=== PATIENT | male | born 1925 | race Caucasian/White ===

== ENCOUNTER 2016-09-03 13:26 | Inpatient (IN) | payer OTHER ==
[2016-09-03] MEDS ORDERED: NS 500 ML IV ONE (14:22)
[2016-09-03 14:53] LABS: % IMMATURE GRANULYOCYTES 0.6 % (0.0-1.1); ABSOLUTE IMMATURE GRANULOCYTES 0.07 10^3/uL (0.00-0.10); ADD DIFF? NO; ADD MORPH? NO; ADD SCAN? NO; ATYPICAL LYMPHOCYTE FLAG 0 (0-99); FRAGMENT RBC FLAG 20 (0-99); HEMATOCRIT 25.9 % (40.0-51.0); HEMOGLOBIN 8.1 g/dL (13.7-17.5); LEFT SHIFT FLG 0 (0-99); LIPEMIA HEMOLYSIS FLAG 80 (0-99); MEAN CELL HEMOGLOBIN 25.7 pg (27.9-34.1); MEAN CELL HEMOGLOBIN CONCENTR. 31.3 g/dL (32.4-36.7); MEAN CELL VOLUME 82.2 fL (81.5-99.8); MEAN PLATELET VOLUME 9.4 fL (8.7-11.7); PLATELET CLUMPS FLAG 0 (0-99); PLATELET COUNT 394 10^3/uL (150-400); RED BLOOD CELL COUNT 3.15 10^6/uL (4.40-6.38); RED CELL DISTRIBUTION WIDTH 15.2 % (11.5-15.2)
[2016-09-03 15:12] LABS: ALBUMIN 2.7 g/dL (3.5-5.0); BILIRUBIN,TOTAL 0.4 mg/dL (0.1-1.4); BILIRUBIN-CONJUGATED 0.4 mg/dL (0.0-0.5); CALCIUM 9.8 mg/dL (8.5-10.4); CREATININE 2.9 mg/dL (0.7-1.3); POTASSIUM 3.9 mEq/L (3.5-5.2); TOTAL PROTEIN 5.6 g/dL (6.3-8.2)
[2016-09-03] MEDS ORDERED: NS 1,000 ML IV ONE (15:19)
[2016-09-03 15:24] LABS: INR 1.05 (0.83-1.16); PROTIME(PATIENT) 13.5 SEC (12.0-15.0)
[2016-09-03] MEDS ORDERED: NS 100 ML BAG (MINI-BAG) IV ONE (15:30)
[2016-09-03 15:31] LABS: OCCULT BLOOD FECES POSITIVE (NEGATIVE)
--- NOTE | 2016-09-03 15:31 | UCPHY ---
H & P Patient Type: Established Chief Complaint Nursing Narrative: Pt reports lethargy & dairrhea x 1 1/2 wks. reports black with blood since testerday. Denied nausea, vomiting or pain. Time Seen by Provider: 09/03/16 14:59 HPI/ROS: This patient presents with generalized fatigue in the setting of dark tarry stools that started 4 days prior to arrival. He also had some loose stools for few days prior to that. He was taking Kaopectate for the loose stools last week but stopping Kaopectate and still had dark tarry stools and then noticed a bit of bright blood in his brighter blood-wine color this morning the prompted his visit. During the same period time he reports increasing fatigue over the past week and his reports that he has no ambition. He admits he does feel very tired and he also feels anorexia with some crampy abdominal discomfort in the periumbilical and lower belly region. He tells me that it is colon cancer ." However, he has never had endoscopy. ROS: He has not noticed any fevers. No lightheadedness. He reports no chest pain or shortness of breath. He has no upper belly pain. He denies any recent NSAID use other than a baby aspirin a day. No nausea or vomiting. 10 point ROS is otherwise negative Source: Patient, Family (His also provides history) Exam Limitations: No limitations - Personal History Current Tetanus/Diphtheria Vaccine: Yes - Medical/Surgical History PMH: Pacemaker Inguinal hernia repair Gout Renal insufficiency-sees Dr. Cardoza Hx Asthma: No Hx Chronic Respiratory Disease: No Hx Diabetes: No Hx Cardiac Disease: Yes Hx Renal Disease: No Hx Cirrhosis: No Hx Alcoholism: No Hx HIV/AIDS: No Hx Splenectomy or Spleen Trauma: No Other PMH: tonsils, pacemaker & 1 revision, inguinal hernia repair, gout - Family History Significant Family History: No pertinent family hx - Social History Smoking Status: Former smoker (Quit several years ago.) Alcohol Use: Other (Until this past handful of days the patient typically had a glass a wine or so at night of alcohol.) Drug Use: None - Physical Exam Exam: Vital signs are notable for positive orthostatic changes. When he stands up his systolic pressure drops to 88 & his pulse goes from 95 to 110. General Appearance: Pleasant elderly male Alert, no distress. Eyes: Pupils equal and round no pallor or injection. ENT, Mouth: Mucous membranes moist. Respiratory: There are no retractions, lungs are clear to auscultation. Cardiovascular: Regular rate and rhythm. Gastrointestinal: Hyperactive bowel sounds, soft, nontender Rectal exam: Patient has a 2 x 1 cm hemorrhoid with odd appearing tissue versus exophytic lesion. No particular tenderness. This is at 9 o'clock in lithotomy position stool is red wine color/melena Neurological: Alert with no focal deficits appreciated. Skin: Warm and dry, no rashes. Musculoskeletal: Neck is supple nontender. Extremities are symmetrical, full range of motion. Psychiatric: Patient is mildly agitated but otherwise pleasant and reluctantly cooperative DIFFERENTIAL DIAGNOSIS: After history and physical exam differential diagnosis was considered for ulcer/upper GI bleed versus lower GI bleed from colon cancer , diverticulitis, bleeding polyp, large internal hemorrhoid Constitutional: Initial Vital Signs Heart Rate 112 H 09/03/16 14:22 Blood Pressure 85/55 L 09/03/16 14:22 O2 Delivery Mode Room Air Allergies/Adverse Reactions: No Known Allergies Allergy (Verified 09/03/16 15:00) Home Medications: Medication Instructions Recorded Lisinopril [Zestril 10 mg (*)] 10 mg PO DAILY 10/26/11 Cholecalciferol (Vitamin D3) 2,000 unit PO DAILY 10/29/13 [Vitamin D-3] Lasix 09/03/16 PRILOSEC 09/03/16 Prednisone 09/03/16 Medical Decision Making - Diagnostics EKG Interpretation: 12 lead EKG performed at 3:36 p.m. Ventricular pacer with capture-rate of 86 QRS of 142 [place]: P of 0, QRS of-44, T of 110 Overall assessment ventricular pacing with capture at a rate of 86. ED Course/Re-evaluation: IV normal saline bolus placed on a monitor I counseled patient regarding the need for admission I spoke with the hospitalist at [facility] who accepts the patient to a PCU bed. At the moment no beds are available but some is being discharged soon per bed - board staff. I left a message with the on-call GI specialist-on his cell phone - Dr. Almazan at 15:30 as recommended by the staff at [facility] who answered the chief cardiopulmonary technologist phone number. I spoke with Dr. Almazan at approximately 3: 45 a.m. and he would like to proceed with upper endoscopy. Will transport the patient to [facility] for further workup and admission. They are working on a step-down unit bed has no PCU is available Discussion on stable GI bleed with melena orthostatic changes, acute anemia and history of renal insufficiency warranting emergent admission further evaluation - Data Points Laboratory Results: Laboratory Results 09/03/16 14:45 09/03/16 14:45 09/03/16 09/03/16 15:15 14:45 WBC 12.36 H 10^3/uL (3.80-9.50) RBC 3.15 L 10^6/uL (4.40-6.38) Hgb 8.1 L g/dL (13.7-17.5) Hct 25.9 L % (40.0-51.0) MCV 82.2 fL (81.5-99.8) MCH 25.7 L pg (27.9-34.1) MCHC 31.3 L g/dL (32.4-36.7) RDW 15.2 % (11.5-15.2) Plt Count 394 10^3/uL (150-400) MPV 9.4 fL (8.7-11.7) Neut % (Auto) 78.1 H % (39.3-74.2) Lymph % (Auto) 14.0 L % (15.0-45.0) Faulkner % (Auto) 6.7 % (4.5-13.0) Eos % (Auto) 0.4 L % (0.6-7.6) Baso % (Auto) 0.2 L % (0.3-1.7) Nucleat RBC Rel Count 0.0 % (0.0-0.2) Absolute Neuts (auto) 9.65 H 10^3/uL (1.70-6.50) Absolute Lymphs (auto) 1.73 10^3/uL (1.00-3.00) Absolute Monos (auto) 0.83 H 10^3/uL (0.30-0.80) Absolute Eos (auto) 0.05 10^3/uL (0.03-0.40) Absolute Basos (auto) 0.03 10^3/uL (0.02-0.10) Absolute Nucleated RBC 0.00 10^3/uL (0-0.01) Immature Gran % 0.6 % (0.0-1.1) Immature Gran # 0.07 10^3/uL (0.00-0.10) PT 13.5 SEC (12.0-15.0) INR 1.05 (0.83-1.16) APTT 32.0 SEC (23.0-38.0) VBG Lactic Acid 1.0 mmol/L (0.7-2.1) Sodium 136 mEq/L (134-144) Potassium 3.9 mEq/L (3.5-5.2) Chloride 104 mEq/L (97-110) Carbon Dioxide 19 L mEq/l (22-31) Anion Gap 13 mEq/L (8-16) BUN 62 H mg/dL (7-23) Creatinine 2.9 H mg/dL (0.7-1.3) Estimated GFR 21 Glucose 109 H mg/dL (70-100) Calcium 9.8 mg/dL (8.5-10.4) Total Bilirubin 0.4 mg/dL (0.1-1.4) Conjugated Bilirubin 0.4 mg/dL (0.0-0.5) Unconjugated Bilirubin 0.0 mg/dL (0.0-1.1) AST 15 L IU/L (17-59) ALT 25 IU/L (21-72) Alkaline Phosphatase 77 IU/L (38-126) Total Protein 5.6 L g/dL (6.3-8.2) Albumin 2.7 L g/dL (3.5-5.0) Stool Occult Bld Scrn POSITIVE H (NEGATIVE) C. difficile Tox (PCR) Pending Medications Given: Discontinued Medications Sodium Chloride (Ns) 500 mls @ 0 mls/hr IV ONCE ONE PRN Reason: As Directed Stop: 09/03/16 14:23 Last Admin: 09/03/16 15:20 Dose: Not Given Sodium Chloride (Ns) 1,000 mls @ 0 mls/hr IV ONCE ONE PRN Reason: Wide Open Stop: 09/03/16 15:20 Last Admin: 09/03/16 15:10 Dose: 1,000 mls Departure - Departure Disposition: [facility] In[facility] Acute Clinical Impression: Orthostatic hypotension, Acute blood loss anemia GI bleed Qualifiers: GI bleed type/associated pathology: melena Qualifier Code: (K92.1) Melena Condition: Serious - PQRS PQRS Measurement: 134: Depression screening and followup, PRIME MD-PHQ2 (12 years and older) Over the last 2 weeks, how often have you been bothered by any of the following problems? 1. Feeling down, depressed, or hopeless? 2. Little interest or pleasure in doing things? Patient answered no to both 1 and 2 130: Documentation of medications. Reviewed all patient medications, doses, route and frequency. 226: Do you smoke? [No.] 47: 65 and older: Advanced care planning. Patient designates surrogate decision maker as spouse. 51: 18 years old and older with diagnosis of COPD, spirometry performance. NA 52: 18 years old and older with COPD and symptoms of COPD or FEV1<60% predicted prescribed a B Agonist. NA
--- NOTE | 2016-09-03 15:32 | DX ---
PA and lateral chest x-ray 14 and 53 hours. History: Dry cough. Findings: Comparison to October 26, 2011. Heart size remains borderline enlarged. Pulmonary vasculature is mildly prominent centrally similar t o the prior study. The lungs are clear without consolidation, effusion, or pneumothorax. Dual-lead pa cemaker unit is in stable position. There has been mild progression of ankylosis midthoracic spine wi th stable mild compression superior endplate of T11. There is mild increase in compression of L1 sinc e the prior study. Impression: 1. No active cardiopulmonary disease seen. 2. 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 3. Stable mild to moderate anterior wedge compression superior endplate of T11 with mild increase in compression superior endplate of L1 since October,.
[2016-09-03] MEDS: PANTOPRAZOLE SODIUM 40 MG VIAL IVP ONE ×2 (15:36→16:02)
[2016-09-03] MEDS ORDERED: PANTOPRAZOLE SODIUM 80 MG in NS 100 ML IV ONE (15:38)
--- NOTE | 2016-09-03 15:38 | CPEKG ---
Heart Rate: 86 RR Interval: 698 P-R Interval: 226 QRSD Interval: 142 QT Interval: 404 QTC Interval: 484 P Donora: 0 QRS Donora: -44 T Wave Donora: 110 EKG Severity - ABNORMAL ECG - EKG Impression: VENTRICULAR-PACED RHYTHM Electronically Signed By: Henrry Echeverria 03-Sep-2016 16:14:41
[2016-09-03] MEDS ORDERED: LIDOCAINE 2% 5 ML SDV ONE (17:11)
[2016-09-03] MEDS ORDERED: PROPOFOL 200 MG/20 ML VIAL ONE (17:11)
[2016-09-03] MEDS ORDERED: METOCLOPRAMIDE 10 MG/2 ML VIAL IVP PRN (17:44)
--- NOTE | 2016-09-03 17:46 | SOAPPROG ---
SOAP Progress Note Assessment/Plan: Assessment:EGD for melena/hematochezia shows no bleeding sites. Large hiatal hernia sac. No blood or coffee grounds noted. Will proceed to colonoscopy tomorrow afternoon at 1630. Pt to start prep in AM. Plan: 09/03/16 17:45 Objective: Vital Signs Temp Pulse Resp BP Pulse Ox 36.3 C 89 18 107/60 97 09/03/16 14:40 09/03/16 16:00 09/03/16 16:00 09/03/16 16:00 09/03/16 16:00 09/02/16 09/03/16 09/04/16 05:59 05:59 05:59 Intake Total 1100 Balance 1100 PT 13.5 SEC (12.0-15.0) 09/03/16 14:45 INR 1.05 (0.83-1.16) 09/03/16 14:45 ICD10 Worksheet Patient Problems: Problems Problem Status Diagnosed Acute blood loss anemia Acute GI bleed Acute Orthostatic hypotension Acute Cellulitis Acute
--- NOTE | 2016-09-03 18:11 | GPN ---
[f rep st] PROCEDURE NOTE DATE OF PROCEDURE: 09/03/2016 PROCEDURE: Gastroscopy. INDICATIONS: Mr. Guthrie is an 89-year-old male with no previous history of GI disease, who has had several days of melena and reddish, maroon stools. He complains of lower abdominal pain. He has nev er had an ulcer. He denies being on any recent Advil or aspirin products. Endoscopy is being perfor med urgently to rule out upper GI hemorrhage as a source of the melena. DESCRIPTION OF PROCEDURE: After proper consent was obtained, patient was placed in left lateral dec ubitus position, received IV general anesthesia due to his ASA class of 3. Videogastroscope was introduced through the mouth, down the esophagus, into the stomach, past the pyl orus, into the duodenum. The findings were as follows: 1. Esophagus was normal. 2. Large hiatal hernia, sac approximately 5 cm with no Nicholas lesions or other abnormalities noted. 3. Stomach and duodenum were normal. 4. No blood, coffee-grounds, or other evidence of recent bleeding was noted. At this point, the instrument was removed. Patient tolerated the procedure well and was returned to the recovery room in stable condition. RECOMMENDATIONS: Patient will be admitted per hospitalist team. I have scheduled him for a colonosc opy tomorrow. He has never had 1 before. Bowel prep will start in the morning and he is scheduled f or 1630. If that exam is normal, then would need to consider a small bowel source of bleeding and pr obably need a camera pill endoscopy to evaluate that region. /[id number]/MODL
[2016-09-03] MEDS ORDERED: HYDROmorphONE/DILAUDID 1 MG/ML SYR IVP PRN (19:56)
[2016-09-03] MEDS ORDERED: PROMETHAZINE HCL 25 MG/ML VIAL IVP PRN (19:56)
[2016-09-03] MEDS ORDERED: ONDANSETRON DISINTEGRATING 4 MG TAB PO PRN (19:56)
[2016-09-03] MEDS ORDERED: oxyCODONE IR 5 MG TAB PO PRN (19:56)
[2016-09-03] MEDS ORDERED: PANTOPRAZOLE SODIUM 80 MG in NS 100 ML IV SCH (20:30)
[2016-09-03] MEDS: NS 1,000 ML IV SCH (20:33)
[2016-09-03 21:38] LABS: HEMATOCRIT 23.4 % (40.0-51.0); HEMOGLOBIN 7.3 g/dL (13.7-17.5)
--- NOTE | 2016-09-03 22:01 | GHP ---
[f rep st] HISTORY AND PHYSICAL DATE OF ADMISSION: 09/03/2016 CHIEF COMPLAINT: Weakness. HISTORY: This is an 89-year-old man with past medical history of chronic kidney disease and complete heart block, status post permanent pacemaker placement, who presents with complaints of generalized weakness and malaise in the setting of dark tarry stools followed by bright red blood per rectum for the last several days. He notes he was having dark and tarry stools for about 4 days, he thinks, and in the last 24 hours this has become bright red. He is somewhat of a poor historian, though he is a ble to tell me that he feels "blah" and as if he "has no ambition." When I asked him if this is a ch ronic or more acute thing, he states he thinks it is more acute and recent. He denies dizziness or l ightheadedness. He denies chest pain. He is really not very interested in giving me much of a histo ry and tells me that all of it is "in the chart somewhere." He denies NSAID use but does admit to ba by aspirin daily. He has never had similar symptoms in the past. PAST MEDICAL HISTORY: Includes: 1. Complete heart block, status post permanent pacemaker. 2. Gout. 3. Hypertension. 4. Chronic kidney disease; baseline creatinine around 2.1. 5. History of upper extremity deep vein thrombosis. 6. History of iron-deficiency anemia. PAST SURGICAL HISTORY: 1. Inguinal hernia repair. 2. Tonsillectomy. 3. Permanent pacemaker placement. FAMILY HISTORY: Parents are . SOCIAL HISTORY: The patient drinks about 2 beers per day. He denies tobacco use. He is . Mark lira has 2 children. REVIEW OF SYSTEMS: A 10-point review of systems obtained. Negative except as per HPI. MEDICATIONS: Include: 1. Prednisone. 2. Omeprazole. 3. Lisinopril. 4. Iron. 5. Lasix. 6. Cholecalciferol. ALLERGIES: No known drug allergies. PHYSICAL EXAM: VITAL SIGNS: BP 97/64, heart rate 96, respiratory rate 22, O2 sats 100% on room air, temperature is 35.7. GENERAL APPEARANCE: Elderly man. He is awake and alert. He is in no acute d istress. EYES: Anicteric. HENT: Oropharynx clear. CARDIOVASCULAR: Mildly tachy, regular, no MRG . PULMONARY: CTA bilaterally to anterior exam. ABDOMEN: Soft, nontender. Positive bowel sounds. EXTREMITIES: No clubbing, cyanosis, or edema. SKIN: Warm, dry, well perfused. NEURO/PSYCH: Orie nted and appropriate. He is a little bit reluctant to talk too much, however. CLINICAL DATA: Labs reviewed. Significant for white blood cell count of 12.36, hemoglobin of 8.1, d own from 9.9, hematocrit of 25.9, down from 31.5, platelets of 394. Coags are within normal limits. Lactic acid is normal. Chemistry is remarkable for BUN of 62, creatinine of 2.9, up from 42 and 2.4 . EKG, reviewed and interpreted independently by myself, shows V paced rhythm; otherwise unremarkable. No change from prior. Chest x-ray, reviewed and interpreted independently by myself, shows no active cardiopulmonary diseas e. ASSESSMENT AND PLAN: This is an 89-year-old man with past medical history of chronic kidney disease and gout, presenting with gastrointestinal bleed. 1. Gastrointestinal bleed, with concern for upper bleed given dark stools. He has already undergone EGD per Dr. Almazan which did not show evidence of active bleed but does show a large hiatal hernia s ac. Plan is for colonoscopy to be performed in the morning. He has been on a Protonix drip which wi ll be continued for now. Serial H and H will be obtained. He is on prednisone likely for his gout, possibly raising his risk for ulcer. However, again, this is not noted on upper endoscopy. 2. [id number] iron-deficiency anemia. Patient with baseline anemia; however, he does have a d ecrease in his usual H and H. No indication for transfusion at the time being. Again, we will repea t hemoglobin and hematocrit this evening and further evaluation for his blood loss is as per above. 3. Acute kidney injury on chronic kidney disease. Patient does have a mild bump in his creatinine a nd BUN in the setting of acute gastrointestinal bleed. IV fluids to run overnight. I suspect this i s a prerenal etiology in the setting of GI bleed and hypotension. 4. Hypertension. Currently blood pressure has been slightly low with orthostatic changes. Will hol d his usual BP medications including Lasix and lisinopril for now. 5. Gout. Prednisone is listed on his home medications. I am not clear if that is an active medicat ion currently, and patient was unable to give me that information. Should he remain hypotensive, I w ould consider stress dose steroids for possibility of acute adrenal insufficiency; though, again at t his point, this is more likely related to his gastrointestinal bleed and would prefer to avoid steroi ds if possible. DISPOSITION: Inpatient status. High-risk presenting issues. CODE STATUS: This is reviewed with the patient. He initially stated it does not make any difference , but then said he would like us to do "whatever we need to do." I did explain that we do not have t o do anything, that it is up to him, but he continued to state he would like us to do everything, and his would decide should he be unable to make decisions. In reviewing his chart, this is in jason ping with his preference in the past, so he will be kept full code. The patient is new to my care. Old records reviewed and summarized as per HPI and Past Medical Histo ry. Care plan reviewed with urgent care physician including plans for GI consultation. /[id number]/MODL
[2016-09-04 00:08] LABS: COLOR YELLOW; LEUKOCYTE ESTERASE,URINE NEGATIVE (NEGATIVE); NITRITE,URINE NEGATIVE (NEGATIVE)
[2016-09-04 00:09] LABS: BACTERIA TRACE /hpf (NONE SEEN); MUCUS TRACE /lpf (NONE-1+)
[2016-09-04] MEDS ORDERED: GOLYTELY 4000 ML BTL PO ONE (07:00)
[2016-09-04 07:03] LABS: % IMMATURE GRANULYOCYTES 0.4 % (0.0-1.1); ABSOLUTE IMMATURE GRANULOCYTES 0.04 10^3/uL (0.00-0.10); ADD DIFF? NO; ADD MORPH? NO; ADD SCAN? NO; ATYPICAL LYMPHOCYTE FLAG 0 (0-99); FRAGMENT RBC FLAG 10 (0-99); HEMOGLOBIN 8.1 g/dL (13.7-17.5); LEFT SHIFT FLG 0 (0-99); LIPEMIA HEMOLYSIS FLAG 80 (0-99); MEAN CELL HEMOGLOBIN 26.8 pg (27.9-34.1); MEAN CELL HEMOGLOBIN CONCENTR. 32.4 g/dL (32.4-36.7); MEAN CELL VOLUME 82.8 fL (81.5-99.8); MEAN PLATELET VOLUME 9.7 fL (8.7-11.7); PLATELET CLUMPS FLAG 0 (0-99); PLATELET COUNT 331 10^3/uL (150-400); RED BLOOD CELL COUNT 3.02 10^6/uL (4.40-6.38); RED CELL DISTRIBUTION WIDTH 15.6 % (11.5-15.2)
[2016-09-04 07:06] LABS: ANION GAP 7 mEq/L (8-16); CALCIUM 9.1 mg/dL (8.5-10.4); CARBON DIOXIDE 18 mEq/l (22-31); CHLORIDE 111 mEq/L (97-110); CREATININE 2.6 mg/dL (0.7-1.3); GLOMERULAR FILTRATION RATE 23; GLUCOSE 83 mg/dL (70-100); MAGNESIUM 1.5 mg/dL (1.6-2.3); POTASSIUM 3.9 mEq/L (3.5-5.2); SODIUM 136 mEq/L (134-144)
[2016-09-04] MEDS: PANTOPRAZOLE SODIUM 40 MG in NS 100 ML IV SCH ×2 (09:03→21:40)
--- NOTE | 2016-09-04 09:24 | HOSPPROG ---
Hospitalist Progress Note Assessment/Plan: #Acute blood loss anemia -due to hemaochezia/melena -EGD unrevealing. Colonoscopy showed sigmoid mass -H/H stable after transfusion #LGIB -colonoscopy by Dr. Almazan showed sigmoid mass. He will speak to surgery #Gout: cont pred #Diet: ADAt #DVT px: SCDs #Disp: warrant inpatient admission with acute GIB and new colon mass Subjective: denies pain or dizziness Objective: Vital Signs Temp Pulse Resp BP Pulse Ox 36.4 C 89 14 119/52 L 96 09/04/16 08:00 09/04/16 08:00 09/04/16 08:00 09/04/16 08:00 09/04/16 08:00 Laboratory Results 09/04/16 06:09 09/04/16 06:09 09/03/16 09/04/16 09/05/16 05:59 05:59 05:59 Intake Total 2310 Balance 2310 PT 13.5 SEC (12.0-15.0) 09/03/16 14:45 INR 1.05 (0.83-1.16) 09/03/16 14:45 - Physical Exam Constitutional: no apparent distress Eyes: PERRL, pale conjunctiva Ears, Nose, Mouth, Throat: moist mucous membranes Cardiovascular: regular rate and rhythym Respiratory: no respiratory distress, no rales or rhonchi Gastrointestinal: normoactive bowel sounds, soft, non-tender abdomen Skin: warm Musculoskeletal: full muscle strength Neurologic: AAOx3 Psychiatric: interacting appropriately ICD10 Worksheet Patient Problems: Problems Problem Status Diagnosed Acute blood loss anemia Acute GI bleed Acute Orthostatic hypotension Acute Cellulitis Acute
[2016-09-04] MEDS ORDERED: GOLYTELY 4000 ML BTL ONE (09:51)
[2016-09-04] MEDS: ONDANSETRON 4 MG/2 ML VIAL IVP PRN (10:36)
[2016-09-04 12:43] LABS: CLOSTRIDIUM DIFFICILE DNA NEGATIVE (NEGATIVE)
[2016-09-04 14:47] LABS: HEMATOCRIT 25.6 % (40.0-51.0); HEMOGLOBIN 8.4 g/dL (13.7-17.5)
--- NOTE | 2016-09-04 16:38 | GCON ---
[f rep st] CONSULTATION CRITICAL CARE CONSULTATION DATE OF CONSULTATION: 09/04/2016 REQUESTING PHYSICIAN: Cayden Rivera MD CHIEF COMPLAINT: GI bleed. HISTORY OF PRESENT ILLNESS: This 89-year-old male has noted dark tarry stools with some red blood as well per the rectum. He did not have hematemesis. There was no chest pain, and he had really no ab dominal pain with this. He has a history of chronic kidney disease and also has a complete heart blo ck with a permanent pacemaker implanted. He certainly has been weak over the past several days, but has not fallen or had any syncopal episodes. He takes aspirin daily but has not used any NSAIDs. EG D was done and was normal. PAST MEDICAL HISTORY: 1. Complete heart block with pacemaker. 2. Gout. 3. Hypertension. 4. Chronic kidney disease. 5. Remote history of upper extremity DVT. PAST SURGICAL HISTORY: 1. Inguinal hernia repair. 2. Tonsillectomy. 3. Permanent pacemaker. FAMILY HISTORY: No early arteriosclerotic vascular disease and no familial types of cancer. SOCIAL HISTORY: He has never used tobacco or illicit drugs. He drinks 2 beers a day. The patient h as 2 children. REVIEW OF SYSTEMS: Otherwise noncontributory x10 points, except as included above. PHYSICAL EXAMINATION: VITAL SIGNS: Blood pressure 98/50, with pulse of 90, respiratory rate of 16, oxygen saturation of 98% on room air, and he is afebrile. SKIN: Normal. HEAD: Without external ev idence of trauma. EYES: PERRL. External ocular movements full. Fundi not visualized. EARS: Tamanna ls clear. Tympanic membranes intact. NOSE: Without septal deviation or polyps. MOUTH/PHARYNX: Cl ear without lesions. NECK: Supple, without adenopathy. No jugular venous distention. CHEST: Alexandra r to auscultation and percussion. HEART: PMI at 5th intercostal space, midclavicular line. S1 and S2 normal. There is no S3, S4, or murmur. ABDOMEN: Soft, without organomegaly or masses. Bowel so unds are present. There is no tenderness. EXTREMITIES: Full range of motion without clubbing, cyan osis, or peripheral edema. DATABASE: As noted above, the EGD was negative. Chest x-ray shows no acute infiltrates. White bloo d count is 10,600 with hematocrit of 25, platelets of 331,000. INR is 1.005. Chemistry panel shows a slightly low bicarb of 18 with BUN of 55 and creatinine of 2.6. He has had an elevated creatinine before, but it looks like his baseline creatinine is closer to 2.1. IMPRESSION: Gastrointestinal bleed, presumably lower, as esophagogastroduodenoscopy was normal. PLAN: The patient will have a colonoscopy today. Repeat hematocrits will be obtained. CORE status has been discussed with the patient and there is some uncertainty with regard to that in the patient' s mind and, so far, he is a full code. /[id number]/MODL
[2016-09-04] MEDS ORDERED: PROPOFOL 200 MG/20 ML VIAL ONE ×2 (16:49)
--- NOTE | 2016-09-04 17:10 | SOAPPROG ---
SOAP Progress Note Assessment/Plan: Assessment:EGD for melena/hematochezia shows no bleeding sites. Large hiatal hernia sac. No blood or coffee grounds noted. Will proceed to colonoscopy tomorrow afternoon at 1630. Pt to start prep in AM. Plan: 09/03/16 17:45 09/04/16 17:09 Colonoscopy shows apple core lesion at 20 cm, unable to pass beyond it. Biopsies taken and distal margin tattooed with Parris ink. Prep was poor. Objective: Vital Signs Temp Pulse Resp BP Pulse Ox 36.3 C 90 16 98/50 L 98 09/04/16 12:00 09/04/16 12:00 09/04/16 12:00 09/04/16 12:00 09/04/16 12:00 Laboratory Results 09/04/16 14:40 09/04/16 06:09 09/03/16 09/04/16 09/05/16 05:59 05:59 05:59 Intake Total 2310 Balance 2310 PT 13.5 SEC (12.0-15.0) 09/03/16 14:45 INR 1.05 (0.83-1.16) 09/03/16 14:45 ICD10 Worksheet Patient Problems: Problems Problem Status Diagnosed Acute blood loss anemia Acute GI bleed Acute Orthostatic hypotension Acute Cellulitis Acute
--- NOTE | 2016-09-04 18:39 | GPN ---
[f rep st] PROCEDURE NOTE DATE OF PROCEDURE: 09/04/2016 PROCEDURE: Attempted colonoscopy with biopsies. INDICATIONS: The patient is an 89-year-old male admitted for hematochezia and anemia. Gastroscopy y esterday was essentially negative. Colonoscopy is being performed to evaluate. PROCEDURE IN DETAIL: After proper consent was obtained, the patient was placed in the left lateral d ecubitus position and received IV general anesthesia due to his ASA class of 3. The video colonoscope was introduced through the anus and rectum up the left colon approximately 20 c m, at which point a large apple-core lesion was noted. This could not be passed with the instrument. The lesion was biopsied and tattoos were placed with Parris ink just distal to the lesion. The remainder of the sigmoid colon and rectum was grossly normal. At this point, the instrument was removed. The patient tolerated procedure well and was returned to the recovery room in stable condition. RECOMMENDATIONS: The patient will need surgical consultation for this lesion regardless of its stage . This will probably cause obstruction in near future and is also the source of bleeding. I have frankie arzate with the family and will obtain surgical consultation. /[id number]/MODL
--- NOTE | 2016-09-04 20:33 | SOAPPROG ---
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 and anemia/ hct 25 abd soft wo masses or hernias risks and options fully discussed with pt and family who wish to proceed with surgery Plan: left colectomy in am/ may need colostomy 09/04/16 20:30 Objective: Vital Signs Temp Pulse Resp BP Pulse Ox 36.5 C 90 16 118/78 97 09/04/16 18:25 09/04/16 18:25 09/04/16 18:25 09/04/16 18:25 09/04/16 18:25 Laboratory Results 09/04/16 14:40 09/04/16 06:09 09/03/16 09/04/16 09/05/16 05:59 05:59 05:59 Intake Total 2310 250 Balance 2310 250 PT 13.5 SEC (12.0-15.0) 09/03/16 14:45 INR 1.05 (0.83-1.16) 09/03/16 14:45 ICD10 Worksheet Patient Problems: Problems Problem Status Diagnosed Acute blood loss anemia Acute GI bleed Acute Orthostatic hypotension Acute Cellulitis Acute
[2016-09-05] MEDS: NS 1,000 ML IV SCH ×2 (00:42→08:54)
[2016-09-05] MEDS ORDERED: cefOXitin SODIUM 1 GM in D5W 50 ML IV ONE (06:00)
[2016-09-05 06:42] LABS: % IMMATURE GRANULYOCYTES 0.4 % (0.0-1.1); ABSOLUTE IMMATURE GRANULOCYTES 0.05 10^3/uL (0.00-0.10); ADD DIFF? NO; ADD MORPH? NO; ADD SCAN? NO; ATYPICAL LYMPHOCYTE FLAG 0 (0-99); FRAGMENT RBC FLAG 10 (0-99); HEMATOCRIT 23.9 % (40.0-51.0); HEMOGLOBIN 7.7 g/dL (13.7-17.5); LEFT SHIFT FLG 0 (0-99); LIPEMIA HEMOLYSIS FLAG 80 (0-99); MEAN CELL HEMOGLOBIN 27.3 pg (27.9-34.1); MEAN CELL HEMOGLOBIN CONCENTR. 32.2 g/dL (32.4-36.7); MEAN CELL VOLUME 84.8 fL (81.5-99.8); MEAN PLATELET VOLUME 9.2 fL (8.7-11.7); PLATELET CLUMPS FLAG 0 (0-99); PLATELET COUNT 285 10^3/uL (150-400); RED BLOOD CELL COUNT 2.82 10^6/uL (4.40-6.38); RED CELL DISTRIBUTION WIDTH 15.5 % (11.5-15.2)
[2016-09-05 07:07] LABS: ANION GAP 11 mEq/L (8-16); CALCIUM 9.2 mg/dL (8.5-10.4); CARBON DIOXIDE 17 mEq/l (22-31); CHLORIDE 114 mEq/L (97-110); CREATININE 2.5 mg/dL (0.7-1.3); GLOMERULAR FILTRATION RATE 24; GLUCOSE 74 mg/dL (70-100); POTASSIUM 4.3 mEq/L (3.5-5.2); SODIUM 142 mEq/L (134-144)
[2016-09-05] MEDS ORDERED: cefOXitin SODIUM 2 GM in D5W 100 ML IV ONE (07:43)
--- NOTE | 2016-09-05 08:28 | HOSPPROG ---
Hospitalist Progress Note Assessment/Plan: #Acute blood loss anemia -due to hemaochezia/melena -EGD unrevealing. Colonoscopy showed sigmoid mass -H/H stable after transfusion #LGIB -colonoscopy by Dr. Almazan showed sigmoid mass. -plan for colectomy today by Dr. Cortes #Gout: cont pred #CKD: Cr at baseline #Diet: NPO for surgery #DVT px: SCDs #Disp: warrant inpatient admission with acute GIB and new colon mass Subjective: no abd pain Objective: Vital Signs Temp Pulse Resp BP Pulse Ox 36.3 C 99 21 H 99/58 L 96 09/05/16 08:00 09/05/16 08:00 09/05/16 08:00 09/05/16 08:00 09/05/16 08:00 Laboratory Results 09/05/16 06:30 09/05/16 06:30 09/04/16 09/05/16 09/06/16 05:59 05:59 05:59 Intake Total 2310 1440 Output Total 50 Balance 2310 1390 PT 13.5 SEC (12.0-15.0) 09/03/16 14:45 INR 1.05 (0.83-1.16) 09/03/16 14:45 - Physical Exam Constitutional: no apparent distress Eyes: PERRL Ears, Nose, Mouth, Throat: moist mucous membranes, hearing normal Cardiovascular: regular rate and rhythym, no murmur, rub, or gallop Respiratory: no respiratory distress, no rales or rhonchi Gastrointestinal: normoactive bowel sounds, soft, non-tender abdomen Genitourinary: no bladder fullness Skin: warm Musculoskeletal: full muscle strength Neurologic: CN II-XII Intact ICD10 Worksheet Patient Problems: Problems Problem Status Diagnosed Acute blood loss anemia Acute GI bleed Acute Orthostatic hypotension Acute Cellulitis Acute
--- NOTE | 2016-09-05 09:36 | PDINTPN ---
Portfolio Administrator Progress Note Assessment/Plan: Assessment: #GIB due to a sigmoid mass #CKD with a baseline creatinine of about Plan: Surgery today, ? colostomy He is on IV saline now and will need close attention to fluids periop due to his renal disease 09/05/16 09:31 Subjective: He is hungry Objective: Vital Signs Temp Pulse Resp BP Pulse Ox 36.3 C 99 21 H 99/58 L 96 09/05/16 08:00 09/05/16 08:00 09/05/16 08:00 09/05/16 08:00 09/05/16 08:00 Laboratory Results 09/05/16 06:30 09/05/16 06:30 09/04/16 09/05/16 09/06/16 05:59 05:59 05:59 Intake Total 2310 1440 Output Total 50 Balance 2310 1390 PT 13.5 SEC (12.0-15.0) 09/03/16 14:45 INR 1.05 (0.83-1.16) 09/03/16 14:45 Physical Exam - Physical Exam General Appearance: alert, no apparent distress EENT: normal ENT inspection Neck: non-tender Respiratory: lungs clear Cardiac/Chest: regular rate, rhythm Abdomen: non-tender Back: Normal inspection Skin: warm/dry Lymphatic: no adenopathy Extremities: non-tender, No pedal edema Neuro/Psych: alert, oriented x 3 ICD10 Worksheet Patient Problems: Problems Problem Status Diagnosed Acute blood loss anemia Acute GI bleed Acute Orthostatic hypotension Acute Cellulitis Acute
[2016-09-05] MEDS ORDERED: HEPARIN 1000 UNIT/1 ML MDV ONE (11:03)
[2016-09-05] MEDS ORDERED: ceFAZolin 1 GM/5 ML SYR ONE (11:04)
[2016-09-05] MEDS ORDERED: BUPIVACAINE 0.5% 30 ML SDV ONE (11:04)
--- NOTE | 2016-09-05 12:14 | SOAPPROG ---
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 and anemia/ hct 25 abd soft wo masses or hernias risks and options fully discussed with pt and family who wish to proceed with surgery Plan: left colectomy in am/ may need colostomy 09/04/16 20:30 09/05/16 12:13 HCT SLIGHTLY LOWER/ ABD SOFT/ RISKS AND OPTIONS FULLY DISCUSSED AGAIN/ PROCEED WITH LAP COLECTOMY Objective: Vital Signs Temp Pulse Resp BP Pulse Ox 36.4 C 100 18 103/55 L 99 09/05/16 11:34 09/05/16 11:34 09/05/16 11:34 09/05/16 11:34 09/05/16 11:34 Laboratory Results 09/05/16 06:30 09/05/16 06:30 09/04/16 09/05/16 09/06/16 05:59 05:59 05:59 Intake Total 2310 1440 Output Total 50 Balance 2310 1390 PT 13.5 SEC (12.0-15.0) 09/03/16 14:45 INR 1.05 (0.83-1.16) 09/03/16 14:45 ICD10 Worksheet Patient Problems: Problems Problem Status Diagnosed Acute blood loss anemia Acute GI bleed Acute Orthostatic hypotension Acute Cellulitis Acute
[2016-09-05] MEDS ORDERED: fentaNYL 250 MCG/5 ML INJ ONE ×2 (12:26→13:25)
[2016-09-05] MEDS ORDERED: PROPOFOL 200 MG/20 ML VIAL ONE (12:27)
[2016-09-05] MEDS ORDERED: ROCURONIUM 100 MG/10 ML VIAL ONE (12:28)
--- NOTE | 2016-09-05 15:08 | POSTOPPROG ---
Post Op Note Date of Operation: 09/05/16 Surgeon: Tito Cortes Jewel Hole Cornerer: karen Anesthesiologist: warm Anesthesia: GET(General Endotracheal) Pre-op Diagnosis: obstructing colon cancer Post-op Diagnosis: same with perforation and abscess Indication: anemia, obstruction Procedure: laplow ant colectomy with hartmans and end colostomy/ drainage pelvic absce Findings: large cancer at pelvic reflection with abscess and perforation Inf/Abcess present in the surg proc area at time of surgery?: Yes Depth: Organ Space EBL: 50-100 Complications: 0 Drains: Vick Bailon Specimen(s): sigmoid colon
[2016-09-05] MEDS ORDERED: OXYCODONE/APAP 5/325 TAB PO PRN (15:11)
[2016-09-05] MEDS ORDERED: fentaNYL 100 MCG/2 ML INJ ONE (15:13)
[2016-09-05] MEDS: predniSONE 5 MG TAB PO SCH (16:37)
[2016-09-05 16:38] LABS: HEMATOCRIT 28.1 % (40.0-51.0); HEMOGLOBIN 8.6 g/dL (13.7-17.5)
[2016-09-05] MEDS: D5W 1/2 NS W/ 20 KCl/L 1,000 ML IV SCH (16:45)
[2016-09-05] MEDS: PANTOPRAZOLE SODIUM 40 MG in NS 100 ML IV SCH ×2 (16:50→21:47)
[2016-09-06] MEDS: D5W 1/2 NS W/ 20 KCl/L 1,000 ML IV SCH ×2 (04:45→16:12)
[2016-09-06 05:06] LABS: % IMMATURE GRANULYOCYTES 0.4 % (0.0-1.1); ABSOLUTE IMMATURE GRANULOCYTES 0.06 10^3/uL (0.00-0.10); ADD DIFF? NO; ADD MORPH? NO; ADD SCAN? NO; ATYPICAL LYMPHOCYTE FLAG 0 (0-99); FRAGMENT RBC FLAG 20 (0-99); HEMATOCRIT 23.5 % (40.0-51.0); HEMOGLOBIN 7.6 g/dL (13.7-17.5); LEFT SHIFT FLG 30 (0-99); LIPEMIA HEMOLYSIS FLAG 80 (0-99); MEAN CELL HEMOGLOBIN 27.4 pg (27.9-34.1); MEAN CELL HEMOGLOBIN CONCENTR. 32.3 g/dL (32.4-36.7); MEAN CELL VOLUME 84.8 fL (81.5-99.8); MEAN PLATELET VOLUME 9.5 fL (8.7-11.7); PLATELET CLUMPS FLAG 10 (0-99); PLATELET COUNT 306 10^3/uL (150-400); RED BLOOD CELL COUNT 2.77 10^6/uL (4.40-6.38); RED CELL DISTRIBUTION WIDTH 15.9 % (11.5-15.2)
[2016-09-06 05:21] LABS: ANION GAP 10 mEq/L (8-16); CALCIUM 8.8 mg/dL (8.5-10.4); CARBON DIOXIDE 16 mEq/l (22-31); CHLORIDE 117 mEq/L (97-110); CREATININE 2.8 mg/dL (0.7-1.3); GLOMERULAR FILTRATION RATE 21; GLUCOSE 167 mg/dL (70-100); POTASSIUM 4.5 mEq/L (3.5-5.2); SODIUM 143 mEq/L (134-144)
[2016-09-06] MEDS: ERTAPENEM 0.5 GM in NS 100 ML IV SCH (08:30)
[2016-09-06] MEDS ORDERED: ERTAPENEM 1 GM in NS 100 ML IV SCH (09:00)
[2016-09-06] MEDS: PANTOPRAZOLE SODIUM 40 MG in NS 100 ML IV SCH ×2 (09:01→20:16)
--- NOTE | 2016-09-06 09:53 | PDINTPN ---
Flame Channeler Progress Note Assessment/Plan: Assessment: #GIB due to a sigmoid mass. Post surgery with resection and colostomy. Perforation and abscess were found #CKD with a baseline creatinine of about Plan: Ertapenem Fungal cultures pending No colostomy drainage so far, 150ml out of NG He is on IV saline now and will get close attention to fluids periop due to his renal disease which is stable so far with a creatinine of 2.8 and a K of 4.5 and good u/o 09/06/16 09:55 Subjective: Minimal abdominal pain, some mild right shoulder pain, ? reason Objective: Vital Signs Temp Pulse Resp BP Pulse Ox 36.6 C 92 17 105/51 L 96 09/06/16 08:00 09/06/16 08:00 09/06/16 08:00 09/06/16 08:00 09/06/16 08:00 Microbiology 09/05/16 13:17 Gram Stain - Final Pelvis - Aspirate Laboratory Results 09/06/16 04:55 09/06/16 04:55 09/05/16 09/06/16 09/07/16 05:59 05:59 05:59 Intake Total 1440 3218 Output Total 50 1660 Balance 1390 1558 PT 13.5 SEC (12.0-15.0) 09/03/16 14:45 INR 1.05 (0.83-1.16) 09/03/16 14:45 Physical Exam - Physical Exam General Appearance: alert, no apparent distress EENT: PERRL/EOMI Neck: non-tender Respiratory: lungs clear Cardiac/Chest: regular rate, rhythm Abdomen: soft Back: Normal inspection Skin: warm/dry Lymphatic: no adenopathy Extremities: non-tender, No pedal edema Neuro/Psych: alert ICD10 Worksheet Patient Problems: Problems Problem Status Diagnosed Acute blood loss anemia Acute GI bleed Acute Orthostatic hypotension Acute Cellulitis Acute
--- NOTE | 2016-09-06 10:56 | SOAPPROG ---
SOAP Progress Note Assessment/Plan: Assessment/Plan -89yo M POD#1 s/p Matt's for low, perforated rectosigmoid Ca - VSS, HDS overnight. Pain minimal to none this AM - Hb down to <8, will need recheck later today to ensure doesnt need transfusion but EBL intra-op was minimal - JOSIANE serosang, will cont to bulb suction - OK for clears today, ostomy beefy red with some bloody sweat in appliance. Await more robust ostomy output before advancing diet. 09/06/16 10:54 Subjective: Denies pain, alert and oriented. Objective: Vital Signs Temp Pulse Resp BP Pulse Ox 36.6 C 92 17 105/51 L 96 09/06/16 08:00 09/06/16 08:00 09/06/16 08:00 09/06/16 08:00 09/06/16 08:00 Microbiology 09/05/16 13:17 Gram Stain - Final Pelvis - Aspirate Laboratory Results 09/06/16 04:55 09/06/16 04:55 09/05/16 09/06/16 09/07/16 05:59 05:59 05:59 Intake Total 1440 3218 Output Total 50 1660 Balance 1390 1558 PT 13.5 SEC (12.0-15.0) 09/03/16 14:45 INR 1.05 (0.83-1.16) 09/03/16 14:45 ICD10 Worksheet Patient Problems: Problems Problem Status Diagnosed Acute blood loss anemia Acute GI bleed Acute Orthostatic hypotension Acute Cellulitis Acute
[2016-09-06] MEDS: ACETAMINOPHEN 325 MG TAB PO PRN (11:30)
[2016-09-06] MEDS: predniSONE 5 MG TAB PO SCH (11:50)
[2016-09-06 12:36] LABS: HEMATOCRIT 24.4 % (40.0-51.0); HEMOGLOBIN 7.6 g/dL (13.7-17.5)
--- NOTE | 2016-09-06 15:00 | HOSPPROG ---
Hospitalist Progress Note Assessment/Plan: #Acute blood loss anemia -due to hemaochezia/melena -EGD unrevealing. Colonoscopy showed sigmoid mass -H/H stable. serial CBC #Perforated rectosigmoid mass with abscess -s/p Matt POD #1 -gram negative dyllan on culture -cont Ertapenem #LGIB -colonoscopy by Dr. Almazan showed sigmoid mass. -H/H stable. Monitor closely, transfuse if Hb <7 #Gout: cont pred #CKD: Cr at baseline -monitor fluid status closely #Diet: clears #DVT px: SCDs #Disp: warrants ICU admission for serial abd checks, H/H Subjective: denies abd pain Objective: Vital Signs Temp Pulse Resp BP Pulse Ox 36.7 C 99 12 112/45 L 77 L 09/06/16 12:00 09/06/16 12:00 09/06/16 12:00 09/06/16 12:00 09/06/16 12:30 Microbiology 09/04/16 02:41 Stool Culture - Final Stool 09/05/16 13:17 Gram Stain - Final Pelvis - Aspirate Laboratory Results 09/06/16 12:10 09/06/16 04:55 09/05/16 09/06/16 09/07/16 05:59 05:59 05:59 Intake Total 1440 3218 Output Total 50 1660 Balance 1390 1558 PT 13.5 SEC (12.0-15.0) 09/03/16 14:45 INR 1.05 (0.83-1.16) 09/03/16 14:45 - Physical Exam Constitutional: no apparent distress Eyes: PERRL Ears, Nose, Mouth, Throat: moist mucous membranes Cardiovascular: regular rate and rhythym, no murmur, rub, or gallop Respiratory: no respiratory distress Gastrointestinal: other (ostomy with pink tissue, sanginous drainage. JOSIANE in place. Min TTP) Genitourinary: no bladder fullness Skin: warm Musculoskeletal: full muscle strength Neurologic: AAOx3 Psychiatric: interacting appropriately ICD10 Worksheet Patient Problems: Problems Problem Status Diagnosed Acute blood loss anemia Acute GI bleed Acute Orthostatic hypotension Acute Cellulitis Acute
[2016-09-06] MEDS ORDERED: FUROSEMIDE 20 MG/2 ML VIAL IVP ONE (15:26)
[2016-09-07] MEDS: D5W 1/2 NS W/ 20 KCl/L 1,000 ML IV SCH ×2 (02:18→17:19)
[2016-09-07 06:01] LABS: % IMMATURE GRANULYOCYTES 0.7 % (0.0-1.1); ABSOLUTE IMMATURE GRANULOCYTES 0.11 10^3/uL (0.00-0.10); ADD DIFF? NO; ADD MORPH? YES; ADD SCAN? NO; ATYPICAL LYMPHOCYTE FLAG 0 (0-99); FRAGMENT RBC FLAG 10 (0-99); HEMATOCRIT 20.2 % (40.0-51.0); LEFT SHIFT FLG 0 (0-99); LIPEMIA HEMOLYSIS FLAG 80 (0-99); MEAN CELL HEMOGLOBIN 27.1 pg (27.9-34.1); MEAN CELL HEMOGLOBIN CONCENTR. 32.2 g/dL (32.4-36.7); MEAN CELL VOLUME 84.2 fL (81.5-99.8); MEAN PLATELET VOLUME 9.5 fL (8.7-11.7); PLATELET CLUMPS FLAG 0 (0-99); PLATELET COUNT 250 10^3/uL (150-400); RED CELL DISTRIBUTION WIDTH 16.2 % (11.5-15.2)
[2016-09-07 06:17] LABS: HEMOGLOBIN 6.5 g/dL (13.7-17.5)
[2016-09-07 06:21] LABS: ANION GAP 8 mEq/L (8-16); CARBON DIOXIDE 17 mEq/l (22-31); CHLORIDE 116 mEq/L (97-110); CREATININE 3.5 mg/dL (0.7-1.3); GLOMERULAR FILTRATION RATE 17; GLUCOSE 101 mg/dL (70-100); POTASSIUM 5.3 mEq/L (3.5-5.2); SODIUM 141 mEq/L (134-144)
[2016-09-07 06:45] LABS: PLATELET ESTIMATE ADEQUATE (ADEQ)
[2016-09-07 06:47] LABS: HYPOCHROMIA 2+
[2016-09-07 06:48] LABS: MICROCYTES 1+; POLYCHROMASIA 1+
--- NOTE | 2016-09-07 09:59 | SOAPPROG ---
SOMADI Progress Note Assessment/Plan: Assessment/Plan -89yo M POD#2 s/p Matt's for low, perforated rectosigmoid Ca - Hb down to 6.5 today, receiving transfusion. Does not appear to be currently bleeding and Hb drift likely not 2/2 acute bleed - Abdomen soft, Incision open and c/d/i/. Stoma beefy red with some sweat in appliance. will await more robust ostomy output before advancing diet - Josiane serosang, will monitor today, likely d/c tomorrow. - Path pending 09/06/16 10:54 09/07/16 09:57 Subjective: Doing well, denies pain. Wants to go home Objective: Vital Signs Temp Pulse Resp BP Pulse Ox 36.3 C 85 22 H 110/49 L 98 09/07/16 08:00 09/07/16 08:00 09/07/16 08:00 09/07/16 08:00 09/07/16 08:00 Microbiology 09/05/16 13:17 Gram Stain - Final Pelvis - Aspirate 09/04/16 02:41 Stool Culture - Final Stool Laboratory Results 09/07/16 05:57 09/07/16 05:57 09/06/16 09/07/16 09/08/16 05:59 05:59 05:59 Intake Total 3218 1603 Output Total 1660 925 Balance 1558 678 PT 13.5 SEC (12.0-15.0) 09/03/16 14:45 INR 1.05 (0.83-1.16) 09/03/16 14:45 Physical Exam - Physical Exam General Appearance: alert, no apparent distress Respiratory: chest non-tender, lungs clear Cardiac/Chest: regular rate, rhythm Abdomen: other (soft, Incision c/d/i, Stoma beefy red with some sweat in appliance. JOSIANE serosang) ICD10 Worksheet Patient Problems: Problems Problem Status Diagnosed Acute blood loss anemia Acute GI bleed Acute Orthostatic hypotension Acute Cellulitis Acute
[2016-09-07] MEDS: ACETAMINOPHEN 325 MG TAB PO PRN (10:26)
[2016-09-07] MEDS: predniSONE 5 MG TAB PO SCH (10:27)
[2016-09-07] MEDS ORDERED: ALTEPLASE 2 MG VIAL IVP PRN (10:40)
[2016-09-07] MEDS: PANTOPRAZOLE SODIUM 40 MG in NS 100 ML IV SCH ×2 (12:02→20:33)
[2016-09-07] MEDS: ERTAPENEM 0.5 GM in NS 100 ML IV SCH (12:41)
--- NOTE | 2016-09-07 12:49 | HOSPPROG ---
Hospitalist Progress Note Assessment/Plan: #Acute blood loss anemia -due to hemaochezia/melena. Blood loss from surgery -Hb < 7 this morning. Getting 1 unit RBC #Perforated rectosigmoid mass with abscess -s/p Matt POD #2 -Klebsiella, Strep intermedius on culture; awaiting sensitivities. Blood cx NGTD -cont Ertapenem -pathology pending #LGIB -colonoscopy by Dr. Almazan showed sigmoid mass. -H/H stable. Monitor closely, transfuse if Hb <7 #Gout: cont pred #Acute on CKD -Cr 3.5 today which was of concern given acute bleed, hypotension -K 5.3, will repeat this after. Monitor fluid status closely #Diet: clears #DVT px: SCDs #Disp: warrants ICU admission for serial abd checks, H/H Subjective: feels very weak today Objective: Vital Signs Temp Pulse Resp BP Pulse Ox 36.3 C 85 22 H 110/49 L 98 09/07/16 08:00 09/07/16 08:00 09/07/16 08:00 09/07/16 08:00 09/07/16 08:00 Microbiology 09/05/16 13:17 Gram Stain - Final Pelvis - Aspirate 09/04/16 02:41 Stool Culture - Final Stool Laboratory Results 09/07/16 05:57 09/07/16 05:57 09/06/16 09/07/16 09/08/16 05:59 05:59 05:59 Intake Total 3218 1603 Output Total 1660 925 Balance 1558 678 PT 13.5 SEC (12.0-15.0) 09/03/16 14:45 INR 1.05 (0.83-1.16) 09/03/16 14:45 - Physical Exam Constitutional: other (very tired-appearing today) Eyes: PERRL, pale conjunctiva Ears, Nose, Mouth, Throat: moist mucous membranes, hearing normal Cardiovascular: regular rate and rhythym, no murmur, rub, or gallop Respiratory: no respiratory distress, no rales or rhonchi Gastrointestinal: other (ostomy with pink tissue; sanginous drainage. surgical site C/D/I) Genitourinary: no bladder fullness Skin: warm Musculoskeletal: full muscle strength Neurologic: AAOx3 Psychiatric: interacting appropriately ICD10 Worksheet Patient Problems: Problems Problem Status Diagnosed Acute blood loss anemia Acute GI bleed Acute Orthostatic hypotension Acute Cellulitis Acute
--- NOTE | 2016-09-07 12:57 | PDINTPN ---
Medical Payment Poster Progress Note Assessment/Plan: Assessment: #GIB due to a sigmoid mass. Post surgery with resection and colostomy. Perforation and abscess were found. Minimal abdominal pain. #CKD with a baseline creatinine of about 2.5, now 3.5 Plan: Ertapenem Fungal cultures pending No colostomy drainage so far, 150ml out of NG He is on IV saline now and will get close attention to fluids periop due to his renal disease which is stable so far with a creatinine of 2.8 and a K of 4.5 and good u/o Check weight 09/07/16 12:57 Subjective: Slightly more abdominal pain today Objective: Vital Signs Temp Pulse Resp BP Pulse Ox 36.3 C 85 22 H 110/49 L 98 09/07/16 08:00 09/07/16 08:00 09/07/16 08:00 09/07/16 08:00 09/07/16 08:00 Microbiology 09/05/16 13:17 Gram Stain - Final Pelvis - Aspirate 09/04/16 02:41 Stool Culture - Final Stool Laboratory Results 09/07/16 05:57 09/07/16 05:57 09/06/16 09/07/16 09/08/16 05:59 05:59 05:59 Intake Total 3218 1603 Output Total 1660 925 Balance 1558 678 PT 13.5 SEC (12.0-15.0) 09/03/16 14:45 INR 1.05 (0.83-1.16) 09/03/16 14:45 Physical Exam - Physical Exam General Appearance: no apparent distress EENT: normal ENT inspection Neck: non-tender Respiratory: lungs clear Cardiac/Chest: regular rate, rhythm Abdomen: soft Back: Normal inspection Skin: warm/dry Lymphatic: no adenopathy Extremities: non-tender, No pedal edema Neuro/Psych: alert ICD10 Worksheet Patient Problems: Problems Problem Status Diagnosed Acute blood loss anemia Acute GI bleed Acute Orthostatic hypotension Acute Cellulitis Acute
--- NOTE | 2016-09-07 13:51 | IR ---
PICC Clinical Indication: Abscess and GI bleeding central venous access. Procedures Performed: 1. Ultrasound-guided puncture of the basilic vein. 2. Microwire was passed under fluoroscopic guidance and serially exchanged for the peel-away. 3. Measuring wire was used to estimate the length of the PICC, and it was trimmed at the 42 cm pham. 4. The PICC was advanced to the SVC/right atrial junction over the measuring wire. The measuring wire and dilator were removed. EBL less than 10 mL. Specimens: None. Fluoroscopy Time: 0.2 minutes. 2.2 mGy Operative Report: After obtaining informed consent and performing a formal timeout, the right arm was prepped and draped. 1% lidocaine local field block was achieved. The basilic vein was punctured unde r direct ultrasound visualization after deeming the vessel patent. Microwire was passed under fluoros copic guidance and serially exchanged for the peel-away dilator. The measuring wire was used to estim ate the length of the PICC. The PICC was trimmed to 42 cm. The PICC was advanced over the measuring w roby to the SVC/right atrial junction. The measuring wire and peel-away were removed. The PICC was sec ured and dressed with sterile gauze dressing. Plan: Double lumen PICC ready for use. Informed consent: Obtained from the patient. Risks and benefits were discussed. Crosscutting Measure: Patient's current list of medications including all known prescriptions, over- the-counters, herbals, and vitamin/mineral/dietary supplements are reviewed. Medications' name, dosa ge, frequency, and route of administration are confirmed. Prophylactic Antibiotic: Cefazolin was not ordered and administered for antimicrobial prophylaxis be cause it was not medically necessary. VTE Prophylaxis: There is not an order for VTE prophylaxis to be given within 24 hours of the proced ure end time. VTE prophylaxis was not given because it was not medically necessary. Technique: Patient was placed in supine position. A "timeout" procedure was performed to identify t he correct patient and the correct procedure. 1% Xylocaine was used for local anesthetic. All redding ents of maximal sterile barrier technique including cap, mask, sterile gown, sterile gloves, large st erile sheet, hand hygiene, and 2% chlorhexidine for cutaneous antisepsis, followed. Ultrasound evaluation of potential access site was performed. After successfully identifying a patent vessel, ultrasound guidance was used to puncture the vein. A permanent recording was created for the patient's record. When ultrasound is used, sterile gel and probe covers are used. Rik Baldwin M.D., [facility]
[2016-09-07 14:26] LABS: HEMATOCRIT 25.3 % (40.0-51.0); HEMOGLOBIN 8.5 g/dL (13.7-17.5)
[2016-09-07 14:37] LABS: ANION GAP 11 mEq/L (8-16); CALCIUM 9.1 mg/dL (8.5-10.4); CARBON DIOXIDE 15 mEq/l (22-31); CHLORIDE 114 mEq/L (97-110); CREATININE 3.5 mg/dL (0.7-1.3); GLOMERULAR FILTRATION RATE 17; GLUCOSE 82 mg/dL (70-100); MAGNESIUM 1.5 mg/dL (1.6-2.3); POTASSIUM 4.6 mEq/L (3.5-5.2); SODIUM 140 mEq/L (134-144)
[2016-09-08] MEDS: D5W 1/2 NS W/ 20 KCl/L 1,000 ML IV SCH ×2 (03:27→16:52)
[2016-09-08 05:50] LABS: % IMMATURE GRANULYOCYTES 0.7 % (0.0-1.1); ADD DIFF? NO; ADD MORPH? NO; ADD SCAN? NO; ATYPICAL LYMPHOCYTE FLAG 0 (0-99); FRAGMENT RBC FLAG 20 (0-99); HEMATOCRIT 25.2 % (40.0-51.0); HEMOGLOBIN 8.5 g/dL (13.7-17.5); LEFT SHIFT FLG 0 (0-99); LIPEMIA HEMOLYSIS FLAG 80 (0-99); MEAN CELL HEMOGLOBIN 28.4 pg (27.9-34.1); MEAN CELL HEMOGLOBIN CONCENTR. 33.7 g/dL (32.4-36.7); MEAN CELL VOLUME 84.3 fL (81.5-99.8); MEAN PLATELET VOLUME 9.1 fL (8.7-11.7); PLATELET CLUMPS FLAG 10 (0-99); PLATELET COUNT 263 10^3/uL (150-400); RED BLOOD CELL COUNT 2.99 10^6/uL (4.40-6.38); RED CELL DISTRIBUTION WIDTH 16.5 % (11.5-15.2)
[2016-09-08 06:02] LABS: ANION GAP 7 mEq/L (8-16); CALCIUM 8.8 mg/dL (8.5-10.4); CARBON DIOXIDE 17 mEq/l (22-31); CHLORIDE 114 mEq/L (97-110); CREATININE 3.6 mg/dL (0.7-1.3); GLOMERULAR FILTRATION RATE 16; GLUCOSE 83 mg/dL (70-100); POTASSIUM 5.1 mEq/L (3.5-5.2); SODIUM 138 mEq/L (134-144)
[2016-09-08] MEDS: ACETAMINOPHEN 325 MG TAB PO PRN ×2 (08:50→19:50)
[2016-09-08] MEDS: ERTAPENEM 0.5 GM in NS 100 ML IV SCH (08:50)
[2016-09-08] MEDS: PANTOPRAZOLE SODIUM 40 MG in NS 100 ML IV SCH ×2 (08:50→20:14)
[2016-09-08] MEDS: predniSONE 5 MG TAB PO SCH (08:51)
[2016-09-08 10:05] LABS: COLOR PALE YELLOW; LEUKOCYTE ESTERASE,URINE NEGATIVE (NEGATIVE); NITRITE,URINE NEGATIVE (NEGATIVE)
[2016-09-08 10:13] LABS: MUCUS TRACE /lpf (NONE-1+)
--- NOTE | 2016-09-08 10:18 | HOSPPROG ---
Hospitalist Progress Note Assessment/Plan: Assessment: 89 yo M p/w acute perforated rectosigmoid mass w/ polymicrobial abscess c/b acute blood loss anemia, lower GI bleed, ASHA on CKD Plan: # Acute blood loss anemia. Anticipated post-op, evidenced by Hgb 8.5 w/ visible blood loss in ostomy bag - s/p 1u PRBC - cont to monitor Hgb # Perforated rectosigmoid mass with polymicrobial abscess. POA, POD#3 Matt - Cx w/ Klebsiella, Strep intermedius, sensitivities pending - cont Ertapenem, either cont as outpt for total 2 weeks vs. PO pending sensitivity above - pathology pending - d/w Dr. Hurtado, plan to adv diet today and gauge whether ostomy output thickens - cont drain, monitoring outpt # Lower GI Bleed. Acute, in setting of mass - colonoscopy by Dr. Almazan showed sigmoid mass. - H/H stable. Monitor closely, transfuse if Hb <7 # Gout. Chronic, no e/o acute flare - given recent surgery and potential impairment in healing, stop prednisone # ASHA on CKD Stage III. Acute, new problem, further w/u. 2/2 hypovolemia in setting of above, baseline Cr 2-2.5 - worsening Cr level of concern for possible ongoing hypovolemia, get FeNa and repeat UA - DC head cathether, but patient getting to restroom so monitor I/O and repeat sCr in AM - EKG w/ V-paced rhythm (personally interpreted), cont on tele given hyperkalemia Diet. Clears, advance per Dr. Hennessy Prophylaxis. Moderate risk patient, heparin subcu Code. Full Disposition. Anticipated discharge is 1/3 versus 1/4, pending stabilization of the above, case management working with family to determine home versus [facility] facility needs Subjective: Loose fluid from ostomy bag, limited mobility Objective: Vital Signs Temp Pulse Resp BP Pulse Ox 36.4 C 86 21 H 125/76 H 98 09/08/16 07:32 09/08/16 07:32 09/08/16 07:32 09/08/16 07:32 09/08/16 07:32 Microbiology 09/05/16 13:17 Gram Stain - Final Pelvis - Aspirate Laboratory Results 09/08/16 05:40 09/08/16 05:40 09/07/16 09/08/16 09/09/16 05:59 05:59 05:59 Intake Total 1603 2190 Output Total 925 1485 Balance 678 705 PT 13.5 SEC (12.0-15.0) 09/03/16 14:45 INR 1.05 (0.83-1.16) 09/03/16 14:45 - Physical Exam Constitutional: no apparent distress, not in pain, chronically ill appearing, No uncomfortable Cardiovascular: systolic murmur (1 6 at sternum), No irregularly irregular, No tachycardia, No edema Respiratory: no respiratory distress, no rales or rhonchi, clear to auscultation Gastrointestinal: normoactive bowel sounds, other (Drain in right, ostomy bag on left, central incision site with susan, minimal tenderness), No guarding, No distension Skin: no rashes or abrasions, no fluctuance, no induration Neurologic: AAOx3, sensation intact bilaterally, No facial droop Psychiatric: interacting appropriately, not anxious, not encephalopathic, thought process linear ICD10 Worksheet Patient Problems: Problems Problem Status Diagnosed Acute blood loss anemia Acute GI bleed Acute Orthostatic hypotension Acute Cellulitis Acute
--- NOTE | 2016-09-08 10:53 | SOAPPROG ---
SOAP Progress Note Assessment/Plan: Assessment/Plan -89yo M POD#3 s/p Matt's for low, perforated rectosigmoid Ca - Hb stable at 8 s/p transfusion, vitals remain stable. - pain appropriately controlled - Abdomen soft, incision susan c/d/i - Stoma beefy red, some sweat in bag. Given appearance of abdomen and no nausea will attempt diet advancement today - Path pending 09/06/16 10:54 09/07/16 09:57 09/08/16 10:51 09/08/16 10:53 Subjective: Doing well, c/o incisional pain only. Objective: Vital Signs Temp Pulse Resp BP Pulse Ox 36.4 C 86 21 H 125/76 H 98 09/08/16 07:32 09/08/16 07:32 09/08/16 07:32 09/08/16 07:32 09/08/16 07:32 Microbiology 09/05/16 13:17 Gram Stain - Final Pelvis - Aspirate Anaerobic Culture - Final Klebsiella Pneumoniae Ssp Pneu Escherichia Coli Laboratory Results 09/08/16 05:40 09/08/16 05:40 09/07/16 09/08/16 09/09/16 05:59 05:59 05:59 Intake Total 1603 2190 Output Total 925 1485 Balance 678 705 PT 13.5 SEC (12.0-15.0) 09/03/16 14:45 INR 1.05 (0.83-1.16) 09/03/16 14:45 ICD10 Worksheet Patient Problems: Problems Problem Status Diagnosed Acute blood loss anemia Acute GI bleed Acute Orthostatic hypotension Acute Cellulitis Acute
--- NOTE | 2016-09-08 13:07 | PDINTPN ---
Remotely Piloted Vehicle Controller Progress Note Assessment/Plan: Assessment: #GIB due to a sigmoid mass. Post surgery with resection and colostomy. Perforation and abscess were found. Minimal abdominal pain. #CKD with a baseline creatinine of about 2.5, now 3.6 #Anemia Plan: Ertapenem Fungal cultures pending No colostomy drainage so far, He is on IV saline now and will get close attention to fluids periop due to his renal disease which is stable so far with a creatinine of 2.8 and a K of 4.5 and good u/o Weight and I/O relatively stable from admission 09/08/16 13:05 Subjective: Some abdominal pain as expected Objective: Vital Signs Temp Pulse Resp BP Pulse Ox 36.4 C 86 21 H 125/76 H 98 09/08/16 07:32 09/08/16 07:32 09/08/16 07:32 09/08/16 07:32 09/08/16 07:32 Microbiology 09/05/16 13:17 Gram Stain - Final Pelvis - Aspirate Anaerobic Culture - Final Klebsiella Pneumoniae Ssp Pneu Escherichia Coli Laboratory Results 09/08/16 05:40 09/08/16 05:40 09/07/16 09/08/16 09/09/16 05:59 05:59 05:59 Intake Total 1603 2190 Output Total 925 1485 120 Balance 678 705 -120 PT 13.5 SEC (12.0-15.0) 09/03/16 14:45 INR 1.05 (0.83-1.16) 09/03/16 14:45 Physical Exam - Physical Exam General Appearance: mild distress EENT: normal ENT inspection Neck: non-tender Respiratory: lungs clear Cardiac/Chest: regular rate, rhythm Abdomen: soft Back: Normal inspection Skin: warm/dry Lymphatic: no adenopathy Extremities: non-tender, No pedal edema Neuro/Psych: alert ICD10 Worksheet Patient Problems: Problems Problem Status Diagnosed Acute blood loss anemia Acute GI bleed Acute Orthostatic hypotension Acute Cellulitis Acute
[2016-09-09] MEDS: D5W 1/2 NS W/ 20 KCl/L 1,000 ML IV SCH (03:31)
[2016-09-09 03:42] LABS: % IMMATURE GRANULYOCYTES 0.8 % (0.0-1.1); ADD DIFF? NO; ADD MORPH? NO; ADD SCAN? NO; ATYPICAL LYMPHOCYTE FLAG 0 (0-99); FRAGMENT RBC FLAG 20 (0-99); HEMATOCRIT 25.4 % (40.0-51.0); HEMOGLOBIN 8.2 g/dL (13.7-17.5); LEFT SHIFT FLG 0 (0-99); LIPEMIA HEMOLYSIS FLAG 80 (0-99); MEAN CELL HEMOGLOBIN 27.3 pg (27.9-34.1); MEAN CELL HEMOGLOBIN CONCENTR. 32.3 g/dL (32.4-36.7); MEAN CELL VOLUME 84.7 fL (81.5-99.8); MEAN PLATELET VOLUME 8.9 fL (8.7-11.7); PLATELET CLUMPS FLAG 0 (0-99); PLATELET COUNT 265 10^3/uL (150-400); RED CELL DISTRIBUTION WIDTH 16.5 % (11.5-15.2)
[2016-09-09 04:17] LABS: ANION GAP 6 mEq/L (8-16); CALCIUM 8.6 mg/dL (8.5-10.4); CARBON DIOXIDE 18 mEq/l (22-31); CHLORIDE 115 mEq/L (97-110); CREATININE 3.3 mg/dL (0.7-1.3); GLOMERULAR FILTRATION RATE 18; GLUCOSE 86 mg/dL (70-100); POTASSIUM 5.6 mEq/L (3.5-5.2); SODIUM 139 mEq/L (134-144)
[2016-09-09] MEDS: ACETAMINOPHEN 325 MG TAB PO PRN (06:17)
--- NOTE | 2016-09-09 09:15 | HOSPPROG ---
Hospitalist Progress Note Assessment/Plan: Mr Palomares is 89 yo M p/w acute perforated rectosigmoid mass w/ polymicrobial abscess c/b acute blood loss anemia, lower GI bleed, ASHA on CKD. Today is my first encounter with the patient/chart reviewed. #. GI bleed due to a sigmoid mass - status post resection and colostomy - perforation and abscess were found - was given a unit of packed red blood cells hemoglobin is 8.2 hematocrit is 25.4 # Acute blood loss anemia. - s/p 1u PRBC - cont to monitor Hgb # Perforated rectosigmoid mass with polymicrobial abscess. POA, -POD#4 Matt - Cx w/ Klebsiella an E coli - on ertapenem - pathology pending - will likely need longer treatment with IV abx therapy/ will ask ID to get involved #. Acute Kidney injury on chronic kidney disease -baseline creat is 2.1/ is trending down and now is 3.3/will dc any nephrotoxic agents -nephrology to get involved #. 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 CKD stage IV # Gout. Chronic, no e/o acute flare - given recent surgery and potential impairment in healing, stop prednisone Diet. regular Prophylaxis. Moderate risk patient, heparin subcu Code. Full Disposition. pending/ will need SNF Plan: change fluids to normal saline, give one dose of kayexelate, repeat labs in a.m., get nephrology and ID's involvement (appreciate Dr Vieira and Dr Veras) Subjective: Kapil is hungry/ has pain at the colostomy surgical site. Objective: Vital Signs Temp Pulse Resp BP Pulse Ox 36.3 C 74 18 138/70 H 94 09/09/16 08:00 09/09/16 08:00 09/09/16 08:00 09/09/16 08:00 09/09/16 08:00 Microbiology 09/03/16 15:25 Blood Culture - Final Blood 09/05/16 13:17 Gram Stain - Final Pelvis - Aspirate Anaerobic Culture - Final Klebsiella Pneumoniae Ssp Pneu Escherichia Coli Laboratory Results 09/09/16 03:30 09/09/16 03:30 09/08/16 09/09/16 09/10/16 05:59 05:59 05:59 Intake Total 2190 1641 Output Total 1485 1375 Balance 705 266 PT 13.5 SEC (12.0-15.0) 09/03/16 14:45 INR 1.05 (0.83-1.16) 09/03/16 14:45 - Physical Exam Constitutional: chronically ill appearing, uncomfortable Eyes: PERRL Ears, Nose, Mouth, Throat: hearing normal Cardiovascular: regular rate and rhythym Respiratory: no respiratory distress, reduced air movement (bibasilar) Gastrointestinal: normoactive bowel sounds, other (colostomy site with redness, no stool, no bleeding) Neurologic: AAOx3, other (sleepy and slow to answer, but is oriented to person, place and time) Psychiatric: interacting appropriately, not anxious ICD10 Worksheet Patient Problems: Problems Problem Status Diagnosed Acute blood loss anemia Acute GI bleed Acute Orthostatic hypotension Acute Cellulitis Acute
[2016-09-09] MEDS: PANTOPRAZOLE SODIUM 40 MG in NS 100 ML IV SCH ×2 (09:30→20:26)
[2016-09-09] MEDS ORDERED: SODIUM POLY SULF 15 GM/60 ML BOTTLE PO ONE (09:33)
[2016-09-09] MEDS: ERTAPENEM 0.5 GM in NS 100 ML IV SCH (10:02)
[2016-09-09 11:52] LABS: POTASSIUM 5.3 mEq/L (3.5-5.2)
--- NOTE | 2016-09-09 12:40 | PDIAF ---
- Diagnosis Diagnosis: Polymicrobial pelvic abscess Code Status: Full Code - Medication Management Discharge Medications: Medications to Continue on Transfer Cholecalciferol Vit D3 [Vitamin D3 (*)] 2,000 units PO DAILY 09/03/16 [Last Taken 09/03/16] Ferrous Sulfate [Ferrous Sulf 325 MG (*)] 325 mg PO Q2D 09/03/16 [Last Taken ] Furosemide [Lasix 20 MG (*)] 20 mg PO DAILY 09/03/16 [Last Taken 09/03/16] Omeprazole [Prilosec 20 mg] 20 mg PO DAILY PRN 09/03/16 [Last Taken 09/03/16] Lisinopril [Zestril 5 mg (*)] 5 mg PO DAILY 09/04/16 [Last Taken 09/03/16] predniSONE 5 mg PO DAILY 09/04/16 [Last Taken 09/03/16] Chcf Antibiotic Stop Date: 10/08/16 Discharge Medications: Refer to the Discharge Home Medication list for PRN reason. PICC Care - Routine: Yes - Labs/Radiology CBC Date: 09/15/16 (q mondays) CMP Date: 09/15/16 (q mondays) CRP Date: 09/15/16 (one time on 09/15/16) Call or Fax Lab and Imaging Results to: to Dr. Veras [phone]. - Follow Up Care Current Providers and Referrals: Gaudencio Ruiz MD [Primary Care Provider] - As per Instructions Jennifer Veras MD [Medical Doctor] - 09/17/16 9:00 am (f/u with Dr. Veras INfectious Disease--check in time is 8:40am. )
--- NOTE | 2016-09-09 13:07 | GCON ---
[f rep st] CONSULTATION INFECTIOUS DISEASE CONSULTATION DATE OF CONSULTATION: 09/09/2016 REFERRING PHYSICIAN: Wendie Paiz NP REASON FOR CONSULTATION: Pelvic abscess for further evaluation and management. CHIEF COMPLAINT: Weakness and blackish stools. HISTORY OF PRESENTING ILLNESS: This is an 89-year-old male with a past medical history sig nificant for chronic kidney disease, hypertension, complete heart block, gout on low dose prednisone, who was admitted on September 03 after complaints of malaise and dark tarry stools, followed by brigh t red blood per rectum several days prior to his admission. He underwent an EGD by Dr. Almazan on the , which did not locate an ulcer, and then subsequently underwent a colonoscopy on September 04. During that procedure a large apple-core lesion was noted in the rectosigmoid region. The scope coul d not be passed any further, and patient was set up for surgery. He underwent surgery on September 05 , where he underwent a lap low anterior colectomy with a Matt's and end colostomy. A perforatio n and abscess were noted, and the pelvic abscess was washed out. Cultures were sent, and he is growi ng out Klebsiella pneumoniae and E coli. He has been on Invanz therapy since September 06. His white blood cell count was elevated at the time of admission, but peaked at around 16 on September 06, and is now steadily improving down to 12.7, with an ongoing left shift. He continues to have a JOSIANE drain in place, with serous drainage noted within, and he has been afebrile. Infectious Disease is now con sulted for further evaluation and opinion regarding the above. REVIEW OF SYSTEMS: GENERAL: Denied any fever, shaking chills. HEAD: No headaches. EYES: No cutler ge in vision. ENT: No sore throat, difficulty swallowing, ear pain or ear drainage. CARDIOVASCULAR : Denies any chest pain or rapid heartbeat. RESPIRATORY: Denies any shortness of breath. He occas ionally does cough up some phlegm, which is chronic in nature. ABDOMEN: Denies any nausea, vomiting . He does have some mild abdominal soreness, and he is not sure how much output has been coming out of his colostomy. : Denies any dysuria. BACK: Denies any back pain or flank pain. EXTREMITIES: No new swelling of the lower extremities. MUSCULOSKELETAL: Denies any joint pain or muscle aches . SKIN: Denies any rashes or open wounds. Rest of 10 point review of systems essentially negative except for above. PAST MEDICAL HISTORY: Significant for hypertension, chronic kidney disease, gout, complete heart blo ck status post permanent pacemaker, upper extremity DVT, history of iron-deficiency anemia. PAST SURGICAL HISTORY: Significant for inguinal hernia repair, tonsillectomy, permanent pacemaker pl acement. ALLERGIES: No known drug allergies. SOCIAL HISTORY: Drinks about 2 beers per day. Denies any tobacco use. He is , he has 2 chil dren. FAMILY HISTORY: His parents are . MEDICATIONS: As per NOV. PHYSICAL EXAMINATION: VITAL SIGNS: Temperature current 36.3, pulse 74, blood pressure 138/70, satur ations are 94% on room air, respiratory rate is 18. GENERAL: Patient is resting in the chair, in no acute respiratory distress. Awake, alert, and oriented x3. HEENT: Head is normocephalic, atraumat ic. Pupils are equal, round, reactive to light. No conjunctival injection. No petechiae noted. Or opharynx is clear. There is no posterior pharyngeal erythema or thrush. CARDIOVASCULAR: S1, S2. R egular rate and rhythm. No murmurs appreciated. RESPIRATORY: Clear to auscultate bilaterally. No rhonchi or rales appreciated. ABDOMEN: Nondistended. Bowel sounds are appreciated. He has a lower midline incision site noted with susan in place. There is mild bleeding at the lower pole of his incision site. JOSIANE drain is located in the right lower abdomen, with serous drainage noted. A colost johanna is noted on the left abdomen, and the stump appears pink. EXTREMITIES: No lower extremity edema . MUSCULOSKELETAL: No obvious joint effusions or pain on palpation of the joints. SKIN: No obviou s rashes. LABS: White blood cell count is 12.7, hemoglobin 8.2, platelets are 265, neutrophil count 76%. Chem istry is 139, potassium 5.6, chloride is 115, bicarb is 18, BUN is 48, creatinine 3.3. LFTs done at the time of admission are within the normal range. Urinalysis, urine WBCs were 3-5 on admission, uri ne RBCs were 5-10 on admission, 2+ blood, negative nitrites, negative leuk esterase. Stool occult bl ood was positive. C difficile testing was negative on August 26. Blood cultures x2 sets on admiss ion were no growth to date. Stool culture was negative. Pelvis aspirate of the abscess showed Klebs iella pneumonia and E coli. ASSESSMENT: Polymicrobial pelvic abscess secondary to perforation of the rectosigmoid colon with mas s. Status post colectomy, with colostomy and washout of the abscess. PLAN: Patient is currently on renally dosed Invanz for the above polymicrobial pelvic abscess. He i s tolerating this regimen without difficulty at present. He has a PICC line in place. White blood c ell count is still elevated, but trending down. He will likely need between 2 and 4 weeks to comple te therapy for the above. Await operative note to ascertain details of his surgery. The above plan was explained to the patient and family members in detail. Will work on transfer summary and help s et up followup, as discharge is anticipated in the next 2 days. I thank you very much for allowing me this opportunity to care for your patient in consultation. /[id number]/MODL
--- NOTE | 2016-09-09 13:46 | GCON ---
[f rep st] CONSULTATION DATE OF CONSULTATION: 09/09/2016 REASON FOR CONSULTATION: Acute on chronic renal failure. ASSESSMENT: Acute renal failure, likely acute tubular necrosis. RECOMMENDATIONS: 1. Continue current IV fluid. 2. Potassium restrict diet. 3. Discontinued potassium-containing IV fluid as you have done and consider increased rate to avoid prerenal azotemia. 4. Avoid angiotensin-converting enzyme inhibitor as you are doing. 5. Avoid nonsteroidals and IV contrast. HISTORY: The patient is an 89-year-old gentleman with stage 4 chronic kidney disease and history of hypertension and complete heart block who presents to the emergency room with dark, tarry stool for t he last several days. He was admitted to the medical service. He underwent colonoscopy and endoscop y by Dr. Almazan on the and . His colonoscopy revealed a large apple-core lesion in his sigm oid colon. Surgical consult was obtained with Dr. Cortes, and the patient underwent a laparoscopic lo w anterior colectomy with Matt pouch and end colostomy placement. The patient had a large cancer at the pelvic reflection with abscess and perforation. Postoperatively, the patient had worsening kidney function with his creatinine going up from 2.5 to a level of 3.6 yesterday. During this time, the patient was briefly oliguric on the . Since that time, he has had urine outputs of anywhere from 950 to 1300 per day. With this return in kidney fun ction, the patient's creatinine has come down to 3.3, although he has had mildly elevated potassium l evels of 5.3 and 5.6. PAST MEDICAL HISTORY: For complete heart block, hypertension, gout, chronic kidney disease, left upp er extremity deep venous thrombosis and iron deficiency anemia. PAST SURGICAL HISTORY: For his recent sigmoid colon resection, inguinal hernia repair back 0, tonsillectomy, permanent pacemaker placement in 2003 with subsequent revision 10/17/2011. FAMILY HISTORY: Noncontributory. Both his parents are . SOCIAL HISTORY: The patient drinks 2 beers per day. He is a nonsmoker. He is . He has 2 ch ildren. REVIEW OF SYSTEMS: Negative except for that included in the history of present illness. PHYSICAL EXAMINATION: VITAL SIGNS: Temp 36.3, pulse 86, respirations 16, blood pressure 146/88. AP PEARANCE: Elderly male in no apparent distress. He is lying flat in bed. NEUROLOGICALLY: Grossly intact. HEENT: Atraumatic, normocephalic. NECK: Unremarkable. HEART: Regular with no extra hear t sounds. LUNGS: Decreased at the bases but otherwise clear. ABDOMEN: He has the colostomy in his left lower quadrant. He has a drain coming from his right lower quadrant. Incision intact. EXTREM ITIES: Free of edema. LABS: Show a potassium of 5.6, creatinine 3.3. He peaked at 3.6 yesterday. Urine sodium of 108 wit h a urine creatinine of 40. White count has come down from 16.7 down to 12,000. ASSESSMENT: Acute on chronic respiratory failure. His baseline creatinine is right around 2.5. He has been stable in that range since December 07, 2013. He sees Dr. Cardoza regularly for his followup on t his problem. His admission creatinine was at his baseline. He subsequently went into acute renal fa ilure. This would be most consistent with acute tubular necrosis. At the present time, he has impro mikayla urine output and his creatinine is falling. I think there are no indications for dialysis at [facility] s time. I suspect his kidney function will recover spontaneously. He may need additional IV fluid to avoid p rerenal azotemia in his postoperative state, especially since he is not really eating anything at [facility] time. He has mild hyperkalemia. This should respond to discontinuation of the potassium and his IV fluid. He could receive bicarbonate containing IV fluids or simply more IV fluids if the potassium does not return to the normal range. He has already been given Kionex. In general, I would try to limit Kio nex therapy in patients recovering from a surgical procedure on their bowel. There is some concern t hat Kionex can induce tissue injury in this compromised state. /[id number]/MODL
--- NOTE | 2016-09-09 14:42 | US ---
Renal Sonography Clinical History: 89-year-old male inpatient with acute renal failure. Technique: A curvilinear 5 MHz transducer was used to sonographically evaluate the kidneys and the ur inary bladder. Color Doppler was also used. Comparison study: None. Findings: Multiple bilateral renal cortical cysts are seen, rounded and anechoic with no intrinsic s eptation, mural nodularity, or debris. The right kidney measures 9.9 x 6.0 x 5.5 cm, and in the later al midpole, there is a 4.7 x 4.0 x 4.0 cm cyst. In the upper pole, there is a 2.4 x 2.0 x 2.3 cm cyst . The left kidney measures 9.9 x 5.3 x 5.0 cm, and in the lower pole, there is a 1.3 x 1.1 x 1.3 cm exo phytic cyst, and in the upper pole, there is a 1.3 x 1.1 x 0.9 cm cortical cyst. There is no hydronep hrosis or perinephric fluid. The urinary bladder is moderately distended, with a prevoid volume of 316 mL. Ureteral jets were not seen with color Doppler. The patient was unable to void when requested. There is limited assessment o f the bladder, secondary to some incisional bandaging from recent surgery. Impression: 1. Bilateral renal cortical cysts. 2. There is no evidence of hydronephrosis, although ureteral jets were not seen at the level of the u rinary bladder.
--- NOTE | 2016-09-09 17:13 | SOAPPROG ---
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 and anemia/ hct 25 abd soft wo masses or hernias risks and options fully discussed with pt and family who wish to proceed with surgery Plan: left colectomy in am/ may need colostomy 09/04/16 20:30 09/05/16 12:13 HCT SLIGHTLY LOWER/ ABD SOFT/ RISKS AND OPTIONS FULLY DISCUSSED AGAIN/ PROCEED WITH LAP COLECTOMY 09/09/16 17:12 afebrile/ wound ok/ ostomy ok/ small ostomy output/ path pending Objective: Vital Signs Temp Pulse Resp BP Pulse Ox 36.5 C 95 18 139/78 H 95 09/09/16 15:42 09/09/16 15:03 09/09/16 15:03 09/09/16 15:03 09/09/16 15:03 Microbiology 09/05/16 13:17 Gram Stain - Final Pelvis - Aspirate 09/03/16 15:25 Blood Culture - Final Blood Laboratory Results 09/09/16 03:30 09/09/16 11:24 09/08/16 09/09/16 09/10/16 05:59 05:59 05:59 Intake Total 2190 1641 Output Total 1485 1375 350 Balance 705 266 -350 PT 13.5 SEC (12.0-15.0) 09/03/16 14:45 INR 1.05 (0.83-1.16) 09/03/16 14:45 ICD10 Worksheet Patient Problems: Problems Problem Status Diagnosed Acute blood loss anemia Acute GI bleed Acute Orthostatic hypotension Acute Cellulitis Acute
[2016-09-09] MEDS: ONDANSETRON 4 MG/2 ML VIAL IVP PRN (18:05)
[2016-09-09] MEDS: HYDROmorphONE/DILAUDID 1 MG/ML SYR IVP PRN (22:04)
[2016-09-10] MEDS ORDERED: HALOPERIDOL LACT 5 MG/ML INJ IVP ONE (01:34)
[2016-09-10 05:18] LABS: ALANINE AMINOTRANSFERASE 43 IU/L (21-72); ALBUMIN 1.9 g/dL (3.5-5.0); ALKALINE PHOSPHATASE 78 IU/L (38-126); ANION GAP 7 mEq/L (8-16); ASPARTATE AMINOTRANSFERASE 37 IU/L (17-59); BILIRUBIN,TOTAL 0.5 mg/dL (0.1-1.4); BILIRUBIN-CONJUGATED 0.5 mg/dL (0.0-0.5); CALCIUM 8.6 mg/dL (8.5-10.4); CARBON DIOXIDE 17 mEq/l (22-31); CHLORIDE 118 mEq/L (97-110); CREATININE 2.9 mg/dL (0.7-1.3); GLOMERULAR FILTRATION RATE 21; GLUCOSE 80 mg/dL (70-100); POTASSIUM 5.3 mEq/L (3.5-5.2); SODIUM 142 mEq/L (134-144); TOTAL PROTEIN 4.2 g/dL (6.3-8.2)
[2016-09-10 06:24] LABS: % IMMATURE GRANULYOCYTES 0.7 % (0.0-1.1); ABSOLUTE IMMATURE GRANULOCYTES 0.09 10^3/uL (0.00-0.10); ADD DIFF? NO; ADD MORPH? NO; ADD SCAN? NO; ATYPICAL LYMPHOCYTE FLAG 0 (0-99); FRAGMENT RBC FLAG 20 (0-99); HEMATOCRIT 25.5 % (40.0-51.0); HEMOGLOBIN 8.1 g/dL (13.7-17.5); LEFT SHIFT FLG 0 (0-99); LIPEMIA HEMOLYSIS FLAG 80 (0-99); MEAN CELL HEMOGLOBIN CONCENTR. 31.8 g/dL (32.4-36.7); MEAN PLATELET VOLUME 9.7 fL (8.7-11.7); PLATELET CLUMPS FLAG 10 (0-99); PLATELET COUNT 282 10^3/uL (150-400); RED CELL DISTRIBUTION WIDTH 16.7 % (11.5-15.2)
[2016-09-10] MEDS: ERTAPENEM 0.5 GM in NS 100 ML IV SCH (07:53)
--- NOTE | 2016-09-10 09:34 | SOAPPROG ---
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 and anemia/ hct 25 abd soft wo masses or hernias risks and options fully discussed with pt and family who wish to proceed with surgery Plan: left colectomy in am/ may need colostomy 09/04/16 20:30 09/05/16 12:13 HCT SLIGHTLY LOWER/ ABD SOFT/ RISKS AND OPTIONS FULLY DISCUSSED AGAIN/ PROCEED WITH LAP COLECTOMY 09/09/16 17:12 afebrile/ wound ok/ ostomy ok/ small ostomy output/ path pending 09/10/16 09:34 CONFUSED/ POOR PO INTAKE/ OSTOMY OK/ AFEBRILE/ LABS STABLE Objective: Vital Signs Temp Pulse Resp BP Pulse Ox 36.4 C 91 18 128/66 H 98 09/10/16 07:42 09/10/16 07:42 09/10/16 07:42 09/10/16 07:42 09/10/16 07:42 Microbiology 09/05/16 13:17 Gram Stain - Final Pelvis - Aspirate 09/03/16 15:25 Blood Culture - Final Blood Laboratory Results 09/10/16 06:05 09/10/16 04:50 09/09/16 09/10/16 09/11/16 05:59 05:59 05:59 Intake Total 1641 2592 Output Total 1375 1175 Balance 266 1417 PT 13.5 SEC (12.0-15.0) 09/03/16 14:45 INR 1.05 (0.83-1.16) 09/03/16 14:45 ICD10 Worksheet Patient Problems: Problems Problem Status Diagnosed Acute blood loss anemia Acute GI bleed Acute Orthostatic hypotension Acute Cellulitis Acute
--- NOTE | 2016-09-10 09:46 | HOSPPROG ---
Hospitalist Progress Note Assessment/Plan: Mr Palomares is 89 yo M p/w acute perforated rectosigmoid mass w/ polymicrobial abscess c/b acute blood loss anemia, lower GI bleed, ASHA on CKD. #. GI bleed due to a sigmoid mass - status post resection and colostomy - perforation and abscess were found - was given a unit of packed red blood cells hemoglobin is 8.1 hematocrit is 25 # Acute blood loss anemia. - s/p 1u PRBC - cont to monitor Hgb # Perforated rectosigmoid mass with polymicrobial abscess. POA, -POD#5 Matt - Cx w/ Klebsiella an E coli - on ertapenem - pathology pending - will likely need longer treatment with IV abx therapy/ appreciate ID involvement #. Acute Kidney injury on chronic kidney disease -baseline creat is 2.1/ is trending down and now is 2.9 -appreciate nephrology #. hyperkalemia -K still mildly elevated -cont fluids/ poor intake #. CKD stage IV # Gout. Chronic - given recent surgery and potential impairment in healing, stop prednisone Diet. regular Prophylaxis. Moderate risk patient, heparin subcu Code. Full Disposition. pending/ will need SNF Plan: Kapil is not quite ready for dc/get repeat labs in a.m./ ask dietary to see Subjective: Kapil is confused this morning/ not c/o pain. Objective: Vital Signs Temp Pulse Resp BP Pulse Ox 36.4 C 91 18 128/66 H 98 09/10/16 07:42 09/10/16 07:42 09/10/16 07:42 09/10/16 07:42 09/10/16 07:42 Microbiology 09/05/16 13:17 Gram Stain - Final Pelvis - Aspirate 09/03/16 15:25 Blood Culture - Final Blood Laboratory Results 09/10/16 06:05 09/10/16 04:50 09/09/16 09/10/16 09/11/16 05:59 05:59 05:59 Intake Total 1641 2592 Output Total 1375 1175 Balance 266 1417 PT 13.5 SEC (12.0-15.0) 09/03/16 14:45 INR 1.05 (0.83-1.16) 09/03/16 14:45 - Physical Exam Constitutional: no apparent distress, chronically ill appearing Eyes: PERRL Ears, Nose, Mouth, Throat: hearing normal Cardiovascular: regular rate and rhythym Respiratory: no respiratory distress, reduced air movement (bibasilar) Gastrointestinal: normoactive bowel sounds, other (colostomy with stool ) Skin: warm, No normal color (pale) Musculoskeletal: no muscle tenderness Neurologic: other (alert and oriented only to himself/ confused) Psychiatric: interacting appropriately, not anxious ICD10 Worksheet Patient Problems: Problems Problem Status Diagnosed Acute blood loss anemia Acute GI bleed Acute Orthostatic hypotension Acute Cellulitis Acute
[2016-09-10] MEDS: PANTOPRAZOLE SODIUM 40 MG in NS 100 ML IV SCH ×2 (09:47→20:44)
[2016-09-10] MEDS: IPRATROPIUM/ALBUTEROL 3 ML DEYVIAL IH SCH ×2 (11:00→15:34)
[2016-09-10] MEDS: guaiFENesin 600 MG TAB.ER PO SCH ×2 (11:11→20:41)
--- NOTE | 2016-09-10 13:48 | SOAPPROG ---
SOAP Progress Note Assessment/Plan: Assessment: ASHA, slightly better today hyperkalemia, mild Anemia, avoid transfusion for now with elevated K CKD 4, baseline creat about 2.5 Plan: continue antibiotics for his GNR pelvic infection no urgent HD orders follow lytes vol and renal function encouraged nutrition encouraged up and around 09/10/16 13:44 Subjective: complains of weakness denies pain nausea or vomiting confused Objective: Vital Signs Temp Pulse Resp BP Pulse Ox 36.4 C 99 16 128/66 H 95 09/10/16 07:42 09/10/16 11:06 09/10/16 11:06 09/10/16 07:42 09/10/16 11:06 Microbiology 09/05/16 13:17 Gram Stain - Final Pelvis - Aspirate 09/03/16 15:25 Blood Culture - Final Blood Laboratory Results 09/10/16 06:05 09/10/16 04:50 09/09/16 09/10/16 09/11/16 05:59 05:59 05:59 Intake Total 1641 2592 Output Total 1375 1175 Balance 266 1417 PT 13.5 SEC (12.0-15.0) 09/03/16 14:45 INR 1.05 (0.83-1.16) 09/03/16 14:45 Physical Exam - Physical Exam General Appearance: thin, other (confused) Respiratory: No rhonchi, No wheezing Cardiac/Chest: regular rate, rhythm, No friction rub Abdomen: non-tender Neuro/Psych: alert ICD10 Worksheet Patient Problems: Problems Problem Status Diagnosed Acute blood loss anemia Acute GI bleed Acute Orthostatic hypotension Acute Cellulitis Acute
--- NOTE | 2016-09-10 13:51 | PCMIDPN ---
Assessment/Plan: Assessment: polymicrobial peritonitis --- following sigmoid colon mass resection and peritonitis. Patient is quite confused but I think this may be close to baseline. No signs of worsening problems. Seems to be tolerating IV ertapenem. Plan: 1) Continue IV ertapenem for a total of four weeks. 2) Antibiotic sheet completed. SNF transfer when available. 09/10/16 13:47 Subjective: Patient sitting up in his chair in the hospital room. No fevers or chills. No rash. Objective: ertapenem #5 Vital Signs Temp Pulse Resp BP Pulse Ox 36.4 C 99 16 128/66 H 95 09/10/16 07:42 09/10/16 11:06 09/10/16 11:06 09/10/16 07:42 09/10/16 11:06 Microbiology 09/05/16 13:17 Gram Stain - Final Pelvis - Aspirate 09/03/16 15:25 Blood Culture - Final Blood Laboratory Results 09/10/16 06:05 09/10/16 04:50 09/09/16 09/10/16 09/11/16 05:59 05:59 05:59 Intake Total 1641 2592 Output Total 1375 1175 Balance 266 1417 - Physical Exam General Appearance: WD/WN, alert, no apparent distress, non-toxic, other ( confused ? chronic) Respiratory: lungs clear, normal breath sounds, No respiratory distress Cardiac/Chest: regular rate, rhythm, No tachycardia Skin: normal color, warm/dry, No rash Neuro/Psych: alert, normal mood/affect ICD10 Worksheet Patient Problems: Problems Problem Status Diagnosed Acute blood loss anemia Acute GI bleed Acute Orthostatic hypotension Acute Cellulitis Acute
[2016-09-10 17:08] LABS: BASE EXCESS -10.8 mEq/L (-2.5-2.5); BICARBONATE 13 mEq/L (22-26); MEASURED OXYGEN SATURATION 91 % (92-95); PCO2 26 mmHg (34-38); PO2 66 mmHg (65-75); TCO2 14 mEq/L (23-27)
--- NOTE | 2016-09-10 17:46 | CT ---
CT Brain (Without Contrast) September 10, 2016 at 1729 hours History: Stroke alert. Comparison: None relevant. Technique: Axial computed tomographic images of the brain without contrast. Dose reduction techniques were utilized. Findings: Ventricles, cisterns, and sulci are widened consistent with atrophy. No hydrocephalus, midl ine shift/herniation, or epidural/subdural hematomas. No acute intraparenchymal hemorrhage or mass ef fect. Cerebrovascular atherosclerosis. Hypodensities in the white matter of bilateral cerebral hemisp heres. Bone windows demonstrate no displaced fractures. Paranasal sinuses and mastoid air cells are clear. Impression: 1. Moderate atrophy. 2. No acute hemorrhage, hydrocephalus, or mass effect. 3. Cerebrovascular atherosclerosis. 4. No definite acute infarct. 5. Moderate microvascular ischemic disease. Critical results were relayed by Dr. Baldwin to Dr. Teran on September 10, 2016 at 1735 hours.
[2016-09-11] MEDS: HYDROmorphONE/DILAUDID 1 MG/ML SYR IVP PRN (00:55)
[2016-09-11] MEDS ORDERED: LORazepam 2 MG/ML INJ IVP PRN (02:04)
[2016-09-11] MEDS: IPRATROPIUM/ALBUTEROL 3 ML DEYVIAL IH SCH ×5 (04:25→22:43)
[2016-09-11 05:13] LABS: ABSOLUTE IMMATURE GRANULOCYTES 0.11 10^3/uL (0.00-0.10); ADD DIFF? NO; ADD MORPH? NO; ADD SCAN? NO; ATYPICAL LYMPHOCYTE FLAG 0 (0-99); FRAGMENT RBC FLAG 20 (0-99); HEMATOCRIT 26.4 % (40.0-51.0); HEMOGLOBIN 8.5 g/dL (13.7-17.5); LEFT SHIFT FLG 0 (0-99); LIPEMIA HEMOLYSIS FLAG 80 (0-99); MEAN CELL HEMOGLOBIN 27.5 pg (27.9-34.1); MEAN CELL HEMOGLOBIN CONCENTR. 32.2 g/dL (32.4-36.7); MEAN CELL VOLUME 85.4 fL (81.5-99.8); MEAN PLATELET VOLUME 9.3 fL (8.7-11.7); PLATELET CLUMPS FLAG 10 (0-99); PLATELET COUNT 236 10^3/uL (150-400); RED BLOOD CELL COUNT 3.09 10^6/uL (4.40-6.38)
[2016-09-11 05:24] LABS: ANION GAP 7 mEq/L (8-16); CALCIUM 8.8 mg/dL (8.5-10.4); CARBON DIOXIDE 17 mEq/l (22-31); CHLORIDE 121 mEq/L (97-110); CREATININE 2.8 mg/dL (0.7-1.3); GLOMERULAR FILTRATION RATE 21; GLUCOSE 61 mg/dL (70-100); POTASSIUM 5.5 mEq/L (3.5-5.2); SODIUM 145 mEq/L (134-144)
[2016-09-11] MEDS ORDERED: SODIUM POLY SULF 15 GM/60 ML BOTTLE PO ONE (07:45)
[2016-09-11] MEDS ORDERED: ALBUTEROL 3 ML DEYVIAL IH ONE (07:46)
[2016-09-11] MEDS: ERTAPENEM 0.5 GM in NS 100 ML IV SCH (09:28)
[2016-09-11] MEDS: guaiFENesin 600 MG TAB.ER PO SCH ×2 (09:30→21:59)
[2016-09-11] MEDS: predniSONE 5 MG TAB PO SCH (09:31)
[2016-09-11] MEDS: PANTOPRAZOLE SODIUM 40 MG in NS 100 ML IV SCH ×2 (09:32→21:59)
--- NOTE | 2016-09-11 10:39 | HOSPPROG ---
Hospitalist Progress Note Assessment/Plan: Mr Palomares is 89 yo M p/w acute perforated rectosigmoid mass w/ polymicrobial abscess c/b acute blood loss anemia, lower GI bleed, ASHA on CKD. #. GI bleed due to a sigmoid mass - status post resection and colostomy - perforation and abscess were found - was given a unit of packed red blood cells hemoglobin is 8.5 hematocrit is 26 # Acute blood loss anemia. - s/p 1u PRBC - overall stable # acute encephalopathy/ confusion/ delirium patient has acute onset of symptoms yesterday/ CT scan showed nothing acute CAM method confirms delirium spoke with his and she is ok with trial of Zyprexa (should not stay on this senior living)/ reviewed w her the black box warnings patient does not have hx of dementia # Perforated rectosigmoid mass with polymicrobial abscess. POA, -POD#6 Matt - Cx w/ Klebsiella an E coli - on ertapenem - pathology pending - will likely need longer treatment with IV abx therapy/ appreciate ID involvement #. Acute Kidney injury on chronic kidney disease -baseline creat is 2.1/ is trending down and now is 2.8 -appreciate nephrology #. hyperkalemia -K still elevated -cont fluids/ poor intake -albuterol x 1 ordered now and Kayexalate #. CKD stage IV # Gout. Chronic - given recent surgery and potential impairment in healing, stop prednisone Diet. regular Prophylaxis. Moderate risk patient, heparin subcu Code. Full Disposition. pending/ will need SNF Plan: trial of Zyprexa, repeat K this afternoon Subjective: Kapil is unable to tell me if he is in pain. Objective: Vital Signs Temp Pulse Resp BP Pulse Ox 36.8 C 104 H 18 141/81 H 99 09/11/16 08:00 09/11/16 03:01 09/11/16 03:01 09/11/16 08:00 09/11/16 03:01 Microbiology 09/05/16 13:17 Gram Stain - Final Pelvis - Aspirate Laboratory Results 09/11/16 04:55 09/11/16 04:55 09/10/16 09/11/16 09/12/16 05:59 05:59 05:59 Intake Total 2592 Output Total 1175 550 Balance 1417 -550 PT 13.5 SEC (12.0-15.0) 09/03/16 14:45 INR 1.05 (0.83-1.16) 09/03/16 14:45 - Physical Exam Constitutional: chronically ill appearing, unkempt Eyes: PERRL Ears, Nose, Mouth, Throat: hearing normal Cardiovascular: regular rate and rhythym Respiratory: no respiratory distress, reduced air movement, other (loose nonproductive cough) Gastrointestinal: other (colostomy with loose small amount of stool) Skin: warm, No normal color (pale) Musculoskeletal: full muscle strength Neurologic: other (alert, impulsive, agiatated) Psychiatric: encephalopathic ICD10 Worksheet Patient Problems: Problems Problem Status Diagnosed Acute blood loss anemia Acute GI bleed Acute Orthostatic hypotension Acute Cellulitis Acute
--- NOTE | 2016-09-11 10:41 | WOCRNPDOC ---
XI Advanced Assessment Note - Colostomy Assessment, Advanced Left Lower Abdomen Colostomy Stoma Colostomy Appliance Intact: Yes Colostomy Appliance Currently in Use: Two Piece Flat, 2 1/4 Stoma Color: Red Stoma Turgor: Moist Stoma Shape: Oval Stoma Height: Protruding Slightly Colostomy Effluent: Fecal Colostomy Details: End, Matt's Pouch Colostomy Comment/Treatment Details: Patient very confused and hallucinating. Non teachable today and unable to give verbal consent for samples. Day 1 colostomy teaching left in patient's room. Glo KLEIN aware. Will check in again tomorrow.
[2016-09-11] MEDS ORDERED: OLANZapine 2.5 MG TAB PO ONE (10:45)
[2016-09-11] MEDS ORDERED: OLANZapine 10 MG/2 ML VIAL IM ONE (11:34)
--- NOTE | 2016-09-11 12:45 | SOAPPROG ---
SOAP Progress Note Assessment/Plan: Assessment: 89yo male s/p colon resection, Marquez's, for sigmoid mass, bleeding. Now with delerium. Tolerating regular diet per family, pt more confused over last couple days, recent CT head negative PE confused, in chair abdomen stapled low midline incision clean and dry, soft, no signs of tenderness to palpation, ostomy pink Plan: no new orders at this time will discuss with Dr Cortes 09/11/16 12:42 Objective: Vital Signs Temp Pulse Resp BP Pulse Ox 36.8 C 82 18 108/65 97 09/11/16 08:00 09/11/16 12:00 09/11/16 12:00 09/11/16 10:54 09/11/16 10:54 Microbiology 09/05/16 13:17 Gram Stain - Final Pelvis - Aspirate Laboratory Results 09/11/16 04:55 09/11/16 04:55 09/10/16 09/11/16 09/12/16 05:59 05:59 05:59 Intake Total 2592 Output Total 1175 550 50 Balance 1417 -550 -50 PT 13.5 SEC (12.0-15.0) 09/03/16 14:45 INR 1.05 (0.83-1.16) 09/03/16 14:45 ICD10 Worksheet Patient Problems: Problems Problem Status Diagnosed Acute blood loss anemia Acute GI bleed Acute Orthostatic hypotension Acute Cellulitis Acute
--- NOTE | 2016-09-11 13:09 | SOAPPROG ---
SOAP Progress Note Assessment/Plan: Assessment: ASHA, slightly better today, continues to slowly improve hyperkalemia, mild Anemia, avoid transfusion for now with elevated K CKD 4, baseline creat about 2.5 Plan: continue antibiotics for his GNR pelvic infection no urgent HD orders follow lytawanna vol and renal function kayexalate given earlier today, he spit it out 09/10/16 13:44 09/11/16 13:06 Subjective: more confused today family at bedside Kapil isn't answering my questions today Objective: Vital Signs Temp Pulse Resp BP Pulse Ox 36.8 C 82 18 108/65 97 09/11/16 08:00 09/11/16 12:00 09/11/16 12:00 09/11/16 10:54 09/11/16 10:54 Microbiology 09/05/16 13:17 Gram Stain - Final Pelvis - Aspirate Laboratory Results 09/11/16 04:55 09/11/16 04:55 09/10/16 09/11/16 09/12/16 05:59 05:59 05:59 Intake Total 2592 Output Total 1175 550 50 Balance 1417 -550 -50 PT 13.5 SEC (12.0-15.0) 09/03/16 14:45 INR 1.05 (0.83-1.16) 09/03/16 14:45 Physical Exam - Physical Exam General Appearance: cachetic, other Respiratory: No rhonchi, No wheezing Cardiac/Chest: regular rate, rhythm, edema, No gallop, No friction rub Abdomen: non-tender Neuro/Psych: other (no asterixis) ICD10 Worksheet Patient Problems: Problems Problem Status Diagnosed Acute blood loss anemia Acute GI bleed Acute Orthostatic hypotension Acute Cellulitis Acute
--- NOTE | 2016-09-11 14:48 | PCMIDPN ---
Assessment/Plan: Assessment: polymicrobial peritonitis --- following sigmoid colon mass resection and peritonitis. The patient's agitation has worsened since yesterday. He is exhibiting signs of dyskinesia. Trying to retrospectively piece this together I think that the patient had delirium overnight and then was treated with 2.5 mg of Zyprexa x2. I believe the Zyprexa is responsible for the dyskinesia that I am seeing now. Discussed case with Wendie Paiz. Plan: 1) Continue IV ertapenem for a total of four weeks. 2) Antibiotic sheet completed. SNF transfer when available. Subjective: Patient is sitting in a chair in his hospital room. He is agitated. He is having difficulty articulating words. He answers to question and voice. He is showing dyskinetic movement of the arms as well as face. No fevers. Objective: Ertapenem # 6 Vital Signs Temp Pulse Resp BP Pulse Ox 36.8 C 82 18 108/65 97 09/11/16 08:00 09/11/16 12:00 09/11/16 12:00 09/11/16 10:54 09/11/16 10:54 Microbiology 09/05/16 13:17 Gram Stain - Final Pelvis - Aspirate Laboratory Results 09/11/16 04:55 09/11/16 13:05 09/10/16 09/11/16 09/12/16 05:59 05:59 05:59 Intake Total 2592 Output Total 1175 550 50 Balance 1417 -550 -50 - Physical Exam General Appearance: WD/WN, alert, apparent distress, other (dyskinetic movements ) Respiratory: lungs clear, other (Rhonchi noted.), No normal breath sounds, No respiratory distress Cardiac/Chest: regular rate, rhythm, No bradycardia Extremities: non-tender, No normal inspection (Right upper extremity PICC line site with surrounding superficial edema and mild dependent erythema. No induration of the soft tissues. No warmth or tenderness to palpation.) Skin: normal color, warm/dry Neuro/Psych: alert, oriented x 3, No normal mood/affect ICD10 Worksheet Patient Problems: Problems Problem Status Diagnosed Acute blood loss anemia Acute GI bleed Acute Orthostatic hypotension Acute Cellulitis Acute
[2016-09-11] MEDS: NS 1,000 ML IV SCH ×2 (16:19→18:20)
[2016-09-11] MEDS ORDERED: HALOPERIDOL 1 MG TAB PO PRN (17:00)
[2016-09-12 05:30] LABS: % IMMATURE GRANULYOCYTES 0.7 % (0.0-1.1); ABSOLUTE IMMATURE GRANULOCYTES 0.07 10^3/uL (0.00-0.10); ADD DIFF? NO; ADD MORPH? NO; ADD SCAN? NO; ATYPICAL LYMPHOCYTE FLAG 0 (0-99); FRAGMENT RBC FLAG 10 (0-99); HEMATOCRIT 23.8 % (40.0-51.0); HEMOGLOBIN 7.7 g/dL (13.7-17.5); LEFT SHIFT FLG 0 (0-99); LIPEMIA HEMOLYSIS FLAG 80 (0-99); MEAN CELL HEMOGLOBIN 28.3 pg (27.9-34.1); MEAN CELL HEMOGLOBIN CONCENTR. 32.4 g/dL (32.4-36.7); MEAN CELL VOLUME 87.5 fL (81.5-99.8); MEAN PLATELET VOLUME 9.8 fL (8.7-11.7); PLATELET CLUMPS FLAG 0 (0-99); PLATELET COUNT 258 10^3/uL (150-400); RED BLOOD CELL COUNT 2.72 10^6/uL (4.40-6.38); RED CELL DISTRIBUTION WIDTH 17.2 % (11.5-15.2)
[2016-09-12 05:42] LABS: ANION GAP 8 mEq/L (8-16); CALCIUM 8.7 mg/dL (8.5-10.4); CARBON DIOXIDE 17 mEq/l (22-31); CHLORIDE 124 mEq/L (97-110); CREATININE 2.8 mg/dL (0.7-1.3); GLOMERULAR FILTRATION RATE 21; GLUCOSE 63 mg/dL (70-100); POTASSIUM 5.2 mEq/L (3.5-5.2); SODIUM 149 mEq/L (134-144)
[2016-09-12] MEDS: IPRATROPIUM/ALBUTEROL 3 ML DEYVIAL IH SCH ×3 (06:01→17:07)
[2016-09-12] MEDS: ERTAPENEM 0.5 GM in NS 100 ML IV SCH (08:22)
[2016-09-12] MEDS: NS 1,000 ML IV SCH (08:22)
[2016-09-12] MEDS: PANTOPRAZOLE SODIUM 40 MG in NS 100 ML IV SCH ×2 (08:22→21:26)
[2016-09-12] MEDS: predniSONE 5 MG TAB PO SCH (10:15)
[2016-09-12] MEDS: guaiFENesin 600 MG TAB.ER PO SCH ×2 (10:15→20:38)
[2016-09-12 10:40] LABS: % IMMATURE GRANULYOCYTES 0.6 % (0.0-1.1); ABSOLUTE IMMATURE GRANULOCYTES 0.07 10^3/uL (0.00-0.10); ADD DIFF? NO; ADD MORPH? NO; ADD SCAN? NO; ATYPICAL LYMPHOCYTE FLAG 0 (0-99); FRAGMENT RBC FLAG 10 (0-99); HEMATOCRIT 26.1 % (40.0-51.0); HEMOGLOBIN 8.4 g/dL (13.7-17.5); LEFT SHIFT FLG 0 (0-99); LIPEMIA HEMOLYSIS FLAG 80 (0-99); MEAN CELL HEMOGLOBIN 27.9 pg (27.9-34.1); MEAN CELL HEMOGLOBIN CONCENTR. 32.2 g/dL (32.4-36.7); MEAN CELL VOLUME 86.7 fL (81.5-99.8); MEAN PLATELET VOLUME 9.4 fL (8.7-11.7); PLATELET CLUMPS FLAG 0 (0-99); PLATELET COUNT 275 10^3/uL (150-400); RED BLOOD CELL COUNT 3.01 10^6/uL (4.40-6.38); RED CELL DISTRIBUTION WIDTH 17.4 % (11.5-15.2)
--- NOTE | 2016-09-12 10:58 | SOAPPROG ---
SOAP Progress Note Assessment/Plan: Assessment: ASHA, creat stable at 2.8, continues to slowly improve hyperkalemia, better Anemia following CKD 4, baseline creat about 2.5 mild hypernatremia delirium may be a bit better today, Plan: continue antibiotics for his GNR pelvic infection no urgent HD needs follow lytes vol and renal function change NS to 1/2 NS 09/10/16 13:44 09/11/16 13:06 09/12/16 10:55 09/12/16 11:00 Subjective: Family at bedside may be tracking a bit better still not answering questions, but is trying Objective: Vital Signs Temp Pulse Resp BP Pulse Ox 35.8 C L 86 20 131/71 H 97 09/12/16 08:00 09/12/16 08:00 09/12/16 08:00 09/12/16 08:00 09/12/16 08:00 Microbiology 09/05/16 13:17 Gram Stain - Final Pelvis - Aspirate Laboratory Results 09/12/16 10:30 09/11/16 09/12/16 09/13/16 05:59 05:59 05:59 Intake Total 188 Output Total 550 1220 30 Balance -550 -1032 -30 PT 13.5 SEC (12.0-15.0) 09/03/16 14:45 INR 1.05 (0.83-1.16) 09/03/16 14:45 Physical Exam - Physical Exam General Appearance: thin, other (chronically ill appearing) Respiratory: No rhonchi, No wheezing Cardiac/Chest: regular rate, rhythm, No edema, No friction rub Abdomen: other (bs+, stoma llq) Neuro/Psych: other (no asterixis) ICD10 Worksheet Patient Problems: Problems Problem Status Diagnosed Acute blood loss anemia Acute GI bleed Acute Orthostatic hypotension Acute Cellulitis Acute
[2016-09-12] MEDS ORDERED: 1/2 NS 1,000 ML IV SCH (11:00)
[2016-09-12 11:15] LABS: ANION GAP 13 mEq/L (8-16); CARBON DIOXIDE 16 mEq/l (22-31); CHLORIDE 124 mEq/L (97-110); CREATININE 2.7 mg/dL (0.7-1.3); GLOMERULAR FILTRATION RATE 22; GLUCOSE 66 mg/dL (70-100); SODIUM 153 mEq/L (134-144)
--- NOTE | 2016-09-12 11:57 | HOSPPROG ---
Hospitalist Progress Note Assessment/Plan: ASSESSMENT/PLAN: # encephalopathy d/t delirium - multifactorial; do not suspect any primary neurologic disorder - nonpharmacologic measures, treat underlying pathology, minimize medications # hypernatremia - changing to half normal saline # dysphagia/aspiration - due to delirium - check chest x-ray now - NPO - may need TPN soon # urinary retention with Roger - will attempt to discontinue Roger as soon as possible # colon perforation with abscess (e. 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, surgical pathology pending - has had no further staging at this point, will need eventually - follow-up final surgical pathology # acute blood loss anemia status post 2 units of packed red blood cells d/t GI bleed - follow # acute on chronic renal failure - slowly improving # hypoglycemia - add D5 to fluids # hyperkalemia, better today # gout - hold pred # FCFT # SQH SUBJECTIVE: Still very confused, seen with his family OBJECTIVE: Vitals reviewed Comfortable, no acute distress Regular rate and rhythm, no murmurs rubs or gallops No respiratory distress, lungs clear to auscultation bilaterally; no wheezes rales or rhonchi Abdomen with normal bowel sounds, soft, nontender, nondistended LABORATORY DATA: Hyponatremic, acidotic, creatinine slightly better IMAGING: Chest x-ray ordered MICROBIOLOGY: Klebsiella pneumoniae, E coli from abdominal aspirate Objective: Vital Signs Temp Pulse Resp BP Pulse Ox 35.8 C L 86 20 131/71 H 97 09/12/16 08:00 09/12/16 08:00 09/12/16 08:00 09/12/16 08:00 09/12/16 08:00 Microbiology 09/05/16 13:17 Gram Stain - Final Pelvis - Aspirate Laboratory Results 09/12/16 10:30 09/12/16 10:30 09/11/16 09/12/16 09/13/16 05:59 05:59 05:59 Intake Total 188 Output Total 550 1220 30 Balance -550 -1032 -30 PT 13.5 SEC (12.0-15.0) 09/03/16 14:45 INR 1.05 (0.83-1.16) 09/03/16 14:45 ICD10 Worksheet Patient Problems: Problems Problem Status Diagnosed Acute blood loss anemia Acute GI bleed Acute Orthostatic hypotension Acute Cellulitis Acute
[2016-09-12] MEDS ORDERED: D5W 500 ML IV SCH (12:00)
[2016-09-12] MEDS: D5W 1/2 NS 1,000 ML IV SCH (12:38)
[2016-09-12] MEDS ORDERED: HEPARIN 5,000 UNIT/0.5 ML SYR SC SCH (14:00)
--- NOTE | 2016-09-12 14:00 | PCMIDPN ---
Assessment/Plan: # AMS: Multifactorial, sodium disturbance, glucose disturbance, sleep disturbance, [employer]ORAIL [employer] active drugs. Rarely ertapenem can cause MONORAIL [employer]ATOR toxicity will adjust as below. Warned family antibiotic toxicity was not likely the primary cause of his delirium. # Peritonitis: Culture shows Klebsiella and E coli, but on Gram stain there was 3+ GPCs in chains. This does raise concern for Enterococcus although organisms could have been anaerobes. Because of the potential of ertapenem contributing to altered mental status and Gram stain findings will change patient to Zosyn for ongoing coverage of peritonitis. --DC ertapenem --start Zosyn renally dosed at 2.25 IV Q 8 --likely needs repeat CT scan (without IV contrast) to establish no residual abscess at some point # R Arm swelling associated with PICC line. Obtain right upper arm ultrasound to rule out DVT # renal insufficiency: Creatinine clearance is 20 Medications Ertapenem 500 mg IV daily, #7 Microbiology 09/05 pelvic aspirate: Gram stain 3+ PMNs, 3+ GPCs in chains; culture: 3+ Klebsiella, 3+ E coli Subjective: Patient is difficult to understand but with the assistance of his family it seems he has a able to state the name of his dog and his . Objective: Vital Signs Temp Pulse Resp BP Pulse Ox 35.8 C L 97 18 131/71 H 97 09/12/16 08:00 09/12/16 12:08 09/12/16 12:08 09/12/16 08:00 09/12/16 12:08 Microbiology 09/05/16 13:17 Gram Stain - Final Pelvis - Aspirate Anaerobic Culture - Final Klebsiella Pneumoniae Ssp Pneu Escherichia Coli Laboratory Results 09/12/16 10:30 09/12/16 10:30 09/11/16 09/12/16 09/13/16 05:59 05:59 05:59 Intake Total 188 Output Total 550 1220 100 Balance -550 -1032 -100 - Physical Exam General Appearance: alert, other (stuttering speech) EENT: dry mucous membranes, No scleral icterus Respiratory: lungs clear Neck: supple Cardiac/Chest: regular rate, rhythm Extremities: inflammation (Right upper extremity associated with PICC line), swelling (Right upper extremity) Abdomen: non-tender, soft, other (Ostomy left lower quadrant with stool in place , midline incision healing well with susan in place, JOSIANE drain with scant serosanguineous fluid) Skin: No rash Neuro/Psych: alert, confused (Seems confused but difficult to completely assess because of stuttering speech) - Line/s RUE PICC Lines: erythema, other (swelling), No drainage - Time Spent With Patient Time Spent with Patient: greater than 35 minutes Time Spent with Patient: Greater than 35 minutes spent on this patients care, greater than 50% of time spent counseling, educating, and coordinating care regarding the above mentioned plan. ICD10 Worksheet Patient Problems: Problems Problem Status Diagnosed Acute blood loss anemia Acute GI bleed Acute Orthostatic hypotension Acute Cellulitis Acute
[2016-09-12] MEDS: PIPERACILLIN/TAZO 2.25 GM/DEX 50 ML IV SCH ×2 (14:50→22:23)
--- NOTE | 2016-09-12 15:17 | DX ---
AP chest x-ray 1501 hours. History: Hypoxia. Findings: Comparison to September 03, 2016. Heart size remains upper limits of normal. Pulmonary vasculature is prominent centrally slightly incr eased since the prior study. Dual-lead pacemaker unit is in stable position. Increased markings are p resent at the lung bases left side greater than right. Rule out dependent edema versus infiltrate/pne umonia. The mid and upper lungs are clear. There is arteriosclerotic calcification at the aortic arch level. Osseous structures are unchanged. Impression: 1. Increased markings at the lung bases left side more than right. Rule out dependent edema possibly from volume overload versus possibility of bibasilar consolidation/pneumonia left side greater than r ight.
--- NOTE | 2016-09-12 15:27 | US ---
Ultrasound Venous Duplex Doppler right Arm History: Right arm pain and swelling. Findings: Ultrasound venous duplex/Doppler imaging of right internal jugular vein, subclavian vein, a xillary vein, cephalic vein, brachial vein, basilic vein, radial vein, and ulnar veins demonstrate po sitive intraluminal thrombus involving the right brachial vein, deep venous thrombosis, and right cep halic vein, superficial thrombophlebitis with cephalic vein thrombus extending into the proximal fore arm. No thrombus in the right axillary, subclavian or internal jugular vein. No thrombus in the left internal jugular vein. Impression: 1. Positive deep venous thrombosis right upper arm brachial vein. 2. Positive superficial thrombophlebitis right cephalic vein from the forearm to the upper arm. Patient's nurse notified at 1525 hour.
[2016-09-12] MEDS ORDERED: HEPARIN 10,000 UNIT/10 ML MDV IVP ONE (16:00)
[2016-09-12] MEDS ORDERED: HEPARIN 10,000 UNIT/10 ML MDV IVP PRN (16:00)
[2016-09-12] MEDS: HEPARIN/DEXTROSE 500 ML IV SCH (16:36)
[2016-09-12 17:18] LABS: INR 1.27 (0.83-1.16); PROTIME(PATIENT) 15.9 SEC (12.0-15.0)
[2016-09-12 17:19] LABS: APTT 37.9 SEC (23.0-38.0)
[2016-09-12 22:37] LABS: HEMATOCRIT 24.1 % (40.0-51.0); HEMOGLOBIN 7.7 g/dL (13.7-17.5)
[2016-09-13] MEDS: IPRATROPIUM/ALBUTEROL 3 ML DEYVIAL IH SCH ×4 (01:57→17:33)
[2016-09-13 04:48] LABS: % IMMATURE GRANULYOCYTES 0.8 % (0.0-1.1); ABSOLUTE IMMATURE GRANULOCYTES 0.08 10^3/uL (0.00-0.10); ADD DIFF? NO; ADD MORPH? NO; ADD SCAN? NO; ATYPICAL LYMPHOCYTE FLAG 0 (0-99); FRAGMENT RBC FLAG 10 (0-99); HEMATOCRIT 24.3 % (40.0-51.0); HEMOGLOBIN 7.8 g/dL (13.7-17.5); LEFT SHIFT FLG 0 (0-99); LIPEMIA HEMOLYSIS FLAG 80 (0-99); MEAN CELL HEMOGLOBIN 27.7 pg (27.9-34.1); MEAN CELL HEMOGLOBIN CONCENTR. 32.1 g/dL (32.4-36.7); MEAN CELL VOLUME 86.2 fL (81.5-99.8); MEAN PLATELET VOLUME 9.6 fL (8.7-11.7); PLATELET CLUMPS FLAG 0 (0-99); PLATELET COUNT 270 10^3/uL (150-400); RED BLOOD CELL COUNT 2.82 10^6/uL (4.40-6.38); RED CELL DISTRIBUTION WIDTH 17.4 % (11.5-15.2)
[2016-09-13 05:06] LABS: ALANINE AMINOTRANSFERASE 33 IU/L (21-72); ALKALINE PHOSPHATASE 60 IU/L (38-126); ANION GAP 7 mEq/L (8-16); ASPARTATE AMINOTRANSFERASE 27 IU/L (17-59); BILIRUBIN,TOTAL 0.5 mg/dL (0.1-1.4); CALCIUM 8.4 mg/dL (8.5-10.4); CARBON DIOXIDE 19 mEq/l (22-31); CHLORIDE 119 mEq/L (97-110); CREATININE 2.6 mg/dL (0.7-1.3); GLOMERULAR FILTRATION RATE 23; GLUCOSE 139 mg/dL (70-100); POTASSIUM 4.2 mEq/L (3.5-5.2); SODIUM 145 mEq/L (134-144); TOTAL PROTEIN 4.5 g/dL (6.3-8.2)
[2016-09-13] MEDS: PIPERACILLIN/TAZO 2.25 GM/DEX 50 ML IV SCH ×3 (06:20→20:42)
--- NOTE | 2016-09-13 09:08 | SOAPPROG ---
SOMADI Progress Note Assessment/Plan: Assessment: 89yo male s/p colon resection, Marquez's, for sigmoid mass, bleeding. Now with delerium. Tolerating regular diet per family, pt more confused over last couple days, recent CT head negative PE confused, in chair abdomen stapled low midline incision clean and dry, soft, no signs of tenderness to palpation, ostomy pink Plan: no new orders at this time will discuss with Dr Cortes 09/11/16 12:42 09/13/16 09:06 still very confused, noncommunicative, has sitter PE confused, awake abdomen colostomy in place, abdomen soft, incision without any erythema or signs of discharge Plan saw with Dr Deutsch no new orders at this time path reviewed Objective: Vital Signs Temp Pulse Resp BP Pulse Ox 36.6 C 90 15 139/72 H 92 09/13/16 07:36 09/13/16 07:36 09/13/16 07:36 09/13/16 07:36 09/13/16 07:36 Microbiology 09/05/16 13:17 Gram Stain - Final Pelvis - Aspirate Anaerobic Culture - Final Klebsiella Pneumoniae Ssp Pneu Escherichia Coli Laboratory Results 09/13/16 04:30 09/13/16 04:30 09/12/16 09/13/16 09/14/16 05:59 05:59 05:59 Intake Total 188 1200 Output Total 1220 1460 Balance -1032 -260 PT 15.9 SEC (12.0-15.0) H 09/12/16 16:30 INR 1.27 (0.83-1.16) H 09/12/16 16:30 ICD10 Worksheet Patient Problems: Problems Problem Status Diagnosed Acute blood loss anemia Acute GI bleed Acute Orthostatic hypotension Acute Cellulitis Acute
[2016-09-13] MEDS: PANTOPRAZOLE SODIUM 40 MG in NS 100 ML IV SCH ×2 (10:11→19:50)
[2016-09-13] MEDS: guaiFENesin 600 MG TAB.ER PO SCH ×2 (10:11→19:51)
[2016-09-13] MEDS: D5W 1/2 NS 1,000 ML IV SCH ×2 (10:14→19:50)
--- NOTE | 2016-09-13 13:51 | PCMIDPN ---
Assessment/Plan: Assessment/Plan: 1. Polymicrobial Intraabdominal abscess with peritonitis secondary to rectosigmoid mass with perforation: s/p wash out (09/05/16) - Currently on zosyn. Switched yesterday for broadening and alternative therapy in the possible event that invanz was contributing to altered mental status -Today with oozing from lower pole of incision site. mild when actively palpating around site. Given that and recent events, will check a f/u Ct abd/ pelvis without contrast to further follow up for any residual abscess collections. - Discussed with family and hospitalist team. - wbc slightly improved today.still with renal insuff. Meds zosysn 2.25gm q8- 09/12/16 s/p invanz Subjective: Afebrile. agitated. oozing from lower part of incision site. not much output from colostomy. Objective: Vital Signs Temp Pulse Resp BP Pulse Ox 36.6 C 90 15 139/72 H 92 09/13/16 07:36 09/13/16 07:36 09/13/16 07:36 09/13/16 07:36 09/13/16 07:36 Microbiology 09/05/16 13:17 Gram Stain - Final Pelvis - Aspirate Anaerobic Culture - Final Klebsiella Pneumoniae Ssp Pneu Escherichia Coli Laboratory Results 09/13/16 04:30 09/13/16 04:30 09/12/16 09/13/16 09/14/16 05:59 05:59 05:59 Intake Total 188 1200 Output Total 1220 1460 80 Balance -1032 -260 -80 - Physical Exam General Appearance: other (awake but agitated. ) Respiratory: lungs clear Cardiac/Chest: regular rate, rhythm Extremities: No swelling Abdomen: normal bowel sounds, soft, other (serosanguinous drainage from lower part of incision site.intermittent tenderness at right lower quadrant on palpation. beckie drain noted. colostomy.) Skin: No erythema ICD10 Worksheet Patient Problems: Problems Problem Status Diagnosed Acute blood loss anemia Acute GI bleed Acute Orthostatic hypotension Acute Cellulitis Acute
--- NOTE | 2016-09-13 14:01 | HOSPPROG ---
Hospitalist Progress Note Assessment/Plan: ASSESSMENT/PLAN: # encephalopathy d/t delirium - multifactorial; do not suspect any primary neurologic disorder - nonpharmacologic measures, treat underlying pathology, minimize medications # hypernatremia - changing to half normal saline - better # dysphagia/aspiration - due to delirium - passed swallow screen today - diet started # urinary retention with Roger - will attempt to discontinue Roger as soon as possible # colon perforation with abscess (e. 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, surgical pathology pending - has had no further staging at this point, will need eventually # acute blood loss anemia status post 2 units of packed red blood cells d/t GI bleed # acute on chronic renal failure - slowly improving # hypoglycemia - add D5 to fluids # hyperkalemia, better today # gout - hold pred # FCFT # SQH SUBJECTIVE: confusion improved today OBJECTIVE: Vitals reviewed Comfortable, no acute distress Regular rate and rhythm, no murmurs rubs or gallops No respiratory distress, lungs clear to auscultation bilaterally; no wheezes rales or rhonchi Abdomen with normal bowel sounds, soft, nontender, nondistended; incision with mild using in the inferior aspect, mild erythema LABORATORY DATA: sodium better IMAGING: MICROBIOLOGY: Klebsiella pneumoniae, E coli from abdominal aspirate Objective: Vital Signs Temp Pulse Resp BP Pulse Ox 36.6 C 90 15 139/72 H 92 09/13/16 07:36 09/13/16 07:36 09/13/16 07:36 09/13/16 07:36 09/13/16 07:36 Microbiology 09/05/16 13:17 Gram Stain - Final Pelvis - Aspirate Anaerobic Culture - Final Klebsiella Pneumoniae Ssp Pneu Escherichia Coli Laboratory Results 09/13/16 04:30 09/13/16 04:30 09/12/16 09/13/16 09/14/16 05:59 05:59 05:59 Intake Total 188 1200 Output Total 1220 1460 80 Balance -1032 -260 -80 PT 15.9 SEC (12.0-15.0) H 09/12/16 16:30 INR 1.27 (0.83-1.16) H 09/12/16 16:30 ICD10 Worksheet Patient Problems: Problems Problem Status Diagnosed Acute blood loss anemia Acute GI bleed Acute Orthostatic hypotension Acute Cellulitis Acute
--- NOTE | 2016-09-13 15:34 | SOAPPROG ---
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- suspect post-op ATN - Cr slowly improving, back to baseline mid-2 region -on IVF- continue for now -u/s neg for obstruction 2)Colon perforation with abscess- Klebsiella in culture -on zosyn 3)Adenocarcinoma colon s/p resection 4)PICC associated DVT- on heparin gtt 5)Delirium- better per family but still not at baseline 6)anemia of acute blood loss from GI bleed/ CKD -no MARY given malignancy -Hb stable -check iron stores- hold on repletion until infection resolves 7)hypernatremia -Na improving on D51.2 NS, continue to monitor 8)MBD of CKD -check phos am labs 9)hyperkalemia- better, K 4.2 today Ruthy Cook MD [facility] [phone] 09/13/16 15:37 Subjective: Family think he is more alert and interactive today. Trying to tell me but hard to understand, watching football on TV. No sob, cp, fevers. Cr improving. Objective: Vital Signs Temp Pulse Resp BP Pulse Ox 36.6 C 92 16 139/72 H 93 09/13/16 07:36 09/13/16 11:45 09/13/16 11:45 09/13/16 07:36 09/13/16 11:45 Microbiology 09/05/16 13:17 Gram Stain - Final Pelvis - Aspirate Anaerobic Culture - Final Klebsiella Pneumoniae Ssp Pneu Escherichia Coli Laboratory Results 09/13/16 04:30 09/13/16 04:30 09/12/16 09/13/16 09/14/16 05:59 05:59 05:59 Intake Total 188 1200 Output Total 1220 1460 80 Balance -1032 -260 -80 PT 15.9 SEC (12.0-15.0) H 09/12/16 16:30 INR 1.27 (0.83-1.16) H 09/12/16 16:30 Physical Exam - Physical Exam General Appearance: no apparent distress EENT: other (no icterus) Neck: supple Respiratory: lungs clear, other (poor effort) Cardiac/Chest: regular rate, rhythm, other (no rub) Abdomen: normal bowel sounds, non-tender, soft Extremities: other (trace edema bilat) Neuro/Psych: alert, other (mumbling speech, tracks and follows commands) ICD10 Worksheet Patient Problems: Problems Problem Status Diagnosed Acute blood loss anemia Acute GI bleed Acute Orthostatic hypotension Acute Cellulitis Acute
--- NOTE | 2016-09-13 16:27 | CT ---
CT Abdomen and Pelvis Without Contrast dated September 13, 2016 Indication: 89-year-old man with history of rectosigmoid mass with perforation and abscess washout. P atient now oozing from lower incision site. Evaluate for residual abscess. Technique: The abdomen and pelvis was scanned with 5 mm thick helically acquired slices. No oral or i ntravenous contrast was administered. Dose reduction techniques were utilized. Comparison: Portable chest dated September 12, 2016. No cross-sectional imaging of the abdomen or pelvis for comparison. Findings: A low midline abdominal wall incision extends from the umbilicus to the suprapubic distribu tion. Skin susan are in place. Amorphous fluid and gas resides in the subcutaneous fat deep to the skin susan and superficial to the abdominal wall musculature. The gas and fluid measures 2.5 x 2.8 cm in the axial plane x 8 cm craniocaudal. A surgical drain courses through the low pelvis from the entrance site along the right lateral abdomi nal wall. No residual fluid collection is present within the peritoneal space or along the course of the surgical drain. Trace edema and trace free fluid resides in the low pelvis/presacral space. The bowel pattern is abnormal with several loops of mildly dilated fluid-filled small bowel and gaseo us transverse colon. The pattern suggests adynamic ileus rather than mechanical small bowel obstructi on. Gallstones and sludge reside dependently in the gallbladder lumen. No biliary dilation. The noncontra st liver, spleen, pancreas, and right adrenal gland are normal. A left adrenal gland nodule with a de nsity of 0 Hounsfield units measuring 2.6 x 1.5 cm either represents a benign adrenal adenoma or old liquefied adrenal hemorrhage. An exophytic mass versus proteinaceous cyst emanating off the body of the right kidney has a density of 20 Hounsfield units. A well-circumscribed fluid attenuation 3.5 cm cyst emanates off the posterior pole inferior right kidney. A 1 cm cyst with density of 2 Hounsfield units emanates off the inferior pole left kidney. No nephrolithiasis or hydroureteronephrosis. The urinary bladder is decompressed a nd contains a Roger catheter balloon. The prostate gland is enlarged. Heart size is normal with extensive calcified coronary plaque. Trace pericardial effusion. The abdomi nal aorta is normal in caliber with moderate calcified plaque. Small to moderate bilateral pleural effusions accompanied by bibasilar compressive atelectasis. No fr acture or bone lesions. Impression: 1. Small subcutaneous fluid collection deep to the skin staple line in the anterior abdominal wall. N o communication with the intraperitoneal space. 2. No discernible intraperitoneal fluid collection/abscess. 3. Surgical drain remains in the pelvis. No residual fluid collection along the drain. 4. Mild adynamic ileus. 5. Small to moderate bilateral pleural effusions and compressive atelectasis. 6. Gallbladder sludge and cholelithiasis. 7. 2 cm right renal mass versus proteinaceous cyst. Recommend targeted renal ultrasound to optimally characterize. A Follow-Up Required test result notification was sent via the [employer] service, 4:04:04 PM, 09/13/2016, [employer] Message ID [id number].
[2016-09-13] MEDS: HEPARIN/DEXTROSE 500 ML IV SCH (19:50)
[2016-09-14] MEDS: IPRATROPIUM/ALBUTEROL 3 ML DEYVIAL IH SCH ×5 (00:11→18:00)
[2016-09-14] MEDS: D5W 1/2 NS 1,000 ML IV SCH ×2 (04:34→13:50)
--- NOTE | 2016-09-14 05:58 | SOAPPROG ---
DENIS Progress Note Assessment/Plan: Assessment: 89yo male s/p colon resection, Marquez's, for sigmoid mass, bleeding. Now with delerium. Tolerating regular diet per family, pt more confused over last couple days, recent CT head negative PE confused, in chair abdomen stapled low midline incision clean and dry, soft, no signs of tenderness to palpation, ostomy pink Plan: no new orders at this time will discuss with Dr Cortes 09/11/16 12:42 09/13/16 09:06 still very confused, noncommunicative, has sitter PE confused, awake abdomen colostomy in place, abdomen soft, incision without any erythema or signs of discharge Plan saw with Dr Deutsch no new orders at this time path reviewed 09/14/16 05:54 eating very small amount of regular food with aide. cooperative according to nursing. PE Had CT abdomen yesterday which appears grossly normal, no fluid collection, none around drain. Still confused although family reported yesterday maybe small improvement. PE confused but follows some simple commands Colostomy in place, soft, stapled lower midline incision with very tiny amount of serosag discharge over lower part of stapled incision, soft to palpation, JOSIANE with serous fluid Plan confusion does seem slightly improved as patient responding to some simple commands will continue to monitor lower part of incisions will discuss with Dr Joseph 09/14/16 09:49 09/14/16 09:51 Objective: Vital Signs Temp Pulse Resp BP Pulse Ox 36.6 C 88 15 123/84 H 93 09/14/16 05:14 09/14/16 05:14 09/14/16 05:14 09/14/16 05:14 09/14/16 05:14 Laboratory Results 09/13/16 04:30 09/13/16 04:30 09/12/16 09/13/16 09/14/16 05:59 05:59 05:59 Intake Total 188 1200 1600 Output Total 1220 1460 1190 Balance -1032 -260 410 PT 15.9 SEC (12.0-15.0) H 09/12/16 16:30 INR 1.27 (0.83-1.16) H 09/12/16 16:30 ICD10 Worksheet Patient Problems: Problems Problem Status Diagnosed Acute blood loss anemia Acute GI bleed Acute Orthostatic hypotension Acute Cellulitis Acute
[2016-09-14] MEDS: PIPERACILLIN/TAZO 2.25 GM/DEX 50 ML IV SCH ×3 (06:01→21:03)
[2016-09-14 06:05] LABS: % IMMATURE GRANULYOCYTES 0.6 % (0.0-1.1); ABSOLUTE IMMATURE GRANULOCYTES 0.06 10^3/uL (0.00-0.10); ADD DIFF? NO; ADD MORPH? NO; ADD SCAN? NO; ATYPICAL LYMPHOCYTE FLAG 0 (0-99); FRAGMENT RBC FLAG 20 (0-99); HEMATOCRIT 22.6 % (40.0-51.0); HEMOGLOBIN 7.4 g/dL (13.7-17.5); LEFT SHIFT FLG 0 (0-99); LIPEMIA HEMOLYSIS FLAG 80 (0-99); MEAN CELL HEMOGLOBIN CONCENTR. 32.7 g/dL (32.4-36.7); MEAN CELL VOLUME 85.6 fL (81.5-99.8); MEAN PLATELET VOLUME 9.9 fL (8.7-11.7); PLATELET CLUMPS FLAG 0 (0-99); PLATELET COUNT 235 10^3/uL (150-400); RED BLOOD CELL COUNT 2.64 10^6/uL (4.40-6.38); RED CELL DISTRIBUTION WIDTH 17.5 % (11.5-15.2)
[2016-09-14 06:32] LABS: ANION GAP 8 mEq/L (8-16); CALCIUM 8.3 mg/dL (8.5-10.4); CARBON DIOXIDE 17 mEq/l (22-31); CHLORIDE 118 mEq/L (97-110); CREATININE 2.6 mg/dL (0.7-1.3); GLOMERULAR FILTRATION RATE 23; GLUCOSE 84 mg/dL (70-100); POTASSIUM 3.8 mEq/L (3.5-5.2); SODIUM 143 mEq/L (134-144)
[2016-09-14] MEDS: guaiFENesin 600 MG TAB.ER PO SCH ×2 (09:05→21:02)
[2016-09-14] MEDS: PANTOPRAZOLE SODIUM 40 MG in NS 100 ML IV SCH ×2 (09:05→22:07)
--- NOTE | 2016-09-14 10:21 | SOAPPROG ---
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- suspect post-op ATN - Cr slowly improving, back to baseline mid-2 region -on IVF- will decrease rate with plans to try and taper off as po intake improves (discussed with RN) -u/s neg for obstruction 2)Colon perforation with abscess- Klebsiella in culture -on zosyn 3)Adenocarcinoma colon s/p resection -surgery following 4)PICC associated DVT- on heparin gtt 5)Delirium- overall better per family but still not at baseline -defer to hospitalist for [employer] imaging, neuro eval 6)anemia of acute blood loss from GI bleed/ CKD -no MARY given malignancy -Hb stable -check iron stores- hold on repletion until infection resolves -transfuse if Hb < 7 7)hypernatremia -Na improving on D51/2 NS, will decrease rate of fluids 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 Not eating much- thinks did a bit better eating yesterday. Cr stable. Not able to answer my questions so discussed with RN and family. Objective: Vital Signs Temp Pulse Resp BP Pulse Ox 36.6 C 82 16 121/59 H 95 09/14/16 07:33 09/14/16 07:33 09/14/16 07:33 09/14/16 07:33 09/14/16 07:33 Laboratory Results 09/14/16 05:50 09/14/16 05:50 09/13/16 09/14/16 09/15/16 05:59 05:59 05:59 Intake Total 1200 1600 100 Output Total 1460 1190 310 Balance -260 410 -210 PT 15.9 SEC (12.0-15.0) H 09/12/16 16:30 INR 1.27 (0.83-1.16) H 09/12/16 16:30 Physical Exam - Physical Exam General Appearance: other (awake, restless, mumbling) EENT: other (mmm) Respiratory: other (upper airway gurgling) Cardiac/Chest: regular rate, rhythm Extremities: other (trace LE edema bilat) Neuro/Psych: other (confused, restless) ICD10 Worksheet Patient Problems: Problems Problem Status Diagnosed Acute blood loss anemia Acute GI bleed Acute Orthostatic hypotension Acute Cellulitis Acute
--- NOTE | 2016-09-14 11:05 | HOSPPROG ---
Hospitalist Progress Note Assessment/Plan: ASSESSMENT/PLAN: # encephalopathy d/t delirium - multifactorial; do not suspect any primary neurologic disorder - nonpharmacologic measures, treat underlying pathology, minimize medications - would not tolerate MRI now - would consider neuro consult if not improving # UE PICC associated DVT - will dc picc today - cont heparin gtt today - check RUE US - if negative would dc heparin gtt - there is no clear evidence to anticoagulate a brachial v. thrombus once catheter has been removed - place PICC in LUE tomorrow # hypernatremia - resolved with 1/2 NS # dysphagia/aspiration - due to delirium - passed swallow screen today - diet started # urinary retention with Head - will dc head today and follow urine output # colon perforation with abscess (e. coli, kleb pna) status post colostomy - slight oozing from incision - check CT non-con today - invanz stopped d/t concern for contribution to delirium - currently on zosyn, also better coverage for enterococcus # lower GI bleed due to adenocarcinoma # adenocarcinoma - not a chemo candidate at this point # renal mass - will eventually need a dedicated renal US # acute blood loss anemia status post 2 units of packed red blood cells d/t GI bleed - stable on heparin gtt # acute on chronic renal failure - slowly improving # hypoglycemia - add D5 to fluids # hyperkalemia, better today # gout - hold pred # FCFT # SQH SUBJECTIVE: confusion continues OBJECTIVE: Vitals reviewed appears uncomfortable; startled easily Regular rate and rhythm, no murmurs rubs or gallops No respiratory distress, lungs clear to auscultation bilaterally; no wheezes rales or rhonchi Abdomen with normal bowel sounds, soft, nontender, nondistended; incision with mild using in the inferior aspect, mild erythema LABORATORY DATA: reviewed IMAGING: MICROBIOLOGY: Klebsiella pneumoniae, E coli from abdominal aspirate Objective: Vital Signs Temp Pulse Resp BP Pulse Ox 36.6 C 82 16 121/59 H 95 09/14/16 07:33 09/14/16 07:33 09/14/16 07:33 09/14/16 07:33 09/14/16 07:33 Laboratory Results 09/14/16 05:50 09/14/16 05:50 09/13/16 09/14/16 09/15/16 05:59 05:59 05:59 Intake Total 1200 1600 100 Output Total 1460 1190 490 Balance -260 410 -390 PT 15.9 SEC (12.0-15.0) H 09/12/16 16:30 INR 1.27 (0.83-1.16) H 09/12/16 16:30 ICD10 Worksheet Patient Problems: Problems Problem Status Diagnosed Acute blood loss anemia Acute GI bleed Acute Orthostatic hypotension Acute Cellulitis Acute
--- NOTE | 2016-09-14 13:13 | PCMIDPN ---
[id number]: s/p wash out (09/05/16) - Currently on zosyn. Switched 09/12/16 for broadening and alternative therapy in the possible event that invanz was contributing to altered mental status -Ct abd/pelvis: no residual intra-abdominal abscess or intra-abdominal fluid collection noted. Subcutaneous fluid collection noted just below incision site. -Discussed with Dr. Joseph. Will likely get drained tomorrow. -Given no residual abscess, and ongoing issues with his mental status- recommended curtailing duration of antibiotics. -Today he is day#10. May consider stopping after today if remains stable. -Will reassess again tomorrow. -Discussed with patient's . Meds zosysn 2.25gm q8- 09/12/16---#10 overall of antibiotics. s/p invanz- 09/05-09/12--- Subjective: Afebrile. agitated still. wants to pull out head. beckie drain with serosanguinous drainage. Objective: Vital Signs Temp Pulse Resp BP Pulse Ox 36.6 C 82 16 121/59 H 95 09/14/16 07:33 09/14/16 07:33 09/14/16 07:33 09/14/16 07:33 09/14/16 07:33 Laboratory Results 09/14/16 05:50 09/14/16 05:50 09/13/16 09/14/16 09/15/16 05:59 05:59 05:59 Intake Total 1200 1600 100 Output Total 1460 1190 490 Balance -260 410 -390 - Physical Exam General Appearance: alert, other (agitated) Respiratory: lungs clear Cardiac/Chest: regular rate, rhythm Extremities: No swelling Abdomen: normal bowel sounds, non-tender, soft, other (midline lower abd incision site. susan present. serosanguinous drainage noted. nontender. beckie drain with serosanguinous drainage.), No distended Male Genitalia: head ICD10 Worksheet Patient Problems: Problems Problem Status Diagnosed Acute blood loss anemia Acute GI bleed Acute Orthostatic hypotension Acute Cellulitis Acute
[2016-09-14 17:13] LABS: % IMMATURE GRANULYOCYTES 0.5 % (0.0-1.1); ABSOLUTE IMMATURE GRANULOCYTES 0.06 10^3/uL (0.00-0.10); ADD DIFF? NO; ADD MORPH? NO; ADD SCAN? NO; ATYPICAL LYMPHOCYTE FLAG 0 (0-99); FRAGMENT RBC FLAG 10 (0-99); HEMATOCRIT 24.9 % (40.0-51.0); HEMOGLOBIN 7.8 g/dL (13.7-17.5); LEFT SHIFT FLG 0 (0-99); LIPEMIA HEMOLYSIS FLAG 80 (0-99); MEAN CELL HEMOGLOBIN 27.7 pg (27.9-34.1); MEAN CELL HEMOGLOBIN CONCENTR. 31.3 g/dL (32.4-36.7); MEAN CELL VOLUME 88.3 fL (81.5-99.8); MEAN PLATELET VOLUME 10.4 fL (8.7-11.7); PLATELET CLUMPS FLAG 0 (0-99); PLATELET COUNT 228 10^3/uL (150-400); RED BLOOD CELL COUNT 2.82 10^6/uL (4.40-6.38); RED CELL DISTRIBUTION WIDTH 17.6 % (11.5-15.2)
--- NOTE | 2016-09-14 22:08 | SOAPPROG ---
SOAP Progress Note Assessment/Plan: Assessment: 89yo male s/p colon resection, Marquez's, for sigmoid mass, bleeding. Now with delerium. Tolerating regular diet per family, pt more confused over last couple days, recent CT head negative PE confused, in chair abdomen stapled low midline incision clean and dry, soft, no signs of tenderness to palpation, ostomy pink Plan: no new orders at this time will discuss with Dr Cortes 09/11/16 12:42 09/13/16 09:06 still very confused, noncommunicative, has sitter PE confused, awake abdomen colostomy in place, abdomen soft, incision without any erythema or signs of discharge Plan saw with Dr Deutsch no new orders at this time path reviewed 09/14/16 05:54 eating very small amount of regular food with aide. cooperative according to nursing. PE Had CT abdomen yesterday which appears grossly normal, no fluid collection, none around drain. Still confused although family reported yesterday maybe small improvement. PE confused but follows some simple commands Colostomy in place, soft, stapled lower midline incision with very tiny amount of serosag discharge over lower part of stapled incision, soft to palpation, JOSIANE with serous fluid Plan confusion does seem slightly improved as patient responding to some simple commands will continue to monitor lower part of incisions will discuss with Dr Joseph 09/14/16 09:49 09/14/16 09:51 09/14/16 22:03 called by nursing to evaluate increased swelling around stapled midline incision. Pt was noted to have bleeding from inferior portion of incision earlier this evening. Bleeding stopped, heparin has been held. Vital signs stable and recent HCT this evening unchanged. PE confused abdomen approx [id number] area of swelling around entire stapled incision, very soft, movable. Tiny amount of drainage from inferior portion of stapled incision. Plan may need OR drainage but can likely wait till AM, will make pt NPO and discuss with Dr Cortes in AM. will evaluate swelling again in 30min. Objective: Vital Signs Temp Pulse Resp BP Pulse Ox 36.9 C 91 18 116/84 H 94 09/14/16 16:36 09/14/16 16:36 09/14/16 16:36 09/14/16 16:36 09/14/16 16:36 Laboratory Results 09/14/16 16:55 09/14/16 05:50 09/13/16 09/14/16 09/15/16 05:59 05:59 05:59 Intake Total 1200 1600 1300 Output Total 1460 1190 710 Balance -260 410 590 PT 15.9 SEC (12.0-15.0) H 09/12/16 16:30 INR 1.27 (0.83-1.16) H 09/12/16 16:30 ICD10 Worksheet Patient Problems: Problems Problem Status Diagnosed Acute blood loss anemia Acute GI bleed Acute Orthostatic hypotension Acute Cellulitis Acute
[2016-09-15] MEDS: IPRATROPIUM/ALBUTEROL 3 ML DEYVIAL IH SCH ×4 (00:06→15:05)
[2016-09-15] MEDS: D5W 1/2 NS 1,000 ML IV SCH (04:58)
[2016-09-15 05:17] LABS: % IMMATURE GRANULYOCYTES 0.6 % (0.0-1.1); ABSOLUTE IMMATURE GRANULOCYTES 0.06 10^3/uL (0.00-0.10); ADD DIFF? NO; ADD MORPH? NO; ADD SCAN? NO; ATYPICAL LYMPHOCYTE FLAG 0 (0-99); FRAGMENT RBC FLAG 20 (0-99); HEMATOCRIT 21.9 % (40.0-51.0); HEMOGLOBIN 7.2 g/dL (13.7-17.5); LEFT SHIFT FLG 0 (0-99); LIPEMIA HEMOLYSIS FLAG 80 (0-99); MEAN CELL HEMOGLOBIN 28.1 pg (27.9-34.1); MEAN CELL HEMOGLOBIN CONCENTR. 32.9 g/dL (32.4-36.7); MEAN CELL VOLUME 85.5 fL (81.5-99.8); MEAN PLATELET VOLUME 10.4 fL (8.7-11.7); PLATELET CLUMPS FLAG 0 (0-99); PLATELET COUNT 216 10^3/uL (150-400); RED BLOOD CELL COUNT 2.56 10^6/uL (4.40-6.38); RED CELL DISTRIBUTION WIDTH 17.4 % (11.5-15.2)
[2016-09-15 05:33] LABS: ALBUMIN 1.8 g/dL (3.5-5.0); ANION GAP 8 mEq/L (8-16); CALCIUM 8.2 mg/dL (8.5-10.4); CARBON DIOXIDE 16 mEq/l (22-31); CHLORIDE 118 mEq/L (97-110); CREATININE 2.6 mg/dL (0.7-1.3); GLOMERULAR FILTRATION RATE 23; GLUCOSE 70 mg/dL (70-100); SODIUM 142 mEq/L (134-144)
[2016-09-15] MEDS: PIPERACILLIN/TAZO 2.25 GM/DEX 50 ML IV SCH ×2 (05:55→14:56)
[2016-09-15 06:34] LABS: INR 1.59 (0.83-1.16)
[2016-09-15] MEDS ORDERED: BUPIVACAINE 0.5% 30 ML SDV ONE (07:24)
[2016-09-15] MEDS ORDERED: PHYTONADIONE 5 MG in NS 50 ML IV ONE (07:51)
[2016-09-15] MEDS ORDERED: THROMBIN (RECOMBINANT) 20,000 UNIT SPRAY TP ONE (08:25)
--- NOTE | 2016-09-15 08:34 | HOSPPROG ---
Hospitalist Progress Note Assessment/Plan: #Acute blood loss anemia -mod-size hematoma in OR today. Needed fascial closing -1 unit RBC periop, serial H/H -hold anticoagulation #Acute hypoxic resp failure -post-op. Paralytics reversed -suspect due to meds, anemia -trial Bipap, stat ABG, CXR. #Perforated rectosigmoid mass with abscess -s/p Matt -Klebsiella, E coli on culture. Blood cx NGTD -today is Day 11 of abx. No e/o abscess in OR today. Will stop Zosyn and monitor #Sigmoid adenocarcinoma: 2/ resection #Acute encephalopathy -multifactorial #Leukocytosis -resolved #Gout: cont pred #Acute on CKD -now resolved; Cr at baseline 2.6 #Diet: clears #DVT px: SCDs #Disp: warrants transfer to ICU resp failure and possible intubation Time spent on visit: 75 min in which 45 min were critical care time: 30 min bedside, 15 min reviewing data and 30 min with family discussing plan of care Subjective: s/p fascial defect repair this morning. O2 sats in 30s after OR Objective: Vital Signs Temp Pulse Resp BP Pulse Ox 36.9 C 85 20 118/71 95 09/14/16 23:43 09/15/16 06:03 09/15/16 06:03 09/14/16 23:43 09/15/16 06:03 Laboratory Results 09/15/16 05:00 09/15/16 05:00 09/14/16 09/15/16 09/16/16 05:59 05:59 05:59 Intake Total 1600 1300 Output Total 1190 845 Balance 410 455 PT 19.0 SEC (12.0-15.0) H 09/15/16 05:50 INR 1.59 (0.83-1.16) H 09/15/16 05:50 - Physical Exam Constitutional: uncomfortable, other (somnolent) Eyes: PERRL Ears, Nose, Mouth, Throat: dry mucous membranes, other (Bipap mask in place) Cardiovascular: regular rate and rhythym Respiratory: no respiratory distress Gastrointestinal: normoactive bowel sounds, other (surgical incision C/D/I) Genitourinary: head in urethra Skin: warm Neurologic: other (encephalopathic. Not following commands) ICD10 Worksheet Patient Problems: Problems Problem Status Diagnosed Acute blood loss anemia Acute GI bleed Acute Orthostatic hypotension Acute Cellulitis Acute
--- NOTE | 2016-09-15 08:51 | US ---
Ultrasound Venous Right Upper Extremity Clinical Indication: follow up right arm clot. Comparison September 12, 2016. Findings: Persistent areas of thrombosis are present in the upper brachial vein, the cephalic vein in the lower upper arm, and the cephalic vein in the forearm. The ulnar vein is small but patent. The u pper cephalic, basilic, axillary, subclavian, and jugular veins are patent. There was slightly more clot present in the cephalic and brachial veins on prior examination. Impression: Slightly improved but persistent clot in the brachial vein which is considered a deep vei n of the upper and superficial venous thrombosis of the cephalic vein.
[2016-09-15] MEDS ORDERED: fentaNYL 100 MCG/2 ML INJ ONE (09:09)
[2016-09-15] MEDS ORDERED: PROPOFOL 200 MG/20 ML VIAL ONE (09:10)
[2016-09-15] MEDS ORDERED: ROCURONIUM 100 MG/10 ML VIAL ONE (09:14)
[2016-09-15] MEDS ORDERED: ONDANSETRON 4 MG/2 ML VIAL ONE (09:58)
[2016-09-15] MEDS ORDERED: DEXAMETHASONE 4 MG/ML VIAL ONE (09:58)
[2016-09-15] MEDS ORDERED: PHENYLEPHRINE HCL 100 MCG/ML SYR ONE (10:01)
[2016-09-15] MEDS ORDERED: SUGAMMADEX SODIUM 200 MG/2 ML VIAL IVP ONE ×2 (10:11→11:22)
--- NOTE | 2016-09-15 10:40 | SOAPPROG ---
SOAP Progress Note Assessment/Plan: Assessment:Plan: ARF on CRF-now resolved -had post-op ATN -creatinine peaked at 3.6 on 09/08/2016 -follow for recurrence Hyperkalemia-resolved -at high risk for recurrence given underlying CKD, GI blood loss, transfusion therapy CKD-baseline 2.5 -sees Dr. Cardoza as outpatient GI-bleeding from wound -was on heparin for UE DVT -back to OR today -Hct down to 21 09/15/16 10:46 Subjective: in OR Objective: Vital Signs Temp Pulse Resp BP Pulse Ox 36.9 C 85 20 118/71 95 09/14/16 23:43 09/15/16 06:03 09/15/16 06:03 09/14/16 23:43 09/15/16 06:03 Laboratory Results 09/15/16 05:00 09/15/16 05:00 09/14/16 09/15/16 09/16/16 05:59 05:59 05:59 Intake Total 1600 1300 Output Total 1190 845 Balance 410 455 PT 19.0 SEC (12.0-15.0) H 09/15/16 05:50 INR 1.59 (0.83-1.16) H 09/15/16 05:50 ICD10 Worksheet Patient Problems: Problems Problem Status Diagnosed Acute blood loss anemia Acute GI bleed Acute Orthostatic hypotension Acute Cellulitis Acute
[2016-09-15 12:23] LABS: APTT > 250.0 SEC (23.0-38.0)
[2016-09-15 12:31] LABS: BICARBONATE 14 mEq/L (22-26); MEASURED OXYGEN SATURATION 98 % (92-95); TCO2 15 mEq/L (23-27)
[2016-09-15 12:34] LABS: BASE EXCESS -13.7 mEq/L (-2.5-2.5); PCO2 42 mmHg (34-38); PO2 171 mmHg (65-75)
[2016-09-15 12:35] LABS: CPAP YES
[2016-09-15] MEDS ORDERED: NS 500 ML IV ONE (12:41)
[2016-09-15 13:02] LABS: HEMATOCRIT 30.3 % (40.0-51.0); HEMOGLOBIN 9.5 g/dL (13.7-17.5)
--- NOTE | 2016-09-15 14:15 | GOP ---
[f rep st] OPERATIVE REPORT DATE OF OPERATION: 09/15/2016 SURGEON: Tito Cortes MD BUTTON SAWYER: SADIQ Bryant ANESTHESIOLOGIST: Dr. Price PREOPERATIVE DIAGNOSIS: Wound hematoma and a fascial defect. POSTOPERATIVE DIAGNOSIS: same PROCEDURE PERFORMED: Wound exploration, evacuation of hematoma, and repair of a fascial defect. FINDINGS: Patient was found to have a large fluid collection in the subcutaneous tissue, which appeared to be old hematoma. He also had a 2 inch defect in his fascia. DESCRIPTION OF PROCEDURE: Patient taken to the operating room, where he received satisfactory general endotracheal anesthesia by Dr. Price. He was placed in the supine position, and prepped and draped in the usual sterile fashion. Skin susan were removed. His old incision was opened sharply. On entering the cavity, a large hematoma was evacuated down to the fascial level. The wound was irrigated. Hemostasis was assured. There was no active bleeding site. On palpation of the wound, there was an area of fascial defect. This was repaired with interrupted [id number] PDS sutures. Previous running suture was pulled up more tightly and incorporated in the suture repair as well. The wound was infiltrated with 0.5% Marcaine. Subcu was closed with 2-0 Vicryl and the skin with skin susan. The wound was dressed. He tolerated the procedure well, was taken to the recovery room in good condition. There were no complications. /[id number]/MODL MTDD
--- NOTE | 2016-09-15 14:45 | DX ---
Portable AP Semiupright Chest - September 15, 2016, at 12:38 p.m. Clinical History: 89-year-old male inpatient with hypoxia. Comparison Study: Chest, dated September 12, 2016. Findings: The patient is slightly rotated to the right. Oxygen tubing and telemetry monitoring lead l hong are present. There is a dual-lead left subclavian transvenous pacemaker, with the proximal lead in the right atrium and the distal lead in the right ventricle. Since the previous study, the right-s ided PICC line has been removed. The cardiac silhouette is at the upper limit of normal. There is mur al atherosclerotic calcification of the aortic knob. There is persistent left retrocardiac pleuropare nchymal consolidation, as well as some mild right basilar subsegmental atelectasis, as well as some d iscoid subsegmental atelectasis in the right perihilar distribution. The pulmonary vasculature is equ alized. There are more pronounced hypoventilatory changes than on the previous study. Air-filled loop s of small and large bowel are seen in the upper abdomen, and are incompletely imaged. Impression: 1. Compared to September 12, 2016 there are more pronounced hypoventilatory changes. 2. A component of congestive heart failure is suspected. 3. Persistent left retrocardiac pleuroparenchymal consolidation, with areas of mild subsegmental atel ectasis in the right mid and lower lung zones.
[2016-09-15] MEDS: guaiFENesin 600 MG TAB.ER PO SCH ×2 (14:55→22:25)
[2016-09-15] MEDS: PANTOPRAZOLE SODIUM 40 MG in NS 100 ML IV SCH ×2 (14:55→21:30)
[2016-09-15 15:05] LABS: BASE EXCESS -14.4 mEq/L (-2.5-2.5); BICARBONATE 14 mEq/L (22-26); MEASURED OXYGEN SATURATION 98 % (92-95); PCO2 46 mmHg (34-38); PO2 149 mmHg (65-75); TCO2 16 mEq/L (23-27)
[2016-09-15 15:06] LABS: CPAP YES; O2 CONCENTRATIION 60 % (0-100); P/F RATIO 248 RATIO; PATIENT RATE 13
[2016-09-15 15:07] LABS: INSP PRESSURE 10
[2016-09-15 16:58] LABS: BASE EXCESS -15.2 mEq/L (-2.5-2.5); BICARBONATE 15 mEq/L (22-26); MEASURED OXYGEN SATURATION 98 % (92-95); PCO2 54 mmHg (34-38); PO2 179 mmHg (65-75); TCO2 16 mEq/L (23-27)
[2016-09-15 16:59] LABS: BIPAP YES; EXP PRESSURE 5; INSP PRESSURE 15; O2 CONCENTRATIION 60 % (0-100); P/F RATIO 298 RATIO
[2016-09-15] MEDS ORDERED: PROPOFOL/EMULSION 1,000 MG/100 ML BOTTLE IV ONE (17:13)
[2016-09-15] MEDS ORDERED: fentanYL/NACL/100 ML BAG IV ONE (17:14)
[2016-09-15] MEDS ORDERED: LIDOCAINE 1% 30 ML SDV ONE (17:24)
[2016-09-15] MEDS ORDERED: LIDOCAINE 2% JELLY 5 ML TUBE ONE (17:25)
[2016-09-15] MEDS: PROPOFOL/EMULSION 100 ML IV SCH ×2 (17:30→23:19)
[2016-09-15] MEDS: fentaNYL/NACL 100 ML IV SCH (17:30)
[2016-09-15] MEDS ORDERED: MIDAZOLAM 2 MG/2 ML VIAL IVP ONE (18:02)
[2016-09-15] MEDS ORDERED: MIDAZOLAM 2 MG/2 ML VIAL ONE (18:04)
[2016-09-15] MEDS ORDERED: ALTEPLASE 2 MG VIAL IVP PRN (18:24)
[2016-09-15] MEDS ORDERED: ALBUMIN 5% 250 ML BOTTLE IV ONE (19:11)
[2016-09-15] MEDS ORDERED: ALBUMIN 5% 500 ML IV ONE (19:15)
[2016-09-15 19:29] LABS: BASE EXCESS -13.6 mEq/L (-2.5-2.5); BICARBONATE 12 mEq/L (22-26); MEASURED OXYGEN SATURATION 99 % (92-95); PCO2 27 mmHg (34-38); PO2 299 mmHg (65-75); TCO2 13 mEq/L (23-27)
[2016-09-15 19:31] LABS: END TIDAL CO2 21; O2 CONCENTRATIION 80 % (0-100); P/F RATIO 374 RATIO; SIMV YES
[2016-09-15 19:32] LABS: PATIENT RATE 16; PRESSURE SUPPORT 7
--- NOTE | 2016-09-15 19:58 | SOAPPROG ---
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 and anemia/ hct 25 abd soft wo masses or hernias risks and options fully discussed with pt and family who wish to proceed with surgery Plan: left colectomy in am/ may need colostomy 09/04/16 20:30 09/05/16 12:13 HCT SLIGHTLY LOWER/ ABD SOFT/ RISKS AND OPTIONS FULLY DISCUSSED AGAIN/ PROCEED WITH LAP COLECTOMY 09/09/16 17:12 afebrile/ wound ok/ ostomy ok/ small ostomy output/ path pending 09/10/16 09:34 CONFUSED/ POOR PO INTAKE/ OSTOMY OK/ AFEBRILE/ LABS STABLE 09/15/16 19:54 seen early this am/ large subincisional bulge with some old bloody drainage/ needs exploration and drainage of hematoma/ ? dehiscience risks and options fully discussed with / pt presently very agitated and delirious? Objective: Vital Signs Temp Pulse Resp BP Pulse Ox 36.1 C 74 21 H 84/44 L 100 09/15/16 13:45 09/15/16 19:00 09/15/16 19:00 09/15/16 19:00 09/15/16 19:00 Laboratory Results 09/15/16 12:46 09/15/16 05:00 09/14/16 09/15/16 09/16/16 05:59 05:59 05:59 Intake Total 1600 1300 1563 Output Total 1190 845 750 Balance 410 455 813 PT 19.0 SEC (12.0-15.0) H 09/15/16 05:50 INR 1.59 (0.83-1.16) H 09/15/16 05:50 ICD10 Worksheet Patient Problems: Problems Problem Status Diagnosed Acute blood loss anemia Acute GI bleed Acute Orthostatic hypotension Acute Cellulitis Acute
--- NOTE | 2016-09-15 20:02 | DX ---
Single view chest Indication: Evaluate line placement. Findings: Left-sided PICC terminates in the subclavian vein. It was not able to be advanced any furth er in. This adequate for central line access. Rest of the x-ray is unchanged from earlier today. Impression: Left-sided PICC intentionally terminates in the subclavian vein.
[2016-09-15 20:08] LABS: HEMATOCRIT 24.6 % (40.0-51.0); HEMOGLOBIN 7.6 g/dL (13.7-17.5)
[2016-09-15] MEDS ORDERED: NA BICARBONATE 50 MEQ/50 ML VIAL ONE (20:16)
[2016-09-15 20:35] LABS: ALBUMIN 1.8 g/dL (3.5-5.0); ANION GAP 12 mEq/L (8-16); CALCIUM 7.6 mg/dL (8.5-10.4); CARBON DIOXIDE 14 mEq/l (22-31); CHLORIDE 117 mEq/L (97-110); CREATININE 2.7 mg/dL (0.7-1.3); GLOMERULAR FILTRATION RATE 22; GLUCOSE 97 mg/dL (70-100); MAGNESIUM 1.1 mg/dL (1.6-2.3); POTASSIUM 4.4 mEq/L (3.5-5.2); SODIUM 143 mEq/L (134-144)
[2016-09-15] MEDS: SODIUM BICARBONATE 100 MEQ in D5W 1,000 ML IV SCH (20:53)
[2016-09-15] MEDS ORDERED: PROTOCOL CALCIUM 1 DOSE IV PRN (21:58)
[2016-09-15] MEDS ORDERED: PROTOCOL POTASSIUM 1 DOSE MISC PRN (21:58)
[2016-09-15] MEDS ORDERED: PROTOCOL MAGNESIUM 1 DOSE IV PRN (21:58)
[2016-09-15] MEDS ORDERED: MAGNESIUM SULF 2 GM/WATER 50 ML IV ONE (22:03)
[2016-09-15 22:34] LABS: BASE EXCESS -11.3 mEq/L (-2.5-2.5); BICARBONATE 14 mEq/L (22-26); MEASURED OXYGEN SATURATION 100 % (92-95); PCO2 29 mmHg (34-38); PO2 248 mmHg (65-75); TCO2 15 mEq/L (23-27)
[2016-09-15 22:36] LABS: END TIDAL CO2 22; O2 CONCENTRATIION 70 % (0-100); P/F RATIO 354 RATIO; PATIENT RATE 16; PRESSURE SUPPORT 7; SIMV YES
--- NOTE | 2016-09-15 22:50 | GCON ---
[f rep st] CONSULTATION DATE OF CONSULTATION: 09/15/2016 REASON FOR CONSULTATION: Acute respiratory failure. HISTORY: The patient is an 89-year-old who has been in the hospital since late August. He had a perforated sigmoid mass with abscess. 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 He returned to the operating room today for evacuation of a wound hematoma. This was accomplished. Postoperatively, he was difficult to get off the ventilator. He received standard medications for anesthesia, and in addition, 100 mcg of fentanyl. He was extubated to CPAP and returned to the intensive care unit where he was put on BiPAP. He demonstrated evidence of progressive acidosis and upper airway obstruction that was unresponsive to increasing levels of BiPAP. He was selectively intubated. This is dictated separately. RECENT MEDICAL HISTORY: Remarkable for the perforated rectosigmoid mass and adenocarcinoma of the sigmoid colon. His course has been complicated by confusion and encephalopathy that is felt to be toxic and metabolic in nature. He is being followed by infectious disease and surgery. He was recently taken off antibiotics as he had no further evidence of infection. He has chronic renal insufficiency, and has had a history of upper extremity DVTs, including during this hospitalization. CURRENT MEDICATIONS: DuoNeb, Tylenol, guaifenesin, p.r.n. morphine, and pantoprazole. On admission, he was on prednisone, lisinopril, Lasix, iron and omeprazole. ALLERGIES: None known. SOCIAL HISTORY: The patient is , with a supportive family. His is at the bedside. FAMILY HISTORY: Noncontributory. REVIEW OF SYSTEMS: Unobtainable. PHYSICAL EXAMINATION: GENERAL: Reveals an elderly gentleman, who pre- intubation was on BiPAP with obstruction of the upper airway despite BiPAP and sonorous respirations. With chin thrust, this upper airway obstruction would resolve. VITAL SIGNS: Blood pressure is approximately 90/50, heart rate 100 with sinus rhythm on the monitor. HEENT: Remarkable for dry mucous membranes. CHEST: Remarkable for decreased air movement. Sonorous respirations over the trachea. Breath sounds are difficult to appreciate at the bases. HEART: Regular in rate and rhythm. Tachycardic. Heart tones are distant. ABDOMEN: Postoperative, quiet. Tenderness is present. EXTREMITIES: Unremarkable for significant edema. Small bore peripheral catheters are in place. He has no central line currently. DATABASE: Chest x-ray shows increased hypoventilatory changes with possible congestive heart failure. Some basilar atelectasis is present but this is not marked. LABORATORY STUDIES: Arterial blood gas prior to intubation shows a pH of 7.06, pCO2 of 54, and pO2 of 179 on BiPAP. White blood cell count is 10,000, hematocrit 30. Basic metabolic panel earlier today showed sodium 142, potassium 4.0, CO2 of 15, BUN of 31 with a creatinine of 2.6, stable over the last 2 days. Albumin is 1.8, calcium and phosphorus are within normal limits, glucose 70. ASSESSMENT: 1. Acute respiratory failure. The patient was intubated and a bronchoscopy was done with sputum obtained. This is dictated separately. Respiratory failure appears primarily to be secondary to upper airway obstruction postoperatively; however, other etiologies such as heart failure, aspiration, etc., are possible. 2. Status post abdominal sepsis and perforation. 3. Confusion, multifactorial. Presumably toxic, metabolic. PLAN AND RECOMMENDATIONS: The patient will be kept in the intensive care unit. He will be supported on the ventilator. Propofol and Fentanyl will be given for sedation and pain management. Intravenous fluids will be given as needed. A new central line will be needed: a PICC line will be requested. Antibiotics will be held for now. Laboratory, chest x-ray and blood gas will all be followed. Further supportive care will be given based on his post intubation status. /[id number]/MODL MTDD
[2016-09-15] MEDS ORDERED: FUROSEMIDE 20 MG/2 ML VIAL ONE (23:10)
[2016-09-15] MEDS ORDERED: FUROSEMIDE 20 MG/2 ML VIAL IVP ONE (23:30)
[2016-09-16] MEDS: ALBUTEROL 60 PUFFS/8 GM MDI IH SCH ×6 (00:20→20:50)
[2016-09-16 00:47] LABS: POTASSIUM 3.9 mEq/L (3.5-5.2)
[2016-09-16 00:50] LABS: HEMOGLOBIN 8.6 g/dL (13.7-17.5)
--- NOTE | 2016-09-16 03:37 | GPN ---
[f rep st] PROCEDURE NOTE DATE OF PROCEDURE: 09/15/2016 PROCEDURE: Intubation. INDICATION: Acute hypercarbic respiratory failure. DESCRIPTION OF PROCEDURE: The procedure was done in the intensive care unit relatively urgently. In formed consent was obtained from the patient's . 2 mg of Versed were used for conscious sedation . 10 mL of 1% lidocaine was used for topical anesthesia. The fiberoptic bronchoscope was passed via bite block orally into the larynx. The vocal cords were i dentified and cannulated. A 7.5 endotracheal tube was slipped over the bronchoscope and into the low er trachea and left about 2 cm above the main rosalee. The bronchoscope was removed after good visual ization of the main rosalee and distal trachea, and the patient was stabilized and placed on the venti lator. IMPRESSION: Successful intubation. /[id number]/MODL
--- NOTE | 2016-09-16 03:42 | GPN ---
[f rep st] PROCEDURE NOTE DATE OF PROCEDURE: 09/15/2016 PROCEDURE: Bronchoscopy. INDICATION: Acute respiratory failure. PROCEDURE NOTE: The procedure followed the patient's intubation. No additional medications were given. The fiberoptic bronchoscope was passed via an adapter on the end of the patient's endotracheal tube and into the distal trachea. There were copious secretions, mainly whitish and loose, from the trachea and from the lower tracheobronchial tree bilaterally. These were removed with suction and lavage. Once cleared, no further secretions were noted. Cultures were obtained and sent. The patient tolerated the procedure well. There were no complications. Vital signs and oxygen saturations on the ventilator remained normal throughout. IMPRESSION: Large amount of loose secretions of unclear etiology, suspect retained secretions from surgery versus possible aspiration versus emerging pneumonia. /[id number]/MODL MTDD
[2016-09-16 04:28] LABS: BASE EXCESS -8.8 mEq/L (-2.5-2.5); BICARBONATE 15 mEq/L (22-26); IONIZED CALCIUM 1.23 MMOL/L (1.12-1.30); MEASURED OXYGEN SATURATION 99 % (92-95); PCO2 29 mmHg (34-38); PO2 140 mmHg (65-75); TCO2 16 mEq/L (23-27)
[2016-09-16 04:29] LABS: END TIDAL CO2 20; O2 CONCENTRATIION 40 % (0-100); P/F RATIO 350 RATIO; PATIENT RATE 16; PRESSURE SUPPORT 7; SIMV YES
[2016-09-16] MEDS: fentaNYL/NACL 100 ML IV SCH (05:05)
[2016-09-16] MEDS: SODIUM BICARBONATE 100 MEQ in D5W 1,000 ML IV SCH ×2 (05:39→16:16)
[2016-09-16 06:02] LABS: % IMMATURE GRANULYOCYTES 0.9 % (0.0-1.1); ABSOLUTE IMMATURE GRANULOCYTES 0.05 10^3/uL (0.00-0.10); ADD DIFF? NO; ADD MORPH? NO; ADD SCAN? NO; ATYPICAL LYMPHOCYTE FLAG 0 (0-99); FRAGMENT RBC FLAG 20 (0-99); HEMATOCRIT 26.3 % (40.0-51.0); HEMOGLOBIN 8.5 g/dL (13.7-17.5); LEFT SHIFT FLG 10 (0-99); LIPEMIA HEMOLYSIS FLAG 80 (0-99); MEAN CELL HEMOGLOBIN 27.5 pg (27.9-34.1); MEAN CELL HEMOGLOBIN CONCENTR. 32.3 g/dL (32.4-36.7); MEAN CELL VOLUME 85.1 fL (81.5-99.8); MEAN PLATELET VOLUME 9.9 fL (8.7-11.7); PLATELET CLUMPS FLAG 0 (0-99); PLATELET COUNT 160 10^3/uL (150-400); RED BLOOD CELL COUNT 3.09 10^6/uL (4.40-6.38); RED CELL DISTRIBUTION WIDTH 17.2 % (11.5-15.2)
[2016-09-16 06:21] LABS: ALBUMIN 1.9 g/dL (3.5-5.0); ANION GAP 10 mEq/L (8-16); CALCIUM 7.6 mg/dL (8.5-10.4); CARBON DIOXIDE 19 mEq/l (22-31); CHLORIDE 113 mEq/L (97-110); CREATININE 2.6 mg/dL (0.7-1.3); GLOMERULAR FILTRATION RATE 23; GLUCOSE 187 mg/dL (70-100); MAGNESIUM 1.8 mg/dL (1.6-2.3); POTASSIUM 3.5 mEq/L (3.5-5.2); SODIUM 142 mEq/L (134-144)
[2016-09-16] MEDS ORDERED: MAGNESIUM SULF 1 GM/DEXTROSE 100 ML IV ONE (06:22)
--- NOTE | 2016-09-16 08:05 | HOSPPROG ---
Hospitalist Progress Note Assessment/Plan: #Acute blood loss anemia -mod-size hematoma in OR today. Needed fascial closing -1 unit RBC periop (09/15). H/H stable today -hold anticoagulation #Acute hypercarbic resp failure -intubated. Will let rest on vent today; trial CPAP tomorrow #Metabolic acidosis -suspect driven by underlying CKD #Perforated rectosigmoid mass with abscess -s/p Matt -Klebsiella, E coli on culture. Blood cx NGTD -received 10 days of abx; stopped 09/15/16. Monitor #Sigmoid adenocarcinoma: 2/2 resection #Acute encephalopathy -following simple commands with me this morning. Will re-eval once extubated #Leukocytosis -resolved #CKD -Cr at baseline, but high-risk with blood loss, hypotension. IVFs. Monitor closely #Diet: clears #DVT px: SCDs #Disp: warrants ICU care with resp failure, intubation Objective: Vital Signs Temp Pulse Resp BP Pulse Ox 36.4 C 66 16 121/65 H 100 09/16/16 04:00 09/16/16 07:00 09/16/16 07:00 09/16/16 07:00 09/16/16 07:00 Laboratory Results 09/16/16 05:40 09/16/16 05:40 09/15/16 09/16/16 09/17/16 05:59 05:59 05:59 Intake Total 1300 4433 Output Total 845 2040 Balance 455 2393 PT 19.0 SEC (12.0-15.0) H 09/15/16 05:50 INR 1.59 (0.83-1.16) H 09/15/16 05:50 - Physical Exam Constitutional: no apparent distress Eyes: PERRL Ears, Nose, Mouth, Throat: moist mucous membranes, other (ETT in place) Cardiovascular: regular rate and rhythym, no murmur, rub, or gallop Respiratory: no respiratory distress, no rales or rhonchi Gastrointestinal: normoactive bowel sounds, soft, non-tender abdomen, other ( surgical incisions dressed, C/D/I) Skin: warm Musculoskeletal: other (swelling RUE, PICC in LUE) Neurologic: other (while give thumbs up and open eyes to command) ICD10 Worksheet Patient Problems: Problems Problem Status Diagnosed Acute blood loss anemia Acute GI bleed Acute Orthostatic hypotension Acute Cellulitis Acute
[2016-09-16] MEDS: guaiFENesin 600 MG TAB.ER PO SCH ×2 (09:08→19:37)
--- NOTE | 2016-09-16 09:19 | DX ---
Portable Chest, Single View September 16, 2016 6:19 a.m. Indication: Follow up pulmonary status. In-patient. Comparison: Portable chest, September 15, 2016. Findings: A new esophagogastric tube has been placed. The tip and sideport overlie the stomach. The E T tube, left anterior chest wall dual-lead pacemaker, borderline cardiomegaly, small bilateral pleura l effusions, and minimal bibasilar compressive atelectasis are unchanged. Impression: 1. New well-positioned esophagogastric tube. 2. Bibasilar atelectasis and small bilateral pleural effusions, unchanged.
--- NOTE | 2016-09-16 09:26 | PCMIDPN ---
Assessment/Plan: Assessment/Plan: 1. Polymicrobial Intraabdominal abscess with peritonitis secondary to rectosigmoid mass with perforation: s/p wash out (09/05/16) - s/p invanz followed by marcelosyn. -Ct abd/pelvis done on 09/13/16: no residual intra-abdominal abscess or intra- abdominal fluid collection noted. Subcutaneous fluid collection noted just below incision site. This hematoma was washed out on 09/15/16 -Completed #10 days of broad antibiotics for above with no residual intra- abdominal abscess present. -Will observe off antibiotics for now. 2. Acute respiratory failure: -s/p Bronch. cultures in progress. -Discussed findings of Bronch with Dr. Aguilar. Initial secretions but no significant secretions thereafter. -Not clear if aspirated. -Will closely follow clinically and cultures to determine if has ongoing needs for antibiotics. -care coordinated with guidance counselor and hospitalist team and RN. Meds off antibiotics now. s/p invanz- (09/05-09/12-); zosyn from 09/12-09/15/16--completed #10 days of therapy Subjective: Afebrile. Events of yesterday noted. s/p wash out of hematoma. Resp issues post op, on bipap initially but ultimately required to be intubated. Bronch eval noted and discussed with Dr. Aguilar. Some secretions intially but none thereafter. Currently in icu, sedated, intubated. Objective: Vital Signs Temp Pulse Resp BP Pulse Ox 34.4 C L 66 16 98/65 L 100 09/16/16 09:00 09/16/16 09:00 09/16/16 09:00 09/16/16 09:00 09/16/16 09:00 Laboratory Results 09/16/16 05:40 09/16/16 05:40 09/15/16 09/16/16 09/17/16 05:59 05:59 05:59 Intake Total 1300 4433 Output Total 845 2040 Balance 455 4383 - Physical Exam General Appearance: other (intubated , sedated in icu) EENT: ET Tube Respiratory: other (mild course bs) Cardiac/Chest: regular rate, rhythm Extremities: No swelling Abdomen: normal bowel sounds, soft, other (post op dressing noted in lower abdomen. ) Male Genitalia: head Skin: other (small skin tear on right wrist. clean. no surrounding erythema) ICD10 Worksheet Patient Problems: Problems Problem Status Diagnosed Acute blood loss anemia Acute GI bleed Acute Orthostatic hypotension Acute Cellulitis Acute
[2016-09-16] MEDS: PANTOPRAZOLE SODIUM 40 MG in NS 100 ML IV SCH ×2 (09:38→20:14)
[2016-09-16] MEDS: POTASSIUM Cl (KCl) 50 ML IV SCH ×6 (10:00→17:55)
[2016-09-16] MEDS ORDERED: ALBUMIN 5% 500 ML IV ONE (12:53)
[2016-09-16] MEDS ORDERED: ALBUMIN 5% 500 ML BOTTLE IV ONE (12:54)
--- NOTE | 2016-09-16 13:21 | PDINTPN ---
Prospecting Driller Helper Progress Note Assessment/Plan: Assessment: Acute respiratory failure. Intubated yesterday secondary in part to upper airway obstruction. Modest secretions. Stable on ventilator. Cultures pending. Metabolic acidosis. Reason for this is somewhat unclear. Has been acidotic since admission. On a bicarb drip. Hypotension: Multifactorial. Secondary to medications, anemia, volume status, chronic illness/albumin, etc. Doubt recurrent abdominal sepsis but monitoring for this. Colon cancer, status post resection. Status post abdominal perforation/abscess. Stable. Off antibiotics. Id following Wound hematoma: Status post I and D yesterday. No definite evidence of infection. Abnormal mental status. Multifactorial, toxic metabolic primarily. Appears to be somewhat better today but sedated, on the ventilator. Acute blood-loss anemia: Status post 2 units of blood since surgery yesterday. Hematocrit 26 currently. Following H&H. DVT prophylaxis: SCDs. Not on anticoagulation secondary to recent bleeding. GI prophylaxis: On pantoprazole twice daily. Plan: Ventilatory support will be maintained. No weaning will be attempted today. Chest x-ray and blood gas will be followed along with laboratory. Serial hematocrits have been ordered. Appropriate sedation pain control is on the ventilator will be maintained. A bicarbonate drip will be continued for now. Blood pressure will be followed and supported with pressors orders if needed. Albumin will be given at this time, possibly more blood if needed. Cultures will be awaited. All the above was discussed with the patient's family, respiratory, nursing, and the ICU multi disciplinary team. 45 minutes of critical care time was spent directly with the patient. Subjective: Sedated, arouses weekly. On ventilator. Appears comfortable Objective: Vital Signs Temp Pulse Resp BP Pulse Ox 35.1 C L 66 16 83/65 L 100 09/16/16 11:00 09/16/16 12:15 09/16/16 11:00 09/16/16 11:00 09/16/16 12:15 Microbiology 09/15/16 19:06 Gram Stain - Final Lung Bilateral - Bronchial Washings Laboratory Results 09/16/16 05:40 09/16/16 05:40 09/15/16 09/16/16 09/17/16 05:59 05:59 05:59 Intake Total 1300 4433 Output Total 845 2040 Balance 455 2393 PT 19.0 SEC (12.0-15.0) H 09/15/16 05:50 INR 1.59 (0.83-1.16) H 09/15/16 05:50 Laboratory Tests 09/16/16 09/16/16 04:15 05:40 pCO2 29 L pO2 140 H D Total CO2 16 L ABG pH 7.35 O2 Concentration % 40 Actual Respiration Rate 16 SIMV YES Tidal Volume 550 PEEP 5 Pressure Support 7 Calcium 7.6 L Phosphorus 4.9 H Magnesium 1.8 Albumin 1.9 L CXR: Minimal bibasilar atelectasis, small effusion on left. Lines and tubes in good position ICD10 Worksheet Patient Problems: Problems Problem Status Diagnosed Acute blood loss anemia Acute GI bleed Acute Orthostatic hypotension Acute Cellulitis Acute
[2016-09-16 13:56] LABS: HEMATOCRIT 23.8 % (40.0-51.0)
--- NOTE | 2016-09-16 14:20 | SOAPPROG ---
SOAP Progress Note Assessment/Plan: Assessment:Plan: ARF on CRF-initially resolved -had post-op ATN after colon resection with colostomy and aníbal's pouch on 09/05/2016 -creatinine peaked at 3.6 on 09/08/2016 -stable at 2.6 today after repeat trip to OR 09/15/16 -follow for recurrence of ARF/ATN -now hypotensive and oliguric -getting IVF resuscitation per Dr. Baker -repeat H/H pending -transfuse if needed Hyperkalemia-resolved -at high risk for recurrence given underlying CKD, GI blood loss, transfusion therapy CKD-baseline 2.5 -sees Dr. Cardoza as outpatient GI-had bleeding from wound -was on heparin for UE DVT -back to OR yesterday -had evacuation of hematoma and repair of fascial defect -Hct down to 23 today 09/16/16 14:20 Subjective: sedated hypotensive on vent Objective: Vital Signs Temp Pulse Resp BP Pulse Ox 35.9 C L 65 16 91/52 L 100 09/16/16 13:41 09/16/16 13:41 09/16/16 13:41 09/16/16 13:41 09/16/16 13:41 Microbiology 09/15/16 19:06 Gram Stain - Final Lung Bilateral - Bronchial Washings Laboratory Results 09/16/16 13:40 09/15/16 09/16/16 09/17/16 05:59 05:59 05:59 Intake Total 1300 4433 Output Total 845 2040 Balance 455 2393 PT 19.0 SEC (12.0-15.0) H 09/15/16 05:50 INR 1.59 (0.83-1.16) H 09/15/16 05:50 Physical Exam - Physical Exam General Appearance: no apparent distress, obtunded, thin EENT: ET tube Neck: normal inspection Respiratory: other (coarse breath sounds) Cardiac/Chest: regular rate, rhythm Abdomen: No normal bowel sounds Extremities: swelling (unchanged) ICD10 Worksheet Patient Problems: Problems Problem Status Diagnosed Acute blood loss anemia Acute GI bleed Acute Orthostatic hypotension Acute Cellulitis Acute
[2016-09-16 14:43] LABS: POTASSIUM 3.4 mEq/L (3.5-5.2)
--- NOTE | 2016-09-16 15:09 | SOAPPROG ---
SOAP Progress Note Assessment/Plan: Assessment/Plan: 89 Y M c obstructing perforated colon CA s/p low anterior colectomy c Matt pouch and end colostomy, drainage of abdominal abscess; s/ p drainage of hematoma and possible early wound dehiscence repair. Ileus. No ostomy output yet. Rare bowel sounds. Wounds clean, min drainage. Acute respiratory failure. On vent. Polymicrobial abscess. ID following. No new orders. 09/16/16 15:12 Subjective: Sedated on vent. Some reaction to pain--when taking off bandages. Objective: Vital Signs Temp Pulse Resp BP Pulse Ox 35.9 C L 65 16 91/52 L 100 09/16/16 13:41 09/16/16 13:41 09/16/16 13:41 09/16/16 13:41 09/16/16 13:41 Microbiology 09/15/16 19:06 Gram Stain - Final Lung Bilateral - Bronchial Washings Laboratory Results 09/16/16 13:40 09/16/16 13:40 09/15/16 09/16/16 09/17/16 05:59 05:59 05:59 Intake Total 1300 4433 Output Total 845 2040 Balance 455 2393 PT 19.0 SEC (12.0-15.0) H 09/15/16 05:50 INR 1.59 (0.83-1.16) H 09/15/16 05:50 sedated, on vent abd soft inc min serosanguinous drainage, no erythema. ostomy pink, no output ICD10 Worksheet Patient Problems: Problems Problem Status Diagnosed Acute blood loss anemia Acute GI bleed Acute Orthostatic hypotension Acute Cellulitis Acute
[2016-09-16] MEDS: PROPOFOL/EMULSION 100 ML IV SCH (16:16)
[2016-09-17] MEDS: ALBUTEROL 60 PUFFS/8 GM MDI IH SCH ×6 (00:43→20:50)
[2016-09-17 00:58] LABS: POTASSIUM 3.4 mEq/L (3.5-5.2)
[2016-09-17] MEDS ORDERED: POTASSIUM Cl (KCl) 50 ML IV SCH (01:30)
[2016-09-17] MEDS: PROPOFOL/EMULSION 100 ML IV SCH (01:48)
[2016-09-17] MEDS: POTASSIUM Cl (KCl) 100 ML IV SCH ×3 (01:48→04:00)
[2016-09-17] MEDS: fentaNYL/NACL 100 ML IV SCH ×2 (03:05→20:53)
[2016-09-17 04:00] LABS: BASE EXCESS -2.5 mEq/L (-2.5-2.5); BICARBONATE 20 mEq/L (22-26); MEASURED OXYGEN SATURATION 98 % (92-95); PCO2 28 mmHg (34-38); PO2 102 mmHg (65-75); TCO2 21 mEq/L (23-27)
[2016-09-17 04:01] LABS: END TIDAL CO2 23; O2 CONCENTRATIION 40 % (0-100); P/F RATIO 255 RATIO; PATIENT RATE 16; PRESSURE SUPPORT 7; SIMV YES
[2016-09-17 05:13] LABS: IONIZED CALCIUM 1.17 MMOL/L (1.12-1.30)
[2016-09-17 05:14] LABS: % IMMATURE GRANULYOCYTES 0.4 % (0.0-1.1); ABSOLUTE IMMATURE GRANULOCYTES 0.04 10^3/uL (0.00-0.10); ADD DIFF? NO; ADD MORPH? NO; ADD SCAN? NO; ATYPICAL LYMPHOCYTE FLAG 0 (0-99); FRAGMENT RBC FLAG 20 (0-99); HEMATOCRIT 31.8 % (40.0-51.0); HEMOGLOBIN 10.6 g/dL (13.7-17.5); LEFT SHIFT FLG 0 (0-99); LIPEMIA HEMOLYSIS FLAG 80 (0-99); MEAN CELL HEMOGLOBIN 27.7 pg (27.9-34.1); MEAN CELL HEMOGLOBIN CONCENTR. 33.3 g/dL (32.4-36.7); MEAN CELL VOLUME 83.2 fL (81.5-99.8); PLATELET CLUMPS FLAG 0 (0-99); PLATELET COUNT 193 10^3/uL (150-400); RED BLOOD CELL COUNT 3.82 10^6/uL (4.40-6.38)
[2016-09-17 05:26] LABS: INR 1.18 (0.83-1.16)
[2016-09-17 05:27] LABS: APTT 30.3 SEC (23.0-38.0)
[2016-09-17 05:30] LABS: ALANINE AMINOTRANSFERASE 29 IU/L (21-72); ALBUMIN 2.2 g/dL (3.5-5.0); ALKALINE PHOSPHATASE 52 IU/L (38-126); ANION GAP 7 mEq/L (8-16); ASPARTATE AMINOTRANSFERASE 15 IU/L (17-59); CALCIUM 7.7 mg/dL (8.5-10.4); CARBON DIOXIDE 23 mEq/l (22-31); CHLORIDE 108 mEq/L (97-110); CREATININE 2.5 mg/dL (0.7-1.3); GLOMERULAR FILTRATION RATE 24; GLUCOSE 112 mg/dL (70-100); MAGNESIUM 1.8 mg/dL (1.6-2.3); POTASSIUM 3.7 mEq/L (3.5-5.2); SODIUM 138 mEq/L (134-144)
--- NOTE | 2016-09-17 08:14 | IR ---
Imaging Guided Peripherally Inserted Central Catheter History: Central access for pressors. Right-sided PICC was pulled yesterday because of right upper e xtremity DVT. Patient has known left-sided pacemaker leads. Left side was chosen today despite of la t. Prophylactic Antibiotic: Cefazolin was not ordered and administered for antimicrobial prophylaxis be cause it was not medically necessary for this procedure. VTE Prophylaxis: There is not an order for VTE prophylaxis to be given within 24 hours after procedu re end time because it was not medically necessary for this procedure. Crosscutting Measure: Patient's current list of medications including all known prescriptions, over- the-counters, herbals, and vitamin/mineral/dietary supplements are reviewed. Medications' name, dosa ge, frequency, and route of administration are confirmed. patient is a non-smoker. Technique: This procedure is performed at patient's bedside. No fluoroscopy was utilized. Following i nformed consent, the left arm was prepped and draped in sterile fashion. 1% Xylocaine was used for lo concepcion anesthetic. All elements of maximal sterile barrier technique including cap, mask, sterile gown , sterile gloves, large sterile sheet, hand hygiene, and 2% chlorhexidine for cutaneous antisepsis, f ollowed. Ultrasound evaluation of potential access site was performed. After successfully identifying a patent vessel, ultrasound guidance was used to puncture the vein. A permanent recording was created for the patient's record. Ultrasound transducer was placed in sterile sleeve and used for real-time imaging guidance over steri le gel to enter the brachial vein. 0.018 measuring wire was passed centrally. A skin aisha with scalpe l blade was followed by removing the access needle. A 5 Kyrgyz peel-away sheath was followed by a 5 Kyr[place]z double-lumen central catheter, trimmed to 32 cm length. The tip of the catheter was positioned centrally and the guidewire removed. The hub of the catheter was fixed to the skin using a sterile StatLock adhesive device, and a sterile dressing was applied. The catheter was irrigated. Fluoroscopy: 0 min Dose: 0 mGy Exposures: 0 images Findings: There is a resistance that is met consistently when the wire is passed beyond the subclavia n vein. Resistance is met at the junction of the subclavian vein and the innominate vein. I was not a ble to pass the central line further than the subclavian level. Central line is intentionally placed short at the subclavian level. There may be central stenosis due to pacemaker wires. Impression: 5 Kyrgyz double lumen peripherally inserted central catheter. Chest x-ray to follow to e valuate tip placement.
[2016-09-17] MEDS: guaiFENesin 600 MG TAB.ER PO SCH (08:33)
[2016-09-17] MEDS ORDERED: POTASSIUM Cl (KCl) 50 ML IV ONE ×2 (08:37→23:47)
[2016-09-17] MEDS ORDERED: MAGNESIUM SULF 1 GM/DEXTROSE 100 ML IV ONE (08:40)
[2016-09-17] MEDS: PANTOPRAZOLE SODIUM 40 MG in NS 100 ML IV SCH ×2 (09:13→20:46)
--- NOTE | 2016-09-17 09:44 | DX ---
Portable chest x-ray 0611 hours. History: Hypoxia. Recent resection of sigmoid colon adenocarcinoma. Findings: Comparison to September 16, 2016. ET tube, NG tube, and pacemaker unit remain in place. PICC line from left arm approach has its tip in the subclavian vein level stable in appearance. There is haziness at the lung bases similar to the p rior study compatible with effusions layering posteriorly with adjacent compressive atelectatic carrasco e. There are no new areas of consolidation. Heart size remains upper limits of normal. Pulmonary vasc ulature is not significant engorged. Impression: 1. Stable mild bibasilar effusions with adjacent compressive atelectatic change. 2. Interventional devices in stable position.
[2016-09-17] MEDS: DEXMEDETOMIDINE HCL 400 MCG in NS 100 ML IV SCH ×2 (11:53→19:52)
--- NOTE | 2016-09-17 12:16 | SOAPPROG ---
SOAP Progress Note Assessment/Plan: Assessment/Plan: 89 Y M c obstructing perforated colon CA s/p low anterior colectomy c Matt pouch and end colostomy, drainage of abdominal abscess; s/ p drainage of hematoma and possible early wound dehiscence repair. Ileus. No ostomy output yet. Rare bowel sounds. Wounds clean, min drainage. Acute respiratory failure. On vent. Possible extubation today. Polymicrobial abscess. ID following. Discussed c RN. Consider TPN tomorrow if ileus continues or unable to extubate. Patient has PICC. He was eating for a short time before his second surgery. 09/17/16 12:14 Subjective: Sedated. Objective: Vital Signs Temp Pulse Resp BP Pulse Ox 36.0 C 68 14 110/59 L 100 09/17/16 08:00 09/17/16 11:00 09/17/16 11:00 09/17/16 11:00 09/17/16 11:00 Microbiology 09/15/16 19:06 Gram Stain - Final Lung Bilateral - Bronchial Washings Laboratory Results 09/17/16 05:00 09/17/16 05:00 09/16/16 09/17/16 09/18/16 05:59 05:59 05:59 Intake Total 4433 4813 Output Total 2040 1450 135 Balance 2393 3363 -135 PT 15.0 SEC (12.0-15.0) 09/17/16 05:00 INR 1.18 (0.83-1.16) H 09/17/16 05:00 sedated on vent ctab anteriorly, although diminished. no definite w/r/r rrr no BS today. ostomy pink. no output. ICD10 Worksheet Patient Problems: Problems Problem Status Diagnosed Acute blood loss anemia Acute GI bleed Acute Orthostatic hypotension Acute Cellulitis Acute
--- NOTE | 2016-09-17 13:08 | PDINTPN ---
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 Intubated yesterday secondary in part to upper airway obstruction. Modest secretions, a chest x-ray with basilar atelectasis/ infiltrates/effusions. Stable on ventilator, can start CPAP weaning. Precedex may a be helpful for this. Cultures negative so far from bronch wash. Metabolic acidosis. Reason for this is somewhat unclear. Has been acidotic since admission, probably related to renal issues. Will stop bicarb drip. Hypotension: Multifactorial. On low-dose dopamine. Secondary to medications, anemia, volume status, chronic illness/albumin, etc. Doubt recurrent abdominal sepsis but monitoring for this. Colon cancer, status post resection. Status post abdominal perforation/abscess. Stable. Off antibiotics. Id following Wound hematoma: Status post I and D 09/15. No evidence of infection. Abnormal mental status. Multifactorial, toxic metabolic primarily. Improving. Acute blood-loss anemia: Status post 3 units of blood since surgery. Hematocrit 31 currently after 1 unit yesterday. No evidence of active ongoing bleeding. Following H&H. DVT prophylaxis: SCDs. Not on anticoagulation secondary to recent bleeding. GI prophylaxis: On pantoprazole twice daily. Nutrition: None for several days, and eating poorly prior to that. TPN not felt to be indicated at this time. Will start trickle feeds with Vivonex. Plan: continue ventilatory support. Can start CPAP weaning Trials. Chest x- ray and blood gas will be followed along with laboratory. Continue to follow hematocrit. Appropriate sedation and pain control on the ventilator will be maintained. Bicarbonate drip will be D/Wesley. dopamine will be continued as needed to maintain a mean arterial pressure of 60 or above. Start tube feedings. Lasix can be considered if blood pressure will tolerate. Cultures will be awaited. All the above was discussed with the patient's family, Surgery,respiratory, nursing, and the ICU multi disciplinary team. 50 minutes of critical care time was spent directly with the patient. Subjective: On ventilator, appears comfortable. More alert today, looks to voice to some extent, starting to respond. Objective: Vital Signs Temp Pulse Resp BP Pulse Ox 36.1 C 68 23 H 102/55 L 100 09/17/16 12:00 09/17/16 12:00 09/17/16 12:00 09/17/16 12:00 09/17/16 12:00 Microbiology 09/15/16 19:06 Gram Stain - Final Lung Bilateral - Bronchial Washings Laboratory Results 09/17/16 05:00 09/17/16 05:00 09/16/16 09/17/16 09/18/16 05:59 05:59 05:59 Intake Total 4433 4813 Output Total 2040 1450 135 Balance 2393 3363 -135 PT 15.0 SEC (12.0-15.0) 09/17/16 05:00 INR 1.18 (0.83-1.16) H 09/17/16 05:00 Laboratory Tests 09/17/16 09/17/16 03:50 05:00 PT 15.0 INR 1.18 H APTT 30.3 D pCO2 28 L pO2 102 H ABG pH 7.46 H O2 Concentration % 40 Actual Respiration Rate 16 SIMV YES Tidal Volume 550 PEEP 5 Pressure Support 7 Calcium 7.7 L Ionized Calcium 1.17 Phosphorus 3.5 D Magnesium 1.8 Total Bilirubin 1.0 AST 15 L ALT 29 Albumin 2.2 L CXR: About the same. By basilar atelectasis/infiltrates persist, left greater than right, with likely effusions. Lines and tubes are in good position. Physical Exam - Physical Exam General Appearance: no apparent distress, other (On ventilator), No unresponsive (Starting to respond) EENT: PERRL/EOMI, ET tube (Endotracheal tube and OG tube in place) Neck: normal inspection (No obvious jugular venous distension) Respiratory: lungs clear (Anteriorly), decreased breath sounds (At bases), rales (On the left), No rhonchi Cardiac/Chest: regular rate, rhythm Abdomen: non-tender, soft, No normal bowel sounds (Bowel sounds present but are diminished) Male Genitalia: other (Roger catheter in place. Input greater than output last) Skin: warm/dry, pallor Lymphatic: no adenopathy Extremities: No pedal edema Neuro/Psych: no motor/sensory deficits (Moves all extremities), No cognition abnormalities (Seems to be responsive, appropriate) ICD10 Worksheet Patient Problems: Problems Problem Status Diagnosed Acute blood loss anemia Acute GI bleed Acute Orthostatic hypotension Acute Cellulitis Acute
[2016-09-17 15:10] LABS: POTASSIUM 4.1 mEq/L (3.5-5.2)
--- NOTE | 2016-09-17 15:36 | SOAPPROG ---
SOAP Progress Note Assessment/Plan: Assessment: 1. ASHA. Presumed post-op ATN. Resolved. Creat at b/l of 2.5. Good UOP. 2. Hypotension. Multifactorial. Requiring low dose DA. 3. Respiratory fx. Wean vent as able per pulm. 4. Acidosis. Resolved. D/c NaHCO3 gtt. 5. Colon Ca. s/p colectomy/Marquez's pouch, reop for hematoma 6. Anemia. Hgb improved s/p PRBC tx yesterday and today. Plan: 09/17/16 15:34 09/17/16 15:36 09/17/16 15:36 09/17/16 15:38 Subjective: Still quite hypotensive w/o dopamine. Failed cpap trial, minimal effort. Crit care note reviewed. Objective: Vital Signs Temp Pulse Resp BP Pulse Ox 36.1 C 67 13 133/75 H 99 09/17/16 12:00 09/17/16 15:00 09/17/16 15:00 09/17/16 15:00 09/17/16 15:00 Microbiology 09/15/16 19:06 Gram Stain - Final Lung Bilateral - Bronchial Washings Laboratory Results 09/17/16 05:00 09/17/16 14:40 09/16/16 09/17/16 09/18/16 05:59 05:59 05:59 Intake Total 4433 4813 Output Total 2040 1450 135 Balance 2393 3363 -135 PT 15.0 SEC (12.0-15.0) 09/17/16 05:00 INR 1.18 (0.83-1.16) H 09/17/16 05:00 Intubated, awake although somewhat sedated. Follows commands RRR, no m/g/r CTAB Abdom with LLL colostomy. Soft, nt +Penile edema. Roger in place 2-3+ sacral, 1+ LE edema Hands warm ICD10 Worksheet Patient Problems: Problems Problem Status Diagnosed Acute blood loss anemia Acute GI bleed Acute Orthostatic hypotension Acute Cellulitis Acute
--- NOTE | 2016-09-17 18:08 | HOSPPROG ---
Hospitalist Progress Note Assessment/Plan: #Acute blood loss anemia -mod-size hematoma in OR today. Needed fascial closing -1 unit RBC periop (09/15). H/H stable today -hold anticoagulation #Acute hypercarbic resp failure -trial weaning today #Metabolic acidosis -suspect driven by underlying CKD -stop bicarb gtt today #Perforated rectosigmoid mass with abscess -s/p Matt -Klebsiella, E coli on culture. Blood cx NGTD -received 10 days of abx; stopped 09/15/16. 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 Will re-eval once extubated #Leukocytosis -resolved #CKD -Cr at baseline, but high-risk with blood loss, hypotension. IVFs. Monitor closely #Diet: clears #DVT px: SCDs #Disp: warrants ICU care with resp failure, intubation Subjective: no acute events. Trying to pull at ET tube Objective: Vital Signs Temp Pulse Resp BP Pulse Ox 36 C 69 12 120/60 100 09/17/16 18:00 09/17/16 18:00 09/17/16 18:00 09/17/16 18:00 09/17/16 18:00 Microbiology 09/15/16 19:06 Gram Stain - Final Lung Bilateral - Bronchial Washings Bronchial Washings Culture - Final Laboratory Results 09/17/16 05:00 09/17/16 14:40 09/16/16 09/17/16 09/18/16 05:59 05:59 05:59 Intake Total 4433 4813 1446 Output Total 2040 1450 585 Balance 2393 3363 861 PT 15.0 SEC (12.0-15.0) 09/17/16 05:00 INR 1.18 (0.83-1.16) H 09/17/16 05:00 - Physical Exam Constitutional: uncomfortable (trying to pull at ET tube) Ears, Nose, Mouth, Throat: moist mucous membranes, other (intubates, opening eyes) Cardiovascular: regular rate and rhythym, no murmur, rub, or gallop Respiratory: no respiratory distress, no rales or rhonchi Gastrointestinal: other (surgical incisions dressed, C/D/I. Ostomy with pink tissue) Genitourinary: no bladder fullness Skin: warm Musculoskeletal: other (restrained) Neurologic: other (following commmands: gripping hands, open and closes eyes to command) ICD10 Worksheet Patient Problems: Problems Problem Status Diagnosed Acute blood loss anemia Acute GI bleed Acute Orthostatic hypotension Acute Cellulitis Acute
[2016-09-17 18:26] LABS: POTASSIUM 3.8 mEq/L (3.5-5.2)
--- NOTE | 2016-09-17 18:45 | PCMIDPN ---
Assessment/Plan: Assessment/Plan: * Polymicrobial intra-abdominal abscess/peritonitis secondary to rectosigmoid mass with perforation status post incision and drainage: Patient completed 10 days of antimicrobial therapy on 09/15/2016. Will continue to observe off antibiotic therapy. If white count increases further (increased today but consistent with prior values except for yesterday) or has persistent need for pressors, may need to consider repeat CT scan of abdomen and pelvis. * Acute respiratory failure: Remains intubated. BAL cultures with mixed oral diana. Chest x-ray without overt pneumonia. Continue observe off antibiotics. 09/17/16 18:42 09/17/16 18:45 Subjective: Intubated, sedated. Continues low-dose dopamine for blood pressure support. Objective: Vital Signs Temp Pulse Resp BP Pulse Ox 36 C 69 12 120/60 100 09/17/16 18:00 09/17/16 18:00 09/17/16 18:00 09/17/16 18:00 09/17/16 18:00 Microbiology 09/15/16 19:06 Gram Stain - Final Lung Bilateral - Bronchial Washings Bronchial Washings Culture - Final Laboratory Results 09/17/16 05:00 09/17/16 18:03 09/16/16 09/17/16 09/18/16 05:59 05:59 05:59 Intake Total 4433 4813 1446 Output Total 2040 1450 585 Balance 2393 3363 861 No antibiotic therapy Chest x-ray with bibasilar atelectasis/effusion BAL with mixed oral diana - Physical Exam General Appearance: no apparent distress EENT: ET Tube, No scleral icterus Respiratory: coarse breath sounds Neck: supple Cardiac/Chest: regular rate, rhythm Abdomen: non-tender, other (Ascitic appearing fluid leaking from prior drain site inferiorly), No distended ICD10 Worksheet Patient Problems: Problems Problem Status Diagnosed Acute blood loss anemia Acute GI bleed Acute Orthostatic hypotension Acute Cellulitis Acute
[2016-09-18] MEDS ORDERED: POTASSIUM Cl (KCl) 20 MEQ/50 ML BAG IV ONE (00:31)
[2016-09-18] MEDS: ALBUTEROL 60 PUFFS/8 GM MDI IH SCH ×6 (00:31→20:07)
[2016-09-18 05:09] LABS: IONIZED CALCIUM 1.21 MMOL/L (1.12-1.30)
[2016-09-18 05:13] LABS: % IMMATURE GRANULYOCYTES 0.5 % (0.0-1.1); ABSOLUTE IMMATURE GRANULOCYTES 0.04 10^3/uL (0.00-0.10); ADD DIFF? NO; ADD MORPH? NO; ADD SCAN? NO; ATYPICAL LYMPHOCYTE FLAG 0 (0-99); FRAGMENT RBC FLAG 20 (0-99); HEMATOCRIT 36.2 % (40.0-51.0); HEMOGLOBIN 11.7 g/dL (13.7-17.5); LEFT SHIFT FLG 0 (0-99); LIPEMIA HEMOLYSIS FLAG 80 (0-99); MEAN CELL HEMOGLOBIN 27.7 pg (27.9-34.1); MEAN CELL HEMOGLOBIN CONCENTR. 32.3 g/dL (32.4-36.7); MEAN CELL VOLUME 85.8 fL (81.5-99.8); PLATELET CLUMPS FLAG 20 (0-99); PLATELET COUNT 196 10^3/uL (150-400); RED BLOOD CELL COUNT 4.22 10^6/uL (4.40-6.38); RED CELL DISTRIBUTION WIDTH 17.1 % (11.5-15.2)
[2016-09-18 05:39] LABS: ALANINE AMINOTRANSFERASE 33 IU/L (21-72); ALKALINE PHOSPHATASE 59 IU/L (38-126); ANION GAP 5 mEq/L (8-16); ASPARTATE AMINOTRANSFERASE 14 IU/L (17-59); BILIRUBIN,TOTAL 0.8 mg/dL (0.1-1.4); CARBON DIOXIDE 25 mEq/l (22-31); CHLORIDE 108 mEq/L (97-110); CREATININE 2.4 mg/dL (0.7-1.3); GLOMERULAR FILTRATION RATE 26; GLUCOSE 88 mg/dL (70-100); MAGNESIUM 1.8 mg/dL (1.6-2.3); POTASSIUM 4.5 mEq/L (3.5-5.2); SODIUM 138 mEq/L (134-144)
[2016-09-18 06:15] LABS: BASE EXCESS -2.8 mEq/L (-2.5-2.5); BICARBONATE 22 mEq/L (22-26); MEASURED OXYGEN SATURATION 97 % (92-95); PCO2 38 mmHg (34-38); PO2 93 mmHg (65-75); TCO2 23 mEq/L (23-27)
[2016-09-18 06:22] LABS: END TIDAL CO2 30; O2 CONCENTRATIION 40 % (0-100); P/F RATIO 233 RATIO; PATIENT RATE 12; SIMV YES
[2016-09-18 06:23] LABS: PRESSURE SUPPORT 7
[2016-09-18] MEDS ORDERED: MAGNESIUM SULF 1 GM/DEXTROSE 100 ML IV ONE (07:38)
[2016-09-18] MEDS: PANTOPRAZOLE SODIUM 40 MG in NS 100 ML IV SCH ×2 (08:07→20:37)
--- NOTE | 2016-09-18 08:39 | DX ---
Single Frontal Chest September 18, 2016 Clinical Indication: Follow up consolidations. Comparison: September 17, 2016. Findings: Endotracheal tube, nasogastric tube, and pacer are stable. There is an opacity in the retro cardiac space. Basilar atelectatic changes are present at the right base. Bones are grossly unremarka ble. Impressions 1. Stable right basilar atelectatic change and slight increase in the retrocardiac consolidation or a telectasis as compared to one day prior. 2. Endotracheal tube, nasogastric tube, and pacer, unchanged.
--- NOTE | 2016-09-18 08:54 | PCMIDPN ---
Assessment/Plan: # Polymicrobial Peritonitis: s/p 7 days antibiotics, off antibiotics since . WBC remains normal, AF. Continue to monitor off antibiotics # Resp failure: attempting weaning # R Arm swelling, known DVT, now L arm swelling --LUE US shows a superficial DVT associated with the PICC line. Will likely need interval monitoring with ultrasound to evaluate for extension. Cannot moved to the other arm because of known DVT # renal insufficiency: Creatinine clearance is very low Medications no antibiotics Microbiology 09/05 pelvic aspirate: Gram stain 3+ PMNs, 3+ GPCs in chains; culture: 3+ Klebsiella, 3+ E coli 09/15 BAL: mixed OP diana Subjective: No specific events overnight, patient remains on a low dose of dobutamine, patient opens eyes to verbal stimulation Objective: Vital Signs Temp Pulse Resp BP Pulse Ox 36.8 C 84 11 L 97/61 L 100 09/18/16 08:08 09/18/16 08:08 09/18/16 08:08 09/18/16 08:00 09/18/16 08:08 Microbiology 09/15/16 19:06 Gram Stain - Final Lung Bilateral - Bronchial Washings Bronchial Washings Culture - Final Laboratory Results 09/18/16 04:20 09/18/16 04:20 09/17/16 09/18/16 09/19/16 05:59 05:59 05:59 Intake Total 4813 2482.5 Output Total 1450 1295 Balance 3363 1187.5 - Physical Exam General Appearance: other (Patient opens eyes to verbal stimulation) EENT: pale conjunctiva, ET Tube Respiratory: lungs clear Cardiac/Chest: irregularly irregular Extremities: inflammation (Redness along the medial aspect of the left arm associated with the PICC line), swelling (Bilateral upper extremities) Abdomen: non-tender, soft, other (Ostomy in the left lower quadrant without stool, midline incision healing well) Male Genitalia: head Skin: pallor, No rash - Line/s LUE PICC Lines: erythema, No drainage ICD10 Worksheet Patient Problems: Problems Problem Status Diagnosed Acute blood loss anemia Acute GI bleed Acute Orthostatic hypotension Acute Cellulitis Acute
--- NOTE | 2016-09-18 12:33 | HOSPPROG ---
Hospitalist Progress Note Assessment/Plan: #Acute blood loss anemia: due to mod-size hematoma. -Fascial closing in OR on 09/15. -1 unit RBC periop (09/15). H/H stable today -hold anticoagulation #Acute hypercarbic resp failure -trial weaning today #Metabolic acidosis -resolved. Suspect driven by underlying CKD #Perforated rectosigmoid mass with abscess -s/p Matt -Klebsiella, E coli on culture. Blood cx NGTD -received 10 days of abx; stopped 09/15/16. Remains afebrile. Cont to monitor #Sigmoid adenocarcinoma: s/p resection #Acute encephalopathy -following more commands with me this morning. Will re-eval once extubated #Leukocytosis -resolved #CKD -Cr at baseline, but high-risk with blood loss, hypotension. IVFs. Monitor closely #Diet: clears #DVT px: SCDs #Disp: warrants ICU care with resp failure, intubation Subjective: failed vent wean overnight Objective: Vital Signs Temp Pulse Resp BP Pulse Ox 36.5 C 83 16 90/78 L 99 09/18/16 11:00 09/18/16 11:00 09/18/16 11:00 09/18/16 11:00 09/18/16 11:00 Microbiology 09/15/16 19:06 Gram Stain - Final Lung Bilateral - Bronchial Washings Bronchial Washings Culture - Final Laboratory Results 09/18/16 04:20 09/18/16 04:20 09/17/16 09/18/16 09/19/16 05:59 05:59 05:59 Intake Total 4813 2482.5 Output Total 1450 1295 Balance 3363 1187.5 PT 15.0 SEC (12.0-15.0) 09/17/16 05:00 INR 1.18 (0.83-1.16) H 09/17/16 05:00 - Physical Exam Constitutional: uncomfortable (trying to pull out ET tube) Ears, Nose, Mouth, Throat: moist mucous membranes Cardiovascular: regular rate and rhythym, no murmur, rub, or gallop Respiratory: no respiratory distress, rhonchi Gastrointestinal: normoactive bowel sounds, soft, non-tender abdomen, other ( surgical incisions C/D/I) Genitourinary: no bladder fullness, head in urethra Skin: warm Musculoskeletal: other (restrained. LUE PICC) Neurologic: other (following commands, gives thumbs up) Psychiatric: anxious ICD10 Worksheet Patient Problems: Problems Problem Status Diagnosed Acute blood loss anemia Acute GI bleed Acute Orthostatic hypotension Acute Cellulitis Acute
--- NOTE | 2016-09-18 12:37 | US ---
Left Upper Extremity Duplex Venous Ultrasound September 18, 2016 Indication: Redness and swelling. PICC in place. Technique: The left upper extremity deep venous system was interrogated with trevino-scale, color, and D oppler imaging. Findings: Occlusive thrombus is present in the left basilic vein along the course of the indwelling P ICC. The thrombus does not extend into the deep venous system. The axillary, brachial, cephalic, radi al, and ulnar veins, as well as the internal jugular vein, normally compress and have appropriate blo od flow. The subclavian vein and innominate vein have normal flow and phasicity. No mass or enlarged lymph node. Impression: Superficial thrombophlebitis in the left basilic vein along the course of the PICC. No ex tension into the deep venous system. Comment: A voicemail was left for Dr. Monserrat August at time study dictation (12:30 p.m. on September 18, 2016).
--- NOTE | 2016-09-18 12:56 | SOAPPROG ---
SOAP Progress Note Assessment/Plan: Assessment: 89yo male s/p colon resection, Marquez's, for sigmoid mass, bleeding. s/p Incision and Drainage of abd wall hematoma 09/15, delerium, anemia s/p transfusion , resp failure extubated, on clears PE extubated, awake, follows simple commands abdomen incision clean/dry, soft Plan seen with Dr Cortes 09/18/16 12:53 Objective: Vital Signs Temp Pulse Resp BP Pulse Ox 36.5 C 83 16 90/78 L 99 09/18/16 11:00 09/18/16 11:00 09/18/16 11:00 09/18/16 11:00 09/18/16 11:00 Microbiology 09/15/16 19:06 Gram Stain - Final Lung Bilateral - Bronchial Washings Bronchial Washings Culture - Final Laboratory Results 09/18/16 04:20 09/18/16 04:20 09/17/16 09/18/16 09/19/16 05:59 05:59 05:59 Intake Total 4813 2482.5 Output Total 1450 1295 Balance 3363 1187.5 PT 15.0 SEC (12.0-15.0) 09/17/16 05:00 INR 1.18 (0.83-1.16) H 09/17/16 05:00 ICD10 Worksheet Patient Problems: Problems Problem Status Diagnosed Acute blood loss anemia Acute GI bleed Acute Orthostatic hypotension Acute Cellulitis Acute
[2016-09-18] MEDS: CARBOXYMETHYLCELLULOSE 1% 0.4 ML DROPERETTE EACHEYE PRN ×2 (14:51→18:37)
--- NOTE | 2016-09-18 15:19 | SOAPPROG ---
SOAP Progress Note Assessment/Plan: Assessment: ASHA, creat better at 2.5, continues to slowly improve hyperkalemia, resolved Anemia following CKD 4, baseline creat about 2.5 mild hypernatremia, better on 1/2 NS delirium better, answers questions appropriately resp failure, now off vent since about 929 today Plan: continue antibiotics for his GNR pelvic infection no urgent HD needs follow lytes vol and renal function keep 1/2 NS for now 09/10/16 13:44 09/11/16 13:06 09/12/16 10:55 09/12/16 11:00 09/18/16 15:15 Subjective: up to chair very weak up with max assist of 2, but sitting u nicely in chair denies pain, nausea (eating some Jell-o) no nausea abd pain vomiting spirits good Objective: Vital Signs Temp Pulse Resp BP Pulse Ox 36.6 C 99 16 153/89 H 96 09/18/16 14:00 09/18/16 15:00 09/18/16 15:00 09/18/16 15:00 09/18/16 15:00 Microbiology 09/15/16 19:06 Gram Stain - Final Lung Bilateral - Bronchial Washings Bronchial Washings Culture - Final Laboratory Results 09/18/16 04:20 09/18/16 04:20 09/17/16 09/18/16 09/19/16 05:59 05:59 05:59 Intake Total 4813 2482.5 Output Total 1450 1295 Balance 3363 1187.5 PT 15.0 SEC (12.0-15.0) 09/17/16 05:00 INR 1.18 (0.83-1.16) H 09/17/16 05:00 Physical Exam - Physical Exam General Appearance: alert, cachetic (no rhor wh) Cardiac/Chest: regular rate, rhythm, systolic murmur, No edema, No gallop Abdomen: non-tender, soft Skin: other (multiple ecchymoses) Extremities: swelling Neuro/Psych: alert, oriented x 3 ICD10 Worksheet Patient Problems: Problems Problem Status Diagnosed Acute blood loss anemia Acute GI bleed Acute Orthostatic hypotension Acute Cellulitis Acute
--- NOTE | 2016-09-18 16:41 | PDINTPN ---
Accounts Payable Specialist Progress Note Assessment/Plan: Assessment: Acute respiratory failure. Intubate secondary in part to upper airway obstruction. Modest secretions, a chest x-ray with basilar atelectasis/ infiltrates/effusions. Stable on ventilator, did well with CPAP weaning and extubated earlier today. Metabolic acidosis. Reason for this is somewhat unclear. Has been acidotic since admission, probably related to renal issues. Will stop bicarb drip. Hypotension: Multifactorial, resolving. Secondary to medications, anemia, volume status, chronic illness/albumin, etc. Colon cancer, status post resection. Status post abdominal perforation/abscess. Stable. Off antibiotics. Id following Wound hematoma: Status post I and D 09/15. No evidence of infection. Abnormal mental status: improved. Acute blood-loss anemia: Status post 3 units of blood since surgery. Hematocrit 36 currently. No evidence of active ongoing bleeding. Following H& H. DVT prophylaxis: SCDs. He has a superficial thrombophlebitis related to his PICC line. Will start prophylactic heparin GI prophylaxis: On pantoprazole twice daily. Nutrition: To start oral feedings post extubation Plan: Continue to monitor in intensive care unit post extubation. Follow chest x-ray. Continue to follow hematocrit. Assess for swallow safety: If okay, start p.o.s. Start subcu heparin. Lasix can be considered if blood pressure will tolerate. All the above was discussed with the patient's family, Surgery, respiratory, nursing, and the ICU multi disciplinary team. 40 minutes of critical care time was spent directly with the patient. Subjective: did well on CPAP wean this morning, awake, alert. Endotracheal tube removed. Objective: Vital Signs Temp Pulse Resp BP Pulse Ox 36.6 C 99 21 H 119/69 96 09/18/16 14:00 09/18/16 16:00 09/18/16 16:00 09/18/16 16:00 09/18/16 16:00 Microbiology 09/15/16 19:06 Gram Stain - Final Lung Bilateral - Bronchial Washings Bronchial Washings Culture - Final Laboratory Results 09/18/16 04:20 09/18/16 04:20 09/17/16 09/18/16 09/19/16 05:59 05:59 05:59 Intake Total 4813 2482.5 Output Total 1450 1295 Balance 3363 1187.5 PT 15.0 SEC (12.0-15.0) 09/17/16 05:00 INR 1.18 (0.83-1.16) H 09/17/16 05:00 Laboratory Tests 09/18/16 09/18/16 04:20 06:05 pCO2 38 pO2 93 H ABG pH 7.37 O2 Concentration % 40 Actual Respiration Rate 12 Tidal Volume 550 PEEP 5 Pressure Support 7 Calcium 8.0 L Ionized Calcium 1.21 Phosphorus 3.6 Magnesium 1.8 AST 14 L ALT 33 Albumin 2.0 L CXR: about the same, by basilar atelectasis or small infiltrates. Possible small effusion on the left Physical Exam - Physical Exam General Appearance: alert, no apparent distress, thin, other ( wanted the tracheal tube out prior to extubation) EENT: ET tube, other (og. No stridor) Neck: normal inspection (s JVD) Respiratory: lungs clear (y), decreased breath sounds ( at the bases), rales ( few basilar), No rhonchi, No wheezing Cardiac/Chest: regular rate, rhythm Abdomen: non-tender, soft, No normal bowel sounds ( decreased, present) Male Genitalia: other Skin: warm/dry, pallor Extremities: pedal edema ( trace) Neuro/Psych: no motor/sensory deficits ( moves all extremities equally), No cognition abnormalities ICD10 Worksheet Patient Problems: Problems Problem Status Diagnosed Acute blood loss anemia Acute GI bleed Acute Orthostatic hypotension Acute Cellulitis Acute
[2016-09-18] MEDS: D5W 1/2 NS 1,000 ML IV SCH (17:07)
[2016-09-18 18:43] LABS: POTASSIUM 4.6 mEq/L (3.5-5.2)
[2016-09-18] MEDS: HEPARIN 5,000 UNIT/0.5 ML SYR SC SCH (20:37)
[2016-09-18] MEDS: IPRATROPIUM/ALBUTEROL 3 ML DEYVIAL IH SCH (21:29)
[2016-09-19 04:32] LABS: IONIZED CALCIUM 1.18 MMOL/L (1.12-1.30)
[2016-09-19] MEDS: IPRATROPIUM/ALBUTEROL 3 ML DEYVIAL IH SCH ×4 (04:38→20:56)
[2016-09-19 04:44] LABS: % IMMATURE GRANULYOCYTES 0.4 % (0.0-1.1); ABSOLUTE IMMATURE GRANULOCYTES 0.03 10^3/uL (0.00-0.10); ADD DIFF? NO; ADD MORPH? NO; ADD SCAN? NO; ATYPICAL LYMPHOCYTE FLAG 0 (0-99); FRAGMENT RBC FLAG 20 (0-99); HEMATOCRIT 29.7 % (40.0-51.0); HEMOGLOBIN 9.6 g/dL (13.7-17.5); LEFT SHIFT FLG 0 (0-99); LIPEMIA HEMOLYSIS FLAG 80 (0-99); MEAN CELL HEMOGLOBIN 27.6 pg (27.9-34.1); MEAN CELL HEMOGLOBIN CONCENTR. 32.3 g/dL (32.4-36.7); MEAN CELL VOLUME 85.3 fL (81.5-99.8); PLATELET CLUMPS FLAG 10 (0-99); PLATELET COUNT 170 10^3/uL (150-400); RED BLOOD CELL COUNT 3.48 10^6/uL (4.40-6.38)
[2016-09-19] MEDS: CARBOXYMETHYLCELLULOSE 1% 0.4 ML DROPERETTE EACHEYE PRN ×3 (06:15→15:37)
[2016-09-19] MEDS: HEPARIN 5,000 UNIT/0.5 ML SYR SC SCH ×3 (06:19→22:09)
--- NOTE | 2016-09-19 09:03 | HOSPPROG ---
Hospitalist Progress Note Assessment/Plan: DIAGNOSIS: # LOWER GI BLEED/COLON CANCER/STATUS POST RESECTION WITH OG POUCH # PERFORATION OF SIGMOID COLON DUE TO MASS WITH ABSCESS, MANAGED SURGICALLY AND WITH ANTIBIOTIC # ABDOMINAL WALL HEMATOMA # POST HEMORRHAGIC ANEMIA # ACUTE HYPERCARBIC RESPIRATORY FAILURE REQUIRING ONGOING MECHANICAL VENTILATION # ACUTE ENCEPHALOPATHY # DVT RUE FROM IV ACCESS/Superficial VT LUE from picc (prior bleeding issues on anticoag earlier) # ACUTE ON CHRONIC KIDNEY DISEASE, NOW BACK TO BASELINE 2.5 He is now very comfortable breathing nasal cannula oxygen. At this time he will require ongoing therapies for profound weakness with ongoing supportive care and nutritional support. He may eventually need [facility] facility for ongoing rehabilitation PLANS: -Physical and occupational therapies -Nutritional in general supportive care -Likely [facility] facility care depending on his progress -repeat hemoglobin today will follow that closely, follow renal function closely as well -Watch his arms very closely, no anticoagulation at this time -eventual Oncology consult I reviewed the patient's condition and care closely with Dr. 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, my personal review: Sinus rhythm Exam: alert oriented skin warm dry color ok resps not labored lungs clear BSs heart regular abd soft minimally distended nontender, bowel sounds present; incision site looks good, small amount of soft stool in ostomy bag limbs warm, slight edema of legs, the upper extremities both with more notable edema iv site ok Laboratory data: Creatinine now at baseline at 2.4 Hemoglobin down to 9 and half today Objective: Vital Signs Temp Pulse Resp BP Pulse Ox 37.3 C 89 14 129/63 H 97 09/19/16 06:00 09/19/16 06:00 09/19/16 06:00 09/19/16 06:00 09/19/16 06:00 Laboratory Results 09/19/16 04:20 09/19/16 04:20 09/18/16 09/19/16 09/20/16 06:59 06:59 06:59 Intake Total 2482.5 1611 Output Total 1295 1300 Balance 1187.5 311 PT 15.0 SEC (12.0-15.0) 09/17/16 05:00 INR 1.18 (0.83-1.16) H 09/17/16 05:00 ICD10 Worksheet Patient Problems: Problems Problem Status Diagnosed Acute blood loss anemia Acute GI bleed Acute Orthostatic hypotension Acute Cellulitis Acute
[2016-09-19] MEDS: PANTOPRAZOLE SODIUM 40 MG in NS 100 ML IV SCH ×2 (09:06→20:24)
--- NOTE | 2016-09-19 10:43 | SOAPPROG ---
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 - No need for dialysis. - Ok to continue current IVFs. - Will continue to monitor. Anemia: Hgb 9.6, no need for inpatient epo, will monitor. Subjective: No acute events overnight. Pt feeling comfortable, not in any pain, good UOP, has no complaints. Objective: Vital Signs Temp Pulse Resp BP Pulse Ox 37.4 C 100 21 H 149/95 H 93 09/19/16 08:00 09/19/16 10:00 09/19/16 10:00 09/19/16 10:00 09/19/16 10:00 Laboratory Results 09/19/16 04:20 09/19/16 04:20 09/18/16 09/19/16 09/20/16 05:59 05:59 05:59 Intake Total 2482.5 1611 Output Total 1295 1300 Balance 1187.5 311 PT 15.0 SEC (12.0-15.0) 09/17/16 05:00 INR 1.18 (0.83-1.16) H 09/17/16 05:00 General: alert and oriented, no acute distress Eyes: EOMI, PERRL OP: Clear CV: RRR Resp: CTA bilat, nonlabored respirations Abd: Soft, nontender Ext: no edema Neuro: CN II-XII grossly intact, no asterixis Psych: cooperative, appropriate mood and affect ICD10 Worksheet Patient Problems: Problems Problem Status Diagnosed Acute blood loss anemia Acute GI bleed Acute Orthostatic hypotension Acute Cellulitis Acute
--- NOTE | 2016-09-19 18:28 | PDINTPN ---
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 Resolved. Intubate secondary in part to upper airway obstruction. Chest x-ray with basilar atelectasis/infiltrates/ effusions. Has done well since extubation. Metabolic acidosis. resolved, probably secondary to renal insufficiency. Hypotension: Resolved. Multifactorial. Secondary to medications, anemia, volume status, chronic illness/albumin, etc. Colon cancer, status post resection. Status post abdominal perforation/abscess. Stable. Off antibiotics. Id following Wound hematoma: Status post I and D 09/15. No evidence of infection. Abnormal mental status: improved/resolved. Acute blood-loss anemia: Status post 3 units of blood since surgery. Hematocrit drifting down again: 29 currently. No evidence of active ongoing bleeding. Following H&H. DVT prophylaxis: SCDs. He has a superficial thrombophlebitis related to his PICC line. On prophylactic heparin GI prophylaxis: On pantoprazole twice daily. Nutrition: To start oral feedings post extubation Plan: Continue to monitor hematocrit, laboratory. Follow chest x-ray intermittently. Continue subcu heparin. Subjective: Doing well, up in chair. On room air. Denies shortness of breath. No cough. Denies significant pain. Oriented. Good since of humor. Objective: Vital Signs Temp Pulse Resp BP Pulse Ox 37.1 C 105 H 26 H 146/75 H 94 09/19/16 17:10 09/19/16 17:10 09/19/16 17:10 09/19/16 17:10 09/19/16 17:10 Laboratory Results 09/19/16 04:20 09/19/16 04:20 09/18/16 09/19/16 09/20/16 05:59 05:59 05:59 Intake Total 2482.5 1611 970 Output Total 1295 1300 700 Balance 1187.5 311 270 PT 15.0 SEC (12.0-15.0) 09/17/16 05:00 INR 1.18 (0.83-1.16) H 09/17/16 05:00 Physical Exam - Physical Exam General Appearance: alert, no apparent distress, thin EENT: other ( On room air) Neck: normal inspection ( no JVD) Respiratory: lungs clear ( anteriorly), decreased breath sounds ( at bases, few rales), No rhonchi, No wheezing Cardiac/Chest: regular rate, rhythm ( to sinus tach at times), systolic murmur Abdomen: non-tender, soft, No normal bowel sounds ( decreased, present) Male Genitalia: other ( Roger catheter in place, good urine output) Skin: warm/dry, pallor Lymphatic: no adenopathy Extremities: pedal edema ( trace) Neuro/Psych: no motor/sensory deficits ( moves all extremities equally), No cognition abnormalities ICD10 Worksheet Patient Problems: Problems Problem Status Diagnosed Acute blood loss anemia Acute GI bleed Acute Orthostatic hypotension Acute Cellulitis Acute
[2016-09-19 19:07] LABS: ALANINE AMINOTRANSFERASE 35 IU/L (21-72); ALBUMIN 1.6 g/dL (3.5-5.0); ALKALINE PHOSPHATASE 68 IU/L (38-126); ANION GAP 5 mEq/L (8-16); ASPARTATE AMINOTRANSFERASE 20 IU/L (17-59); BILIRUBIN,TOTAL 0.7 mg/dL (0.1-1.4); CALCIUM 7.7 mg/dL (8.5-10.4); CARBON DIOXIDE 22 mEq/l (22-31); CHLORIDE 107 mEq/L (97-110); CREATININE 2.3 mg/dL (0.7-1.3); GLOMERULAR FILTRATION RATE 27; GLUCOSE 223 mg/dL (70-100); MAGNESIUM 1.7 mg/dL (1.6-2.3); SODIUM 134 mEq/L (134-144); TOTAL PROTEIN 3.4 g/dL (6.3-8.2)
[2016-09-19] MEDS: D5W 1/2 NS 1,000 ML IV SCH (19:46)
[2016-09-19] MEDS ORDERED: HALOPERIDOL LACT 5 MG/ML INJ IVP PRN (23:41)
[2016-09-20] MEDS: IPRATROPIUM/ALBUTEROL 3 ML DEYVIAL IH SCH ×4 (05:05→20:28)
[2016-09-20] MEDS: HEPARIN 5,000 UNIT/0.5 ML SYR SC SCH ×3 (06:14→23:29)
[2016-09-20 06:55] LABS: HEMATOCRIT 31.4 % (40.0-51.0); HEMOGLOBIN 10.1 g/dL (13.7-17.5); MEAN CELL HEMOGLOBIN 27.7 pg (27.9-34.1); MEAN CELL HEMOGLOBIN CONCENTR. 32.2 g/dL (32.4-36.7); MEAN CELL VOLUME 86.3 fL (81.5-99.8); RED BLOOD CELL COUNT 3.64 10^6/uL (4.40-6.38); RED CELL DISTRIBUTION WIDTH 16.9 % (11.5-15.2)
[2016-09-20 07:24] LABS: ALBUMIN 1.7 g/dL (3.5-5.0); ANION GAP 8 mEq/L (8-16); CALCIUM 8.1 mg/dL (8.5-10.4); CARBON DIOXIDE 22 mEq/l (22-31); CHLORIDE 110 mEq/L (97-110); CREATININE 2.2 mg/dL (0.7-1.3); GLOMERULAR FILTRATION RATE 28; GLUCOSE 61 mg/dL (70-100); MAGNESIUM 1.7 mg/dL (1.6-2.3); POTASSIUM 4.3 mEq/L (3.5-5.2); SODIUM 140 mEq/L (134-144)
--- NOTE | 2016-09-20 09:12 | SOAPPROG ---
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 - No need for dialysis. - Ok to continue current IVFs, would keep his I/Os net even. - Will continue to monitor. Anemia: Hgb stable at 10.1, no need for inpatient epo, will monitor. Subjective: No acute events overnight. Pt states that he feels fine, not that happy about leaving ICU. He denies any pain, no dyspnea. Objective: Vital Signs Temp Pulse Resp BP Pulse Ox 36.4 C 93 14 151/74 H 92 09/20/16 08:26 09/20/16 08:26 09/20/16 08:26 09/20/16 08:26 09/20/16 08:26 Laboratory Results 09/20/16 06:45 09/20/16 06:45 09/19/16 09/20/16 09/21/16 05:59 05:59 05:59 Intake Total 1611 970 Output Total 1300 1950 Balance 311 -980 PT 15.0 SEC (12.0-15.0) 09/17/16 05:00 INR 1.18 (0.83-1.16) H 09/17/16 05:00 General: alert and oriented, no acute distress Eyes: EOMI, PERRL OP: Clear CV: RRR Resp: CTA bilat, nonlabored respirations Abd: Soft, NT Ext: no edema Neuro: no asterixis, CN II-XII grossly intact ICD10 Worksheet Patient Problems: Problems Problem Status Diagnosed Acute blood loss anemia Acute GI bleed Acute Orthostatic hypotension Acute Cellulitis Acute
[2016-09-20] MEDS: PANTOPRAZOLE SODIUM 40 MG in NS 100 ML IV SCH ×2 (11:12→19:44)
--- NOTE | 2016-09-20 11:15 | SOAPPROG ---
SOAP Progress Note Assessment/Plan: Assessment: s/p colon resection and evacuation of hematoma Diet as tolerated Activity as tolerated. No heavy lifting pushing or pulling greater than 15 lbs for 5 weeks S: Feeling good "thats what good clean living will do for you" O: Colostomy with stool in bag Incision cdi BS present. Soft and non distended Plan: 09/20/16 11:14 Objective: Vital Signs Temp Pulse Resp BP Pulse Ox 36.4 C 88 16 151/74 H 92 09/20/16 08:26 09/20/16 10:20 09/20/16 10:20 09/20/16 08:26 09/20/16 10:20 Laboratory Results 09/20/16 06:45 09/20/16 06:45 09/19/16 09/20/16 09/21/16 05:59 05:59 05:59 Intake Total 1611 970 Output Total 1300 1950 Balance 311 -980 PT 15.0 SEC (12.0-15.0) 09/17/16 05:00 INR 1.18 (0.83-1.16) H 09/17/16 05:00 ICD10 Worksheet Patient Problems: Problems Problem Status Diagnosed Acute blood loss anemia Acute GI bleed Acute Orthostatic hypotension Acute Cellulitis Acute
--- NOTE | 2016-09-20 17:37 | HOSPPROG ---
Hospitalist Progress Note Assessment/Plan: DIAGNOSIS: # LOWER GI BLEED/COLON CANCER/STATUS POST RESECTION WITH OG POUCH # PERFORATION OF SIGMOID COLON DUE TO MASS WITH ABSCESS, MANAGED SURGICALLY AND WITH ANTIBIOTIC # ABDOMINAL WALL HEMATOMA # POST HEMORRHAGIC ANEMIA # ACUTE HYPERCARBIC RESPIRATORY FAILURE REQUIRING ONGOING MECHANICAL VENTILATION # ACUTE ENCEPHALOPATHY # DVT RUE FROM IV ACCESS/Superficial VT LUE from [facility] (prior bleeding issues on anticoag earlier) # ACUTE ON CHRONIC KIDNEY DISEASE, NOW BACK TO BASELINE 2.5 Progressing very well overall. He will need ongoing physical therapy and I expect he can probably go to [facility] facility in the very near future. Will discuss with surgery team. PLANS: -Physical and occupational therapies -Nutritional and general supportive care -Likely [facility] facility care depending on his progress -Watch his arms very closely, no anticoagulation at this time -eventual Oncology consult I reviewed the patient's condition and care closely with Dr. 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: Sinus rhythm Exam: alert oriented skin warm dry color ok resps not labored lungs clear BSs heart regular abd soft minimally distended nontender, bowel sounds present; incision site looks good, significant soft brown stool in ostomy bag today limbs warm, slight edema of legs is unchanged, the upper extremities still with some edema iv site ok Objective: Vital Signs Temp Pulse Resp BP Pulse Ox 36.4 C 91 16 147/77 H 92 09/20/16 15:46 09/20/16 15:50 09/20/16 15:50 09/20/16 15:46 09/20/16 15:50 Laboratory Results 09/20/16 06:45 09/20/16 06:45 09/19/16 09/20/16 09/21/16 06:59 06:59 06:59 Intake Total 1611 970 Output Total 1300 1950 400 Balance 311 -980 -400 PT 15.0 SEC (12.0-15.0) 09/17/16 05:00 INR 1.18 (0.83-1.16) H 09/17/16 05:00 ICD10 Worksheet Patient Problems: Problems Problem Status Diagnosed Acute blood loss anemia Acute GI bleed Acute Orthostatic hypotension Acute Cellulitis Acute
--- NOTE | 2016-09-20 18:37 | SOAPPROG ---
SOAP Progress Note Assessment/Plan: Assessment: Acute respiratory failure. Resolved. Intubate secondary in part to upper airway obstruction. Chest x-ray with basilar atelectasis/infiltrates/ effusions. Has done well since extubation. Metabolic acidosis. resolved, probably secondary to renal insufficiency. Hypotension: Resolved. Multifactorial. Secondary to medications, anemia, volume status, chronic illness/albumin, etc. Colon cancer, status post resection. Status post abdominal perforation/abscess. Stable. Off antibiotics. Wound hematoma: Status post I and D 09/15. No evidence of infection. Abnormal mental status: improved/resolved. Acute blood-loss anemia: Status post 3 units of blood since surgery. Hematocrit stable: 31 currently. No evidence of active ongoing bleeding. Following H&H. DVT prophylaxis: SCDs. He has a superficial thrombophlebitis related to his PICC line. On prophylactic heparin GI prophylaxis: On pantoprazole twice daily. Nutrition: Eating Plan: Continue to monitor hematocrit, laboratory intermittently. Follow chest x-ray prior to discharge. Continue subcu heparin. Subjective: Doing well. Up in chair, on room air. Denies shortness of breath Objective: Vital Signs Temp Pulse Resp BP Pulse Ox 36.4 C 91 16 147/77 H 92 09/20/16 15:46 09/20/16 15:50 09/20/16 15:50 09/20/16 15:46 09/20/16 15:50 Laboratory Results 09/20/16 06:45 09/20/16 06:45 09/19/16 09/20/16 09/21/16 05:59 05:59 05:59 Intake Total 1611 970 860 Output Total 1300 1950 400 Balance 311 -980 460 PT 15.0 SEC (12.0-15.0) 09/17/16 05:00 INR 1.18 (0.83-1.16) H 09/17/16 05:00 Physical Exam - Physical Exam General Appearance: alert, no apparent distress EENT: other (On room air) Neck: normal inspection, other (No stridor) Respiratory: lungs clear (Anteriorly), decreased breath sounds (At bases, few rales) Cardiac/Chest: regular rate, rhythm, systolic murmur Abdomen: non-tender, soft, No normal bowel sounds (Decreased, present) Male Genitalia: other (Roger catheter remains in place, good urine output) Skin: warm/dry, pallor Extremities: pedal edema (Trace) Neuro/Psych: no motor/sensory deficits, No cognition abnormalities ICD10 Worksheet Patient Problems: Problems Problem Status Diagnosed Acute blood loss anemia Acute GI bleed Acute Orthostatic hypotension Acute Cellulitis Acute
[2016-09-20] MEDS ORDERED: HALOPERIDOL LACT 5 MG/ML INJ IM PRN (19:28)
[2016-09-21] MEDS: IPRATROPIUM/ALBUTEROL 3 ML DEYVIAL IH SCH ×4 (05:09→21:52)
[2016-09-21] MEDS: HEPARIN 5,000 UNIT/0.5 ML SYR SC SCH ×3 (06:05→20:04)
[2016-09-21] MEDS: PANTOPRAZOLE SODIUM 40 MG in NS 100 ML IV SCH ×2 (07:40→20:06)
--- NOTE | 2016-09-21 09:41 | SOAPPROG ---
SOAP Progress Note Assessment/Plan: Assessment: s/p colon resection and evacuation of hematoma Diet as tolerated Activity as tolerated. No heavy lifting pushing or pulling greater than 15 lbs for 5 weeks S: Less interactive this am O: Colostomy bag recently changed. [place] with good profile Incision cdi BS present. Soft and non distended Plan: 09/20/16 11:14 09/21/16 09:41 Objective: Vital Signs Temp Pulse Resp BP Pulse Ox 37.0 C 103 H 24 H 145/79 H 89 L 09/21/16 07:46 09/21/16 07:46 09/21/16 07:46 09/21/16 07:46 09/21/16 07:46 Laboratory Results 09/20/16 06:45 09/20/16 06:45 09/20/16 09/21/16 09/22/16 05:59 05:59 05:59 Intake Total 970 910 Output Total 1950 1250 Balance -980 -340 PT 15.0 SEC (12.0-15.0) 09/17/16 05:00 INR 1.18 (0.83-1.16) H 09/17/16 05:00 ICD10 Worksheet Patient Problems: Problems Problem Status Diagnosed Acute blood loss anemia Acute GI bleed Acute Orthostatic hypotension Acute Cellulitis Acute
--- NOTE | 2016-09-21 10:01 | SOAPPROG ---
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 - No need for dialysis. - Will continue IVFs at 50ml/hr. - Will continue to monitor - ordered labs for tomorrow am Anemia: Hgb stable at 10.1, no need for inpatient epo, will monitor, ordered labs for tomorrow. Subjective: No acute events overnight. Pt a little confused this am but with no complaints. Continues to have good UOP. Objective: Vital Signs Temp Pulse Resp BP Pulse Ox 37.0 C 103 H 24 H 145/79 H 89 L 09/21/16 07:46 09/21/16 07:46 09/21/16 07:46 09/21/16 07:46 09/21/16 07:46 Laboratory Results 09/20/16 06:45 09/20/16 06:45 09/20/16 09/21/16 09/22/16 05:59 05:59 05:59 Intake Total 970 910 Output Total 1950 1250 Balance -980 -340 PT 15.0 SEC (12.0-15.0) 09/17/16 05:00 INR 1.18 (0.83-1.16) H 09/17/16 05:00 General: alert and oriented, no acute distress Eyes: EOMI, PERRL OP: Clear CV: RRR Resp: CTA bilat, nonlabored respirations Abd: Soft, NT Ext: no edema Neuro: no asterixis, CN II-XII grossly intact ICD10 Worksheet Patient Problems: Problems Problem Status Diagnosed Acute blood loss anemia Acute GI bleed Acute Orthostatic hypotension Acute Cellulitis Acute
--- NOTE | 2016-09-21 15:09 | HOSPPROG ---
Hospitalist Progress Note Assessment/Plan: DIAGNOSIS: # LOWER GI BLEED/COLON CANCER/STATUS POST RESECTION WITH OG POUCH # PERFORATION OF SIGMOID COLON DUE TO MASS WITH ABSCESS, MANAGED SURGICALLY AND WITH ANTIBIOTIC # ABDOMINAL WALL HEMATOMA # POST HEMORRHAGIC ANEMIA # ACUTE HYPERCARBIC RESPIRATORY FAILURE REQUIRING ONGOING MECHANICAL VENTILATION # ACUTE ENCEPHALOPATHY # DVT RUE FROM IV ACCESS/Superficial VT LUE from picc (prior bleeding issues on anticoag earlier) # ACUTE ON CHRONIC KIDNEY DISEASE, NOW BACK TO BASELINE 2.5 Progressing very well overall. He will need ongoing physical therapy and I expect he can probably go to [facility] in the very near future. Will discuss with surgery team. PLANS: -Physical and occupational therapies -Nutritional and general supportive care -Likely [facility] facility care depending on his progress -Watch his arms very closely, no anticoagulation at this time -eventual Oncology consult I reviewed the patient's condition and care closely with Dr. Jeff August today Have also reviewed patient on multidisciplinary rounds SUBJECTIVE: At this time says no abdominal Pain Still having stool from ostomy No fever symptoms, shortness of breath, chest pain The patient accidentally removed his PICC catheter last evening. 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: Sinus rhythm Exam: alert oriented skin warm dry color ok no jaundice resps not labored lungs clear BSs heart regular abd soft minimally distended nontender, bowel sounds present; incision site looks good, significant soft brown stool in ostomy bag today limbs warm, slight edema of legs is unchanged, the upper extremities still with some edema PICC catheter site without evidence of hematoma or other injury after his removal of the device Objective: Vital Signs Temp Pulse Resp BP Pulse Ox 36.3 C 110 H 24 H 129/90 H 90 L 09/21/16 12:00 09/21/16 12:00 09/21/16 12:00 09/21/16 12:00 09/21/16 12:00 Laboratory Results 09/20/16 06:45 09/20/16 06:45 09/20/16 09/21/16 09/22/16 06:59 06:59 06:59 Intake Total 970 910 Output Total 1950 1250 Balance -980 -340 PT 15.0 SEC (12.0-15.0) 09/17/16 05:00 INR 1.18 (0.83-1.16) H 09/17/16 05:00 ICD10 Worksheet Patient Problems: Problems Problem Status Diagnosed Acute blood loss anemia Acute GI bleed Acute Orthostatic hypotension Acute Cellulitis Acute
[2016-09-22 04:56] LABS: HEMATOCRIT 33.9 % (40.0-51.0); HEMOGLOBIN 10.5 g/dL (13.7-17.5); MEAN CELL HEMOGLOBIN 27.1 pg (27.9-34.1); MEAN CELL VOLUME 87.6 fL (81.5-99.8); RED BLOOD CELL COUNT 3.87 10^6/uL (4.40-6.38); RED CELL DISTRIBUTION WIDTH 16.8 % (11.5-15.2)
[2016-09-22] MEDS: IPRATROPIUM/ALBUTEROL 3 ML DEYVIAL IH SCH (05:00)
[2016-09-22 05:09] LABS: ANION GAP 8 mEq/L (8-16); CALCIUM 8.6 mg/dL (8.5-10.4); CARBON DIOXIDE 24 mEq/l (22-31); CHLORIDE 112 mEq/L (97-110); CREATININE 1.9 mg/dL (0.7-1.3); GLOMERULAR FILTRATION RATE 34; GLUCOSE 77 mg/dL (70-100); POTASSIUM 3.7 mEq/L (3.5-5.2); SODIUM 144 mEq/L (134-144)
[2016-09-22] MEDS: HEPARIN 5,000 UNIT/0.5 ML SYR SC SCH ×3 (05:52→21:31)
--- NOTE | 2016-09-22 09:16 | SOAPPROG ---
SOAP Progress Note Assessment/Plan: Assessment/Plan: ASHA on CKD stage IV: resolved, baseline is 2.5, Cr currently 1.9, likely reflective of some loss of muscle mass this hospitalization. - No need for dialysis. - Will stop IVFs. - Will continue to monitor. Anemia: Hgb stable at 10.5, no need for inpatient epo, will continue to monitor. Subjective: No acute events overnight. Pt sleepy this am, states he is not having pain or dyspnea, has no complaints. Noted pt without IV and not getting IVFs. Objective: Vital Signs Temp Pulse Resp BP Pulse Ox 37.2 C 98 20 136/66 H 88 L 09/22/16 07:30 09/22/16 07:30 09/22/16 07:30 09/22/16 07:30 09/22/16 07:30 Laboratory Results 09/22/16 04:09 09/22/16 04:09 09/21/16 09/22/16 09/23/16 05:59 05:59 05:59 Intake Total 910 100 Output Total 1250 925 Balance -340 -825 PT 15.0 SEC (12.0-15.0) 09/17/16 05:00 INR 1.18 (0.83-1.16) H 09/17/16 05:00 General: somnolent but arousable, no acute distress Eyes: EOMI, PERRL OP: Clear CV: RRR Resp: CTA bilat, nonlabored respirations Abd: Soft, NT/ND Ext: +1 edema BLE Neuro: no asterixis ICD10 Worksheet Patient Problems: Problems Problem Status Diagnosed Acute blood loss anemia Acute GI bleed Acute Orthostatic hypotension Acute Cellulitis Acute
[2016-09-22] MEDS ORDERED: PANTOPRAZOLE SODIUM 40 MG TAB PO SCH (09:56)
[2016-09-22] MEDS ORDERED: NON-FORMULARY NEW DRUG (Omeprazole [Prilosec 20 Mg] 20 MG) PO PRN (10:01)
[2016-09-22] MEDS ORDERED: PROTOCOL K PHOSPHATE 1 DOSE IV PRN (10:01)
[2016-09-22] MEDS ORDERED: predniSONE 20 MG TAB PO ONE (10:19)
[2016-09-22] MEDS: PANTOPRAZOLE SODIUM 40 MG in NS 100 ML IV SCH (11:09)
--- NOTE | 2016-09-22 12:41 | US ---
Right Lower Extremity Venous Doppler Study Clinical Indications: Right lower extremity swelling. Technique: High-frequency transducer was used for compression imaging and Doppler study of the deep veins legs from the upper calves to the groins. Pulsed Doppler and color Doppler were utilized, along with various maneuvers to assess flow in the deep veins. Findings: Right Leg: The deep veins of the groin, thigh, knee, and upper calf are well displayed and normally compressible. Doppler flow patterns are unremarkable. There is no evidence of deep venous thrombosi s. mild swelling is present The left common femoral vein is patent, competent and compressible. Impression: No evidence of right lower extremity DVT. Please see separate report for upper extremity venous duplex bilateral.
--- NOTE | 2016-09-22 12:48 | US ---
Bilateral Upper extremity venous duplex - September 22, 2016 at 1103 hours Clinical indication: Follow up clot. Comparison: September 18, 2016. Please see separate report for venous duplex of the right lower extremity performed today as well. Findings: This is a limited examination due to bandages in the upper arms. The right internal jugula r, innominate, subclavian, axillary, basilic, brachial, radial, and cephalic veins are patent, compet ent and compressible. Left internal jugular, innominate, subclavian, axillary, basilic, brachial, radial, and ulnar veins a re patent, competent and compressible. The area of incompressibility on the prior examination in the left basilic vein previously associated with the PIC line has resolved. Impression: No evidence of residual clot of the upper extremities Critical results relayed by Dr. Rik Baldwin to Dr. Alka Cooper on September 22, 2016 at 1240 hours .
--- NOTE | 2016-09-22 14:43 | DX ---
Chest, AP Upright and Lateral Views, at 1:51 p.m. Clinical History: 89-year-old male inpatient with hypoxia. Comparison Study: Chest, dated September 18, 2016, at 6:34 a.m. Findings: The patient is rotated to the left. There is stable positioning of a dual-lead left subclav david transvenous pacemaker, with leads' terminating in the right atrium and the right ventricle. Telem etry monitoring lead lines are present. There has been an interval extubation and removal of an esoph agogastric tube. The cardiac silhouette size is at the upper limits of normal and there is persistent left retrocardiac pleuroparenchymal consolidation, as well as some right basilar airspace disease an d a small right pleural effusion. There is no pneumothorax. The pulmonary vasculature is stable. Impression: 1. Compared to September 18, 2016, the patient has been extubated and the esophagogastric tube has been removed. 2. Persistent left retrocardiac pleural-parenchymal consolidation, as well as some right basilar airs pace disease and a small right pleural effusion.
[2016-09-22] MEDS ORDERED: FUROSEMIDE 40 MG TAB PO ONE (15:40)
--- NOTE | 2016-09-22 15:45 | HOSPPROG ---
Hospitalist Progress Note Assessment/Plan: * Lower GIB due to colon cancer s/p resection/colostomy -outpatient oncology consult -no heavy lifting/pushing/pulling greater than 15 lbs for 5 weeks * Colon perforation with abscess - resolved -off antibiotics * Abdominal wall hematoma due to anticoagulation * Acute respiratory failure s/p extubation * Metabolic encephalopathy - improved * UE DVT due to IV access - anticoagulation held due to bleeding -repeat US without clot -borderline O2 sats - check V/Q r/o PE -if evidence for ongoing clot would re-attempt anticoagulation - otherwise okay without * Acute on chronic renal failure - now better than baseline 2.5 * CHB s/p PCM * Gout - resume chronic prednisone -right knee with increasing effusion/pain - suspect gout -consider as outpatient transition to renally adjusted allopurinol/colchicine * Iron deficient anemia - resume PO iron Subjective: No new complaints. Objective: Vital Signs Temp Pulse Resp BP Pulse Ox 37.1 C 105 H 18 143/77 H 90 L 09/22/16 12:00 09/22/16 12:00 09/22/16 12:00 09/22/16 12:00 09/22/16 12:00 Laboratory Results 09/22/16 04:09 09/22/16 04:09 09/21/16 09/22/16 09/23/16 05:59 05:59 05:59 Intake Total 910 100 Output Total 1250 925 350 Balance -340 -825 -350 PT 15.0 SEC (12.0-15.0) 09/17/16 05:00 INR 1.18 (0.83-1.16) H 09/17/16 05:00 CXR viewed, my personal interpretation is: possible mild pulmonary edema Repeat US both arms and right leg: no clot - Physical Exam Constitutional: no apparent distress, appears nourished, not in pain Cardiovascular: regular rate and rhythym, no murmur, rub, or gallop Respiratory: no respiratory distress, no rales or rhonchi, clear to auscultation Gastrointestinal: normoactive bowel sounds, soft, non-tender abdomen, no palpable masses Skin: no rashes or abrasions, no fluctuance, no induration Neurologic: sensation intact bilaterally Psychiatric: interacting appropriately, not anxious, not encephalopathic, thought process linear ICD10 Worksheet Patient Problems: Problems Problem Status Diagnosed Acute blood loss anemia Acute GI bleed Acute Orthostatic hypotension Acute Cellulitis Acute
[2016-09-23 05:28] LABS: ALBUMIN 1.7 g/dL (3.5-5.0); ANION GAP 4 mEq/L (8-16); CALCIUM 8.3 mg/dL (8.5-10.4); CARBON DIOXIDE 28 mEq/l (22-31); CHLORIDE 110 mEq/L (97-110); CREATININE 1.9 mg/dL (0.7-1.3); GLOMERULAR FILTRATION RATE 34; GLUCOSE 114 mg/dL (70-100); POTASSIUM 3.6 mEq/L (3.5-5.2); SODIUM 142 mEq/L (134-144)
[2016-09-23] MEDS: HEPARIN 5,000 UNIT/0.5 ML SYR SC SCH ×2 (05:28→14:17)
[2016-09-23] MEDS ORDERED: FUROSEMIDE 20 MG TAB PO SCH (09:00)
[2016-09-23] MEDS ORDERED: LISINOPRIL 5 MG TAB PO SCH (09:00)
[2016-09-23] MEDS ORDERED: predniSONE 5 MG TAB PO SCH (09:00)
--- NOTE | 2016-09-23 09:40 | SOAPPROG ---
SOAP Progress Note Assessment/Plan: Assessment:Plan: ARF on CRF-initially resolved -had post-op ATN after colon resection with colostomy and aníbal's pouch on 09/05/2016 -creatinine peaked at 3.6 on 09/08/2016 -remained stable after second trip to OR -now down to 1.9 -edematous CKD-baseline 2.5 -sees Dr. Cardoza as outpatient Edema-on lasix 20mg daily -CPM -I/O 100/925, 600/775 -IVF stopped yesterday 09/23/16 09:39 Subjective: sleeping in chair Objective: Vital Signs Temp Pulse Resp BP Pulse Ox 36.1 C 75 16 127/62 H 100 09/23/16 07:53 09/23/16 07:53 09/23/16 07:53 09/23/16 07:53 09/23/16 07:53 Laboratory Results 09/22/16 04:09 09/23/16 04:15 09/22/16 09/23/16 09/24/16 05:59 05:59 05:59 Intake Total 100 600 Output Total 925 775 Balance -825 -175 PT 15.0 SEC (12.0-15.0) 09/17/16 05:00 INR 1.18 (0.83-1.16) H 09/17/16 05:00 Physical Exam - Physical Exam General Appearance: no apparent distress EENT: normal ENT inspection Neck: normal inspection Respiratory: normal breath sounds Cardiac/Chest: regular rate, rhythm Abdomen: normal bowel sounds Extremities: swelling (2+ to knees) ICD10 Worksheet Patient Problems: Problems Problem Status Diagnosed Acute blood loss anemia Acute GI bleed Acute Orthostatic hypotension Acute Cellulitis Acute
--- NOTE | 2016-09-23 10:27 | SOAPPROG ---
SOAP Progress Note Assessment/Plan: Assessment/Plan: 89 Y M c obstructing perforated colon CA s/p low anterior colectomy c Matt pouch and end colostomy, drainage of abdominal abscess; s/ p drainage of hematoma and possible early wound dehiscence repair. Tolerating diet. Good ostomy output. Ostomy pink. Wounds clean. Afebrile. Min serous drainage from lateral laparoscopic site--dress daily c gauze until dry. Seen and examined yesterday as well. 09/23/16 10:28 Subjective: Denies pain. Sleeping in recliner. Easily arousable and cooperative verbally although not opening eyes. Objective: Vital Signs Temp Pulse Resp BP Pulse Ox 36.1 C 75 16 127/62 H 100 09/23/16 07:53 09/23/16 07:53 09/23/16 07:53 09/23/16 07:53 09/23/16 07:53 Laboratory Results 09/22/16 04:09 09/23/16 04:15 09/22/16 09/23/16 09/24/16 05:59 05:59 05:59 Intake Total 100 600 Output Total 925 775 Balance -825 -175 PT 15.0 SEC (12.0-15.0) 09/17/16 05:00 INR 1.18 (0.83-1.16) H 09/17/16 05:00 alert, seems oriented. slow to answer questions. just woke up. mmm no jaundice no wob abd soft +BS, liquid stool in ostomy bag, inc clean, no erythema, min serous drainage R abd trocar inc ICD10 Worksheet Patient Problems: Problems Problem Status Diagnosed Acute blood loss anemia Acute GI bleed Acute Orthostatic hypotension Acute Cellulitis Acute
[2016-09-23 12:14] VITALS: BP 120/57; PULSE 78; RESP 18; TEMP 97.2
--- NOTE | 2016-09-23 13:54 | NM ---
Nuclear Medicine Ventilation/Perfusion Lung Scan at 1041 hours Clinical Indications: Positive deep venous thrombosis. Left lower lobe opacity on chest x-ray Comparison Studies: Chest x-ray 09/22/2016 Technique: Ventilation imaging was performed with 20.1 mCi of 133 xenon, administered by inhalation. Single-breath, equilibrium, and washout phases were imaged. Perfusion imaging was performed with 5. 5 mCi of technetium 99m MAA injected intravenously. Perfusion images were acquired in multiple proje ctions. Ventilation Findings: Patchy activity noted in both lungs without evidence of large perfusion defect s. Perfusion Findings: Small subsegmental perfusion defect in the right lung apex posteriorly. No evide nce of large mismatch perfusion defects. Impression: Low probability for pulmonary embolus. Cosigned: Dr. Raffy Alvarado.
[2016-09-23] MEDS ORDERED: FUROSEMIDE 20 MG/2 ML VIAL IVP ONE (14:13)
[2016-09-23 14:15] VITALS: O2SAT 91
--- NOTE | 2016-09-23 14:16 | PDIAF ---
- Diagnosis Diagnosis: New diagnosis colon cancer s/p resection Code Status: Full Code - Medication Management Discharge Medications: Medications to Continue on Transfer Cholecalciferol Vit D3 [Vitamin D3 (*)] 2,000 units PO DAILY 09/03/16 [Last Taken 09/03/16] Ferrous Sulfate [Ferrous Sulf 325 MG (*)] 325 mg PO Q2D 09/03/16 [Last Taken ] Furosemide [Lasix 20 MG (*)] 20 mg PO DAILY 09/03/16 [Last Taken 09/03/16] Omeprazole [Prilosec 20 mg] 20 mg PO DAILY PRN 09/03/16 [Last Taken 09/03/16] Lisinopril [Zestril 5 mg (*)] 5 mg PO DAILY 09/04/16 [Last Taken 09/03/16] predniSONE 5 mg PO DAILY 09/04/16 [Last Taken 09/03/16] Acetaminophen [Tylenol 325mg (*)] 650 mg PO Q4HRS PRN #0 tab 09/23/16 [Last Taken Unknown] Furosemide [Lasix 20 MG (*)] 20 mg PO DAILY@14 PRN #30 tab 09/23/16 [Last Taken Unknown] Discharge Medications: Refer to the Discharge Home Medication list for PRN reason. - Orders Services needed: Physical Therapy, Occupational Therapy, Speech Language Pathologist Oxygen: okay to give 2nd dose lasix in afternoon for persisant edema Diet Recommendation: no restrictions on diet Diet Texture: Dysphagia 3 - Advanced - Moist, Bite-Size, Thin Liquids, Meds Whole w/Liquids, Meds Whole in Puree, Meds Crushed in Puree Wound Care Instructions: Colostomy care instructions for nursing staff: patient will need ongoing assistance w/ appliance changes and emptying collection pouch. Procedure to change skin barrier base (wafer) of a two-piece ostomy pouching system: -Assemble supplies at bedside. Patient currently using a two- piece 10/21 flat, moldable Hurley appliance. -Empty pouch; Carefully peel soiled barrier away from skin (use Sensicare adhesive remover if patient c/o tenderness). - Gently wipe stoma and peristomal skin with toilet paper, then with damp washcloth (plain water--no soap). Pat dry. -If there is any redness around the stoma or peristomal tissue, apply Cavilon skin barrier. If excess moisture is present, apply a light sprinkling of stoma powder over the affected areas. (Avoid use of stoma paste, unless instructed to use by WOCRN.). -Remove plastic backing from skin barrier wafer. Place over stoma and gently mold the opening at the center of the hydrocolloid so that it will fit like a turtleneck around the stoma. (Jono skin barriers are moldable using gloved fingers-- no need to use scissors). -Snap the pouch flange to the skin barrier flange. Do a gentle tug- test to make sure that the flanges are securely connected all the way around (like a Tupperware lid) to prevent stool from leaking from any gaps. - Remove the paper backing around the outer sections of the wafer and smooth into place. Check to make sure the skin barrier is securely attached to the skin all the way around. -Secure the drainable end of the pouch by folding it up, following the built-in folds, until the Velcro strips can be secured to each other. Activity/Weight Bearing Restrictions: no heavy lifting/pushing/pulling greater than 15 lbs for 5 weeks Additional: Family requests no narcotics and no sleeping pills - Labs/Radiology Imaging Orders: Outpatient oncology consult for new diagnosis colon cancer - Follow Up Care Current Providers and Referrals: Tito Cortes MD [Medical Doctor] - Gaudencio Ruiz MD [Primary Care Provider] - As per Instructions Pacheco Cardoza MD [Medical Doctor] -
--- NOTE | 2016-09-23 14:26 | ECHO ---
[id number] + + [phone] : : [place] [address] : : [phone] + + Adult Echocardiographic Report + ------+ :Name: CHANDANA MATTHEWS MStudy Date: 09/23/2016 01:24 PM BP: 120/57 mmHg : : Hospital Admission Number: [id number]: [facility]: :: 1925 Gender: Male Height: 67 in : :Age: 89 yrs Race: WH Weight: 146 lb : :Reason For Study: chf : : BSA: 1.8 meters 2 : :History: CHF : + ------+ MMode/2D Measurements & Calculations IVSd: 1.2 cm RVDd: 3.5 cm FS: 26.1 % Ao root diam: LVPWd: 1.0 cm LVIDd: 4.3 cm EDV(Teich): 81.3 ml3.3 cm LVIDs: 3.2 cm ESV(Teich): 39.4 ml EF(Teich): 51.5 % LVOT diam: 2.1 cmLVLd ap4: 10.5 cm SV(MOD-sp4): LVOT area: EDV(MOD-sp4): 85.0 ml 3.5 cm2 182.0 ml LVLs ap4: 8.6 cm ESV(MOD-sp4): 97.0 ml EF(MOD-sp4): 46.7 % Normal Measurement Values: + + :LVIDd (3.5-5.7cm) IVSd (0.6-1.1cm) LVPWd (0.6-1.1cm) Aortic Root (2.0-3.7cm)Left Atrium (1.5-4.0cm): :LV Vol(d) (76-115ml) LV Vol(s) (29-48ml) Ejec Fraction (50-65%)PV Leonard (0.6- 1.2m/s) TV Leonard (0.4-1.0m/s) : :MV E Leonard (0.8-1.0m/s)MV A Leonard (0.3-1.0m/s)LVOT Leonard (0.7-1.2m/s) Asc Ao Leonard ( 0.9-1.8m/s) : + + Doppler Measurements & Calculations MV E max leonard: Ao mean PG: LV V1 max: SV(LVOT): 33.8 cm/sec 11.0 mmHg 78.5 cm/sec 59.2 ml MV A max leonard: Ao V2 mean: LV V1 max P.6 cm/sec 162.0 cm/sec 2.5 mmHg MV E/A: 0.38 Ao V2 VTI: 44.9 cm LV V1 mean PG: ANA(I,D): 1.3 cm2 1.0 mmHg LV V1 mean: 52.9 cm/sec LV V1 VTI: 17.1 cm PA V2 max: TR max leonard: 114.0 cm/sec 277.0 cm/sec PA max P.2 mmHg TR max P.7 mmHg RAP systole: 5.0 mmHg RVSP(TR): 35.7 mmHg Left Ventricle The left ventricle is normal in size. Left ventricular systolic function is low normal. Ejection Fraction = 50-55%. Abnorml/dyssychronous distal anterior septum to apex most likely secondary to pacemaker. Apical wall motion abnormality may reflect pacemaker activation. Right Ventricle The right ventricle is normal in size and function. There is a pacemaker lead in the right ventricle. Atria The left atrial size is normal. Borderline right atrial enlargement. Mitral Valve The mitral valve leaflets appear thickened, but open well. There is mild mitral annular calcification. There is no mitral valve stenosis. There is mild mitral regurgitation. Tricuspid Valve The tricuspid valve is normal in structure and function. There is no tricuspid stenosis. There is mild tricuspid regurgitation. Right ventricular systolic pressure is 36mmHg. There is Doppler evidence for mild pulmonary hypertension. Aortic Valve The aortic valve is trileaflet. Mild-Moderate Aortic Valve Calcification. Mildly elevated velocity across the aortic valve (mean gradient 11mmHg). Minimal . Trace to mild aortic regurgitation. Pulmonic Valve The pulmonic valve is not well visualized. Great Vessels The aortic root is not well visualized but is probably normal size. Pericardium/Pleural Small pericardial effusion noted mainly around the RV free wall; echogenicity noted within suggesting chronic effusion. Conclusion A two-dimensional transthoracic echocardiogram with M-mode and Doppler was performed. Left ventricular systolic function is low normal. Abnorml/dyssychronous distal anterior septum to apex most likely secondary to pacemaker. Borderline right atrial enlargement. There is mild mitral regurgitation. There is mild tricuspid regurgitation. Right ventricular systolic pressure is 36mmHg. There is Doppler evidence for mild pulmonary hypertension. Trace to mild aortic regurgitation. The aortic root is not well visualized but is probably normal size. Small pericardial effusion noted mainly around the RV free wall; echogenicity noted within suggesting chronic effusion. Ejection Fraction = 50-55%. Mildly elevated velocity across the aortic valve (mean gradient 11mmHg). Minimal Final Reading Physician: Burton Grande signed on 09/23/2016 02:25 PM Ordering Physician: Alka Cooper Performed By: Queenie Da Silva
--- NOTE | 2016-09-23 20:05 | GDS ---
[f rep st] DISCHARGE SUMMARY DISCHARGE DIAGNOSES: 1. Lower gastrointestinal bleed due to colon cancer, status post resection and colostomy. 2. Colon perforation with intraperitoneal abscess. 3. Abdominal wall hematoma due to anticoagulation. 4. Acute respiratory failure, requiring intubation. 5. Metabolic encephalopathy. 6. Upper extremity deep venous thrombosis due to intravenous access. 7. Acute on chronic renal failure. 8. Complete heart block, status post pacemaker. 9. Gout, on chronic prednisone. 10. Iron deficiency anemia. HISTORY: Kapil Guthrie is an 89-year-old male, who presented with a lower GI bleed. Colonoscopy rev ealed a colon cancer. Surgery was consulted and he underwent resection with colostomy placement. Th is was complicated by a colon perforation with peritonitis and intraperitoneal abscess. He had this drained and received a full course of antibiotics, which are complete at the time of hospital dischar . He should follow up with Oncology as an outpatient. He also had an abdominal wall hematoma that required surgical evacuation. This was a complication of anticoagulation, which he required for an upper extremity DVT as a complication of PICC line. Hematoma was evacuated. Anticoagulation was hel d. Followup ultrasounds show complete resolution of all DVTs and V/Q scan is low probability, so we continued to hold off on anticoagulation at this time. He was critically ill and did require intubat ion for acute respiratory failure, but has slowly improved and is back to room air at the time of hos pital discharge. Confusion has resolved and he is back to baseline mental status. He went into acut e renal failure, but is back to his baseline creatinine of 2.5. He did receive quite a bit of IV fluid for resuscitation during his critical illness. He subsequentl y did get some mild pulmonary edema. His echocardiogram was completely unchanged. He was diuresed w ith IV Lasix and is back to room air at the time of hospital discharge. He is also on chronic prednisone for gout. This was held through most of his hospitalization. He brown bsequently developed increasing right knee pain and swelling, which are consistent with another gout flare. He was restarted on prednisone, and the knee pain and swelling rapidly resolved. He follows with Dr. Hampton of Rheumatology for his gout. DISCHARGE MEDICATIONS: Please see computer record for full detailed list. DISCHARGE INSTRUCTIONS: 1. Transferring to group home facility for further rehabilitation. 2. Outpatient Oncology consultation. 3. Colostomy care; please refer to chart for details. 4. No heavy lifting, pushing or pulling greater than 15 pounds for 5 weeks. Greater than 30 minutes' time was spent arranging discharge. Patient was seen and examined by me on day of discharge. /[id number]/MODL
[2016-09-24] MEDS ORDERED: FERROUS SULFATE 325 MG TAB PO SCH (09:00)
== END 2016-09-23 17:38 | DRG 329 ==
LOC: CED 13:26 → CEDHOLD 15:22 → F2N 18:28 → F3E 09-08 16:07 → F2N 09-15 13:30 → F2W 09-19 16:45
PROVIDERS: ADMIT Internal Medicine; ATTEND Internal Medicine
PROC: 0DJ08ZZ Inspection of Upper Intestinal Tract, Via Natural or Artificial Opening Endoscopic (ICD-10-PCS; 2016-09-03)
PROC: 0DBG8ZX Excision of Left Large Intestine, Via Natural or Artificial Opening Endoscopic, Diagnostic (ICD-10-PCS; 2016-09-04)
PROC: 30233N1 Transfusion of Nonautologous Red Blood Cells into Peripheral Vein, Percutaneous Approach (ICD-10-PCS; 2016-09-04)
PROC: 0J9C0ZZ Drainage of Pelvic Region Subcutaneous Tissue and Fascia, Open Approach (ICD-10-PCS; principal; 2016-09-05 15:15)
PROC: 0DBN0ZZ Excision of Sigmoid Colon, Open Approach (ICD-10-PCS; principal; 2016-09-05 15:15)
PROC: 02HV33Z Insertion of Infusion Device into Superior Vena Cava, Percutaneous Approach (ICD-10-PCS; 2016-09-07)
PROC: 0BB38ZZ Excision of Right Main Bronchus, Via Natural or Artificial Opening Endoscopic (ICD-10-PCS; 2016-09-15)
PROC: 0BB78ZX Excision of Left Main Bronchus, Via Natural or Artificial Opening Endoscopic, Diagnostic (ICD-10-PCS; 2016-09-15)
PROC: 5A1935Z Respiratory Ventilation, Less than 24 Consecutive Hours (ICD-10-PCS; 2016-09-15)
PROC: 0BH18EZ Insertion of Endotracheal Airway into Trachea, Via Natural or Artificial Opening Endoscopic (ICD-10-PCS; 2016-09-15)
PROC: 0JC80ZZ Extirpation of Matter from Abdomen Subcutaneous Tissue and Fascia, Open Approach (ICD-10-PCS; 2016-09-15)
PROC: 02HV33Z Insertion of Infusion Device into Superior Vena Cava, Percutaneous Approach (ICD-10-PCS; 2016-09-17)
DX: C18.7 Malignant neoplasm of sigmoid colon (principal); K65.1 Peritoneal abscess; J96.00 Acute respiratory failure, unspecified whether with hypoxia or hypercapnia; G93.41 Metabolic encephalopathy; L76.32 Postprocedural hematoma of skin and subcutaneous tissue following other procedure; T82.868A Thrombosis due to vascular prosthetic devices, implants and grafts, initial encounter; D62 Acute posthemorrhagic anemia; N18.4 Chronic kidney disease, stage 4 (severe); N99.0 Postprocedural (acute) (chronic) kidney failure; M10.9 Gout, unspecified; D50.9 Iron deficiency anemia, unspecified; I12.9 Hypertensive chronic kidney disease with stage 1 through stage 4 chronic kidney disease, or unspecified chronic kidney disease; E87.5 Hyperkalemia; B96.1 Klebsiella pneumoniae [K. pneumoniae] as the cause of diseases classified elsewhere; B96.20 Unspecified Escherichia coli [E. coli] as the cause of diseases classified elsewhere; K44.9 Diaphragmatic hernia without obstruction or gangrene; R33.8 Other retention of urine; Z95.0 Presence of cardiac pacemaker; Z86.718 Personal history of other venous thrombosis and embolism; Z87.891 Personal history of nicotine dependence
CPT/HCPCS: 71020-PO; 80048-PO; 80076-PO; 82270-PO; 83605-PO; 85025-PO; 85520-90; 85610-PO; 85730-PO; 92526-GN; 92610-GN; 96361-PO; 96365-PO; 97001-GP; 97002-GP; 97003-GO; 97004-GO; 97116-GP; 97164-GP; 97168-GO; 97530-GO; 97530-GP; 97535-GO; A9540; A9558; C1751; G0463-PO; G8978-GP-CI; G8978-GP-CJ; G8978-GP-CM; G8979-GP-CI; G8979-GP-CJ; G8980-GP-CI; G8987-GO-CI; G8987-GO-CK; G8987-GO-CM; G8988-GO-CI; G8989-GO-CI; G8996-GN-CL; G8997-GN-CI; J0694; J0697; J1100; J1170; J1265; J1335; J1644; J2250; J2370; J2405; J2543; J2704; J2997; J3010; J3430; J3475; P9016; P9041